=== PATIENT | male | born 1965 | race Caucasian/White ===

== ENCOUNTER → 2016-05-24 | Outpatient (CLI) | payer OTHER ==
[~2016-05-24] MED LIST: CHOLESTEROL MED; MCR5
--- NOTE | 2016-05-24 09:12 | DIAGNOSTIC IMAGING REPORT ---
LEFT HAND 3 VIEWS HISTORY: LEFT HAND PAIN COMPARISON: None. FINDINGS: There is no fracture or dislocation. Mild dorsal soft tissue swelling at the fifth MCP joint. No radiopaque foreign bodies. IMPRESSION: No fractures. Electronically signed by: Garret Arceo M.D. 05/24/2016 9:11 AM Dictated Date/Time: 05/24/2016 9:08 AM
== END | disposition home or self-care (01) ==
LOC: C.RAD1850 08:57
PROVIDERS: ATTEND Emergency Medicine
DX: M79.642 Pain in left hand (principal); W19.XXXA Unspecified fall, initial encounter

== ENCOUNTER → 2016-06-13 | Outpatient (CLI) | payer BC ==
[2016-06-13 13:17] LABS: ESTIMATED AVERAGE GLUCOSE 321 mg/dl; HA1C FLAG Normal (Normal)
[2016-06-13 13:29] LABS: CHOLESTEROL 178 mg/dl (0-200); HDL CHOLESTEROL 45 mg/dl; THYROID STIMULATING HORMONE 0.546 uIu/ml (0.300-4.500); TRIGLYCERIDES 118 mg/dl (0-150); VERY LOW DENSITY LIPOPROT CALC 24 mg/dl
== END | disposition home or self-care (01) ==
LOC: C.LABSPEC 12:38
PROVIDERS: ATTEND Internal Medicine
DX: E11.65 Type 2 diabetes mellitus with hyperglycemia (principal); E78.5 Hyperlipidemia, unspecified; R53.83 Other fatigue

== ENCOUNTER → 2016-10-09 | Outpatient (CLI) | payer BC ==
[~2016-10-09] MED LIST changes: +ASPI81TA28 PO; +FAMO40TA6 PO; +GLC/500 PO; +INSDGIPEN SC; +NVLGI/PEN PO; +NVLGI/PEN SQ; +SIMV80TA2 PO
[2016-10-09 14:19] LABS: ESTIMATED AVERAGE GLUCOSE 272 mg/dl; HA1C FLAG Normal (Normal)
[2016-10-09 15:12] LABS: BLOOD UREA NITROGEN 11 mg/dl (7-18); BUN/CREATININE RATIO 10.9 (10-20); CALCIUM 8.4 mg/dl (8.5-10.1); CARBON DIOXIDE 24 mmol/L (21-32); CHLORIDE 106 mmol/L (98-107); CHOLESTEROL 248 mg/dl (0-200); GLUCOSE 62 mg/dl (70-99); HDL CHOLESTEROL 50 mg/dl; POTASSIUM 3.5 mmol/L (3.5-5.1); SODIUM 142 mmol/L (136-145)
[2016-10-09 15:14] LABS: TRIGLYCERIDES 94 mg/dl (0-150); VERY LOW DENSITY LIPOPROT CALC 19 mg/dl
== END | disposition home or self-care (01) ==
LOC: C.LABSPEC 12:52
PROVIDERS: ATTEND Internal Medicine
DX: Z00.00 Encounter for general adult medical examination without abnormal findings (principal); E78.5 Hyperlipidemia, unspecified; E11.65 Type 2 diabetes mellitus with hyperglycemia

== ENCOUNTER 2017-03-16 17:36 | Emergency (ER) | payer BC ==
[~2017-03-16] VITALS: Ht 157.5 cm; Wt 75.5 kg
[~2017-03-16 17:36] MED LIST changes: -ASPI81TA28 PO; -FAMO40TA6 PO; -GLC/500 PO; -INSDGIPEN SC; -NVLGI/PEN PO; -NVLGI/PEN SQ; -SIMV80TA2 PO
[2017-03-16 17:54] VITALS: TEMP 36.8; Ht 157.5 cm; Wt 75.5 kg
--- NOTE | 2017-03-16 18:25 | EMERGENCY ROOM VISIT NOTE ---
History Report prepared by Tata: Juan Carlos Marie Under the Supervision of: Dr. Felix Hicks M.D. First contact with patient: 18:14 Chief Complaint: ABDOMINAL PAIN Stated Complaint: PAIN IN LEFT SIDE Nursing Triage Summary: abdominal pain. denies n/v/d. pain comes and goes History of Present Illness The patient is a 52 year old male who presents to the Emergency Room with complaints of worsening left-sided abdominal that started 2 days ago. He states that the pain really worsened today. The patient says that movement worsens the pain. He denies any injuries that would have caused the pain. He also denies any nausea, vomiting, diarrhea, fevers, sore throat, chest pain, headaches, constipation, urinary symptoms, or pain or swelling in his testicles. He notes no abdominal surgery history, and still has all his organs. He also notes no history of kidney stones. The patient adds that he has not done anything out of the ordinary at work at [employer] that might have started the pain. He says that when the pain gets really bad, he gets short of breath with bending over. The patient adds that he has had diabetes for 29 years, without any problems. He takes Metformin and insulins. Source of History: patient, family Onset: 2 days ago Position: abdomen (left sided) Quality: other (denies injury) Timing: worsening Modifying Factors (Worsening): movement Associated Symptoms: + SOB (with breathing), No fevers, No headache, No sorethroat, No chest pain, No nausea, No vomiting, No diarrhea, No urinary symptoms Note: Associated symptoms: Denies any constipation, pain or swelling in testicles. Review of Systems See HPI for pertinent positives & negatives. A total of 10 systems reviewed and were otherwise negative. Past Medical & Surgical Medical Problems: (1) Diabetes Old medical records were reviewed. Nurse's notes were reviewed and I agree with. Family History Diabetes mellitus FH: heart disease Hypertension Social History Smoking Status: Never Smoker Alcohol Use: none Marital Status: Housing Status: lives with family Occupation Status: employed Current/Historical Medications Scheduled Aspirin (Aspirin Ec), 81 MG PO DAILY Insulin Aspart (Novolog Flexpen), 25 UNITS PO QAM Insulin Aspart (Novolog Flexpen), 15 UNITS SQ QPM Insulin Glargine (Lantus Solostar), 50 SC QAM Insulin Glargine (Lantus Solostar), 25 SC QPM Metformin Hcl (Glucophage), 500 MG PO BID Simvastatin (Zocor), 80 MG PO QPM Allergies Coded Allergies: Ibuprofen (Verified Adverse Reaction, Unknown, VOMITING, 05/28/09) Physical Exam Vital Signs Date Time Temp Pulse Resp B/P (MAP) Pulse Ox O2 Delivery O2 Flow Rate FiO2 03/16/17 21:42 68 18 128/74 98 03/16/17 20:23 58 18 127/71 98 Room Air 03/16/17 17:54 36.8 86 18 128/79 96 Room Air Physical Exam General: Non-ill appearing middle-aged male in no acute distress. HEENT: Normal cephalic atraumatic. Pupils are equal round and reactive to light. Has baseline nystagmus. Oropharynx is pink with moist mucous membranes. No swelling of the mouth lips or tongue. Neck: Supple with a midline trachea. No meningeal signs or stiffness, no JVD or bruits. No Stridor. Chest: Clear to auscultation bilaterally. No wheezes or rhonchi. No increased work of breathing. Heart: regular rate and rhythm. Abdomen: Mildly tender to palpation in left mid-abdomen. Pain seems to be exacerbated with movement. No masses. Soft, nondistended without rebound guarding or rigidity. Extremities: No cyanosis clubbing or edema. No calf tenderness or assymetry Spine/Back. Non tender to palpation. No CVA tenderness Skin: Good turgor without rashes. Neurologic exam: Cranial nerves two through 12 are intact. Motor and sensation are intact and symmetrical throughout. Medical Decision & Procedures ER Provider Diagnostic Interpretation: CT results as stated below per my review and radiologist interpretation: ABDOMEN AND PELVIS CT WITHOUT CONTRAST CT DOSE: 407.78 mGy.cm HISTORY: Left-sided abdominal pain. eval for diverticulitis TECHNIQUE: Multiaxial CT images of the abdomen and pelvis were performed without contrast. A dose lowering technique was utilized adhering to the principles of ALARA. COMPARISON STUDY: Abdomen and pelvis CT 946. FINDINGS: Tree-in-bud nodular opacities seen within the lung bases. This favors an infectious bronchiolitis. No pneumoperitoneum. No pneumatosis. Mild subcutaneous fat stranding within the left anterolateral abdominal wall. This could represent a small soft tissue contusion. The unenhanced gallbladder, spleen, adrenal glands, kidneys, and pancreas are unremarkable. Mild central mesenteric fat stranding within a few prominent mesenteric lymph nodes. This favors a mild mesenteric panniculitis. Retroperitoneal lymph nodes measure subcentimeter in short axis diameter. Normal bladder. Suboptimal evaluation for bowel pathology due to the lack of intravenous and oral contrast. However, there is no definite bowel wall thickening or obstruction. Normal appendix. Stable 8 mm hypodense lesion within the right hepatic lobe. The long-term stability favors a cyst. IMPRESSION: 1. No definite bowel wall thickening or obstruction. 2. Mild subcutaneous fat stranding within the left anterior abdominal wall. This could represent a small soft tissue contusion. 3. Mild infectious bronchiolitis within the lung bases. 4. Mild mesenteric panniculitis. This is of doubtful clinical significance. 5. Normal appendix. Electronically signed by: Garret Arceo M.D. 03/16/2017 7:30 PM Dictated Date/Time: 03/16/2017 7:22 PM Laboratory Results 03/16/17 18:55 Red Blood Count 4.45, Mean Corpuscular Volume 89.9, Mean Corpuscular Hemoglobin 30.3, Mean Corpuscular Hemoglobin Concent 33.8, Mean Platelet Volume 9.5, Neutrophils (%) (Auto) 69.6, Lymphocytes (%) (Auto) 20.4, Monocytes (%) (Auto) 7.6, Eosinophils (%) (Auto) 1.8, Basophils (%) (Auto) 0.4, Neutrophils # (Auto) 3.40, Lymphocytes # (Auto) 1.00, Monocytes # (Auto) 0.37, Eosinophils # (Auto) 0.09, Basophils # (Auto) 0.02 03/16/17 18:55 Test 03/16/17 18:55 03/16/17 19:19 03/16/17 20:47 White Blood Count 4.89 K/uL (4.8-10.8) Red Blood Count 4.45 M/uL (4.7-6.1) Hemoglobin 13.5 g/dL (14.0-18.0) Hematocrit 40.0 % (42-52) Mean Corpuscular Volume 89.9 fL (80-100) Mean Corpuscular Hemoglobin 30.3 pg (25-34) Mean Corpuscular Hemoglobin Concent 33.8 g/dl (32-36) Platelet Count 180 K/uL (130-400) Mean Platelet Volume 9.5 fL (7.4-10.4) Neutrophils (%) (Auto) 69.6 % Lymphocytes (%) (Auto) 20.4 % Monocytes (%) (Auto) 7.6 % Eosinophils (%) (Auto) 1.8 % Basophils (%) (Auto) 0.4 % Neutrophils # (Auto) 3.40 K/uL (1.4-6.5) Lymphocytes # (Auto) 1.00 K/uL (1.2-3.4) Monocytes # (Auto) 0.37 K/uL (0.11-0.59) Eosinophils # (Auto) 0.09 K/uL (0-0.5) Basophils # (Auto) 0.02 K/uL (0-0.2) RDW Standard Deviation 41.5 fL (36.4-46.3) RDW Coefficient of Variation 12.7 % (11.5-14.5) Immature Granulocyte % (Auto) 0.2 % Immature Granulocyte # (Auto) 0.01 K/uL (0.00-0.02) Anion Gap 8.0 mmol/L (3-11) Est Creatinine Clear Calc Drug Dose 56.2 ml/min Estimated GFR () 67.4 Estimated GFR (Non- 58.2 BUN/Creatinine Ratio 11.0 (10-20) Calcium Level 8.4 mg/dl (8.5-10.1) Total Bilirubin 0.3 mg/dl (0.2-1) Direct Bilirubin mg/dl (0-0.2) Aspartate Amino Transf (AST/SGOT) 11 U/L (15-37) Alanine Aminotransferase (ALT/SGPT) 27 U/L (12-78) Alkaline Phosphatase 94 U/L (45-117) Total Protein 7.0 gm/dl (6.4-8.2) Albumin 3.7 gm/dl (3.4-5.0) Lipase 257 U/L (73-393) Beta-Hydroxybutyric Acid 1.41 mg/dL (0.2-2.81) Chemistry Specimen Hemolysis Urine Color YELLOW Urine Appearance CLEAR (CLEAR) Urine pH 5.5 (4.5-7.5) Urine Specific [place] 1.035 (1.000-1.030) Urine Protein NEG (NEG) Urine Glucose (UA) 3+ (NEG) Urine Ketones NEG (NEG) Urine Occult Blood NEG (NEG) Urine Nitrite NEG (NEG) Urine Bilirubin NEG (NEG) Urine Urobilinogen NEG (NEG) Urine Leukocyte Esterase NEG (NEG) Bedside Glucose 443 mg/dl (70-99) Laboratory studies as stated above per my review. Medications Administered Medications (Trade) Dose Ordered Sig/Mari Route Start Time Stop Time Status Last Admin Dose Admin Insulin Human Regular (novoLIN-R U-100 PER UNIT) 10 units NOW STAT IV 03/16/17 20:05 03/16/17 20:06 DC 03/16/17 20:05 10 UNITS ED Course 1814: Past medical records reviewed. The patient was evaluated in room B3A, and a complete history and physical examination were performed. 1904: The patient just went to CT. 2003: I reevaluated the patient and he is asking for something to drink. His blood sugar is 636 but he forgot to take his medication today. 2004: Ordered Novolin-R U-100 PER UNIT 10 units IV. 2124: Upon reevaluation, the patient is resting. I discussed the results and treatment plan with him. He verbalized agreement of the treatment plan. The patient was discharged home. Medical Decision Differentials include diverticulitis, colitis, musculoskeletal, kidney stone, infection, electrolyte or metabolic abnormality., This patient comes in as described above. He's been having pain for about 2 days in his left mid abdomen and it hurts worse with movement. There's been no trauma. He does have a history of diabetes as well. IV access established and blood work was obtained. I did order a CAT scan without IV contrast given the fact that he is on metformin. He was reassessed frequently. He initially declined pain medication. He has nothing to suggest infection or sepsis. His CAT scan shows no acute intra-abdominal process there is some stranding in the abdominal wall on the left which could be consistent with a contusion this is area he does hurt. It was noted that his blood sugar was over 600 however he has no ketones and no acidosis. He tells me that he ate and did not take his insulin tonight. I educated him that he needs to make sure he does not do that. He was given regular insulin 10 units IV and rechecked it come down and was in the 400 range. He does have a glucometer and he can feel his blood sugar gets low. He desires to go home and I do think this is reasonable. He should use ibuprofen for the pain. He checked his blood sugar frequently especially before bedtime. I told him that I do not want to bottom out tonight and ensure that he does not overcompensate treatment of his blood sugar and if anything run a little high this evening. I recommend that he follow-up with his doctor Sunday for recheck return to ER over the weekend if any further problems with blood sugar, fever or chills, increasing pain, any new problems or concerns. He was happy the plan and discharged to home. Medication Reconcilliation Current Medication List: was personally reviewed by me Blood Pressure Screening Patient's blood pressure: Normal blood pressure Impression Primary Impression: LLQ abdominal pain Additional Impression: Hyperglycemia Scribe Attestation The scribe's documentation has been prepared under my direction and personally reviewed by me in its entirety. I confirm that the note above accurately reflects all work, treatment, procedures, and medical decision making performed by me. Departure Information Dispostion Home / Self-Care Referrals Chas Rod M.D. (PCP) Forms Call Back Authorization, HOME CARE DOCUMENTATION FORM, IMPORTANT VISIT INFORMATION Patient Instructions My [facility] [place] [employer] Additional Instructions Rest. Use acetaminophen (Tylenol ) a maximum of 650 mg every 6 hours Check your blood sugar frequently and especially before bedtime Ensure that you do not miss your insulin in the future Return if: Increasing pain, worsening of symptoms, fever or chills, any new problems or concerns Follow-up with your doctor Sunday for recheck Problem Qualifiers
[2017-03-16 19:15] LABS: BASO % 0.4 %; BASO ABS # 0.02 K/uL (0-0.2); COMPLETE YES; EOS % 1.8 %; IG% 0.2 %; LYMPH % 20.4 %; MEAN CELL VOLUME 89.9 fL (80-100); MEAN CORPUSCULAR HEMOGLOBIN 30.3 pg (25-34); MEAN CORPUSCULAR HGB CONC 33.8 g/dl (32-36); MEAN PLATELET VOLUME 9.5 fL (7.4-10.4); MONO % 7.6 %; NEUT % 69.6 %; PLATELET COUNT 180 K/uL (130-400); RED BLOOD COUNT 4.45 M/uL (4.7-6.1); WHITE BLOOD COUNT 4.89 K/uL (4.8-10.8)
[2017-03-16] MEDS ORDERED: GLC/500 PO (19:16)
[2017-03-16] MEDS ORDERED: SIMV80TA2 PO (19:16)
[2017-03-16] MEDS ORDERED: NVLGI/PEN PO (19:16)
[2017-03-16] MEDS ORDERED: INSDGIPEN SC ×2 (19:16)
[2017-03-16] MEDS ORDERED: ASPI81TA28 PO (19:16)
[2017-03-16] MEDS ORDERED: NVLGI/PEN SQ (19:16)
--- NOTE | 2017-03-16 19:32 | DIAGNOSTIC IMAGING REPORT ---
ABDOMEN AND PELVIS CT WITHOUT CONTRAST CT DOSE: 407.78 mGy.cm HISTORY: Left-sided abdominal pain. eval for diverticulitis TECHNIQUE: Multiaxial CT images of the abdomen and pelvis were performed without contrast. A dose lowering technique was utilized adhering to the principles of ALARA. COMPARISON STUDY: Abdomen and pelvis CT 946. FINDINGS: Tree-in-bud nodular opacities seen within the lung bases. This favors an infectious bronchiolitis. No pneumoperitoneum. No pneumatosis. Mild subcutaneous fat stranding within the left anterolateral abdominal wall. This could represent a small soft tissue contusion. The unenhanced gallbladder, spleen, adrenal glands, kidneys, and pancreas are unremarkable. Mild central mesenteric fat stranding within a few prominent mesenteric lymph nodes. This favors a mild mesenteric panniculitis. Retroperitoneal lymph nodes measure subcentimeter in short axis diameter. Normal bladder. Suboptimal evaluation for bowel pathology due to the lack of intravenous and oral contrast. However, there is no definite bowel wall thickening or obstruction. Normal appendix. Stable 8 mm hypodense lesion within the right hepatic lobe. The long-term stability favors a cyst. IMPRESSION: 1. No definite bowel wall thickening or obstruction. 2. Mild subcutaneous fat stranding within the left anterior abdominal wall. This could represent a small soft tissue contusion. 3. Mild infectious bronchiolitis within the lung bases. 4. Mild mesenteric panniculitis. This is of doubtful clinical significance. 5. Normal appendix. Electronically signed by: Garret Arceo M.D. 03/16/2017 7:30 PM Dictated Date/Time: 03/16/2017 7:22 PM
[2017-03-16 19:39] LABS: URINE APPEARANCE CLEAR (CLEAR); URINE BILIRUBIN NEG (NEG); URINE COLOR YELLOW; URINE NITRITE NEG (NEG); URINE PH 5.5 (4.5-7.5); URINE SPECIFIC GRAVITY 1.035 (1.000-1.030); UROBILINOGEN NEG (NEG)
[2017-03-16 19:41] LABS: ALKALINE PHOSPHATASE 94 U/L (45-117); ALT/SGPT 27 U/L (12-78); AST/SGOT 11 U/L (15-37); BLOOD UREA NITROGEN 15 mg/dl (7-18); CALCIUM 8.4 mg/dl (8.5-10.1); CARBON DIOXIDE 24 mmol/L (21-32); CHLORIDE 97 mmol/L (98-107); GLUCOSE 636 mg/dl (70-99); POTASSIUM 4.4 mmol/L (3.5-5.1); SODIUM 129 mmol/L (136-145)
[2017-03-16 19:42] LABS: MANUAL MICROSCOPIC REQUIRED? NO; REVIEW REQ? NO
[2017-03-16 19:57] LABS: BETA-HYDROXYBUTYRATE 1.41 mg/dL (0.2-2.81)
[2017-03-16] MEDS ORDERED: NovoLIN-R INSULIN PER UNIT CHARGE IV STA (20:05)
[2017-03-16 21:42] VITALS: BP 128/74; PULSE 68; O2SAT 98
== END 2017-03-16 21:47 | disposition home or self-care (01) ==
LOC: C.EDB 17:37
DX: R10.32 Left lower quadrant pain (principal); E11.65 Type 2 diabetes mellitus with hyperglycemia; Z79.4 Long term (current) use of insulin; Z79.82 Long term (current) use of aspirin; Z79.84 Long term (current) use of oral hypoglycemic drugs; Z79.899 Other long term (current) drug therapy; Z88.6 Allergy status to analgesic agent; Z83.3 Family history of diabetes mellitus; Z82.49 Family history of ischemic heart disease and other diseases of the circulatory system

== ENCOUNTER 2017-03-18 10:42 | Emergency (ER) | payer BC ==
[~2017-03-18] VITALS: Ht 162.6 cm; Wt 72.2 kg
[~2017-03-18 10:42] MED LIST changes: +ASPI81TA28 PO; -CHOLESTEROL MED; +GLC/500 PO; +INSDGIPEN SC; -MCR5; +NVLGI/PEN PO; +NVLGI/PEN SQ; +SIMV80TA2 PO
[2017-03-18 10:52] VITALS: Ht 162.6 cm; Wt 72.2 kg
[2017-03-18] MEDS ORDERED: ONDANSETRON INJ 2 MG/ML 2 ML VIAL IV STA (11:18)
[2017-03-18] MEDS ORDERED: GI COCKTAIL PO STA (11:18)
[2017-03-18 11:27] LABS: BASO % 0.3 %; BASO ABS # 0.02 K/uL (0-0.2); COMPLETE YES; EOS % 1.9 %; HEMATOCRIT 42.1 % (42-52); IG% 0.2 %; LYMPH % 14.5 %; LYMPH ABS # 0.85 K/uL (1.2-3.4); MEAN CELL VOLUME 87.7 fL (80-100); MEAN CORPUSCULAR HEMOGLOBIN 30.2 pg (25-34); MEAN CORPUSCULAR HGB CONC 34.4 g/dl (32-36); MEAN PLATELET VOLUME 9.2 fL (7.4-10.4); MONO % 6.5 %; NEUT % 76.6 %; PLATELET COUNT 203 K/uL (130-400); WHITE BLOOD COUNT 5.87 K/uL (4.8-10.8)
[2017-03-18] MEDS ORDERED: FAMOTIDINE 20 MG TAB PO ONE (11:30)
[2017-03-18 11:39] LABS: ALT/SGPT 29 U/L (12-78); AST/SGOT 13 U/L (15-37); BLOOD UREA NITROGEN 11 mg/dl (7-18); BUN/CREATININE RATIO 10.3 (10-20); CALCIUM 8.4 mg/dl (8.5-10.1); CARBON DIOXIDE 27 mmol/L (21-32); CHLORIDE 99 mmol/L (98-107); CREATININE 1.11 mg/dl (0.60-1.40); GLUCOSE 304 mg/dl (70-99); POTASSIUM 3.9 mmol/L (3.5-5.1); SODIUM 134 mmol/L (136-145)
[2017-03-18 11:48] LABS: INR 0.9 (0.9-1.1)
[2017-03-18 11:49] LABS: ALKALINE PHOSPHATASE 79 U/L (45-117); BETA-HYDROXYBUTYRATE 1.29 mg/dL (0.2-2.81)
--- NOTE | 2017-03-18 11:53 | EMERGENCY ROOM VISIT NOTE ---
History Report prepared by Tata: Steve Mejía Under the Supervision of: Dr. Jeronimo Cyr M.D. First contact with patient: 10:59 Chief Complaint: CHEST PAIN Stated Complaint: LEFT ARM AND CHEST PAIN, LEFT SIDE OF STOMACH PAIN History of Present Illness The patient is a 52 year old white male with a past medical history of DM who presents to the ED with a cc of constant, burning, upper chest pain beginning last evening. Patient's last BM was last evening and it was normal. Walking intensifies his pain. Trying Tylenol for pain, but it has showed no relief. Positive 'ball' in his left arm that causes intermittent numbness, left sided abdominal pain, uses chewing tobacco. Negative bad taste in mouth, nausea, vomiting, sweating, changes in medication, cough, chills, fevers, history of blood clots in the legs and lungs, missing medication doses, trauma, heavy lifting, recent travel. Source of History: patient Onset: last evening Position: chest (upper) Quality: burning Timing: constant Modifying Factors (Worsening): other (walking) Associated Symptoms: + abdominal pain, + numbness (intermittent in the left arm, caused by a 'ball' in the arm), No fevers, No chills, No cough, No nausea, No vomiting Note: Negative bad taste in mouth, sweating, changes in medication, history of blood clots in the legs and lungs, missing medication doses, trauma, heavy lifting, recent travel. Review of Systems See HPI for pertinent positives and negatives. A total of ten systems were reviewed and were otherwise negative. Past Medical & Surgical Medical Problems: (1) Diabetes Family History Diabetes mellitus FH: heart disease Hypertension Social History Smoking Status: Never Smoker Smokeless Tobacco Use: Yes Alcohol Use: none Marital Status: Housing Status: lives with significant other Occupation Status: employed Current/Historical Medications Scheduled Aspirin (Aspirin Ec), 81 MG PO DAILY Famotidine (Pepcid), 40 MG PO QD Insulin Aspart (Novolog Flexpen), 25 UNITS PO QAM Insulin Aspart (Novolog Flexpen), 15 UNITS SQ QPM Insulin Glargine (Lantus Solostar), 50 UNITS SC QAM Insulin Glargine (Lantus Solostar), 25 UNITS SC QPM Metformin Hcl (Glucophage), 500 MG PO BID Simvastatin (Zocor), 80 MG PO QPM Allergies Coded Allergies: Ibuprofen (Verified Adverse Reaction, Unknown, VOMITING, 03/18/17) Physical Exam Vital Signs Date Time Temp Pulse Resp B/P (MAP) Pulse Ox O2 Delivery O2 Flow Rate FiO2 03/18/17 14:07 37.0 68 18 108/63 98 03/18/17 11:18 98 Room Air 03/18/17 11:13 72 03/18/17 10:52 37.0 78 18 138/79 98 Room Air Physical Exam GENERAL: Awake, alert, well-appearing, NAD HENT: Normocephalic, atraumatic. EYES: Normal conjunctiva. Sclera non-icteric. NECK: Supple. No nuchal rigidity. FROM. RESPIRATORY: CTAB, no rhonchi, wheezing, crackles CARDIAC: RRR, no MRG ABDOMEN: Soft, ND, BS+, Very mild left abdominal discomfort. Not peritonitic. MSK: No chest wall TTP, no LE edema NEURO: GCS 15, CN 2-12 intact, moves all 4s on command SKIN: No rash or jaundice noted. Medical Decision & Procedures ER Provider Diagnostic Interpretation: X-ray: Per my interpretation, radiologist review. CHEST ONE VIEW PORTABLE HISTORY: Atypical CHEST PAIN COMPARISON: Chest 12/25/2005. FINDINGS: The lungs are clear. Cardiac silhouette is normal in size. No pleural effusions. No pneumothorax. IMPRESSION: No acute process. Electronically signed by: Garret Arceo M.D. 03/18/2017 12:22 PM Dictated Date/Time: 03/18/2017 12:21 PM Laboratory Results 03/18/17 11:04 Red Blood Count 4.80, Mean Corpuscular Volume 87.7, Mean Corpuscular Hemoglobin 30.2, Mean Corpuscular Hemoglobin Concent 34.4, Mean Platelet Volume 9.2, Neutrophils (%) (Auto) 76.6, Lymphocytes (%) (Auto) 14.5, Monocytes (%) (Auto) 6.5, Eosinophils (%) (Auto) 1.9, Basophils (%) (Auto) 0.3, Neutrophils # (Auto) 4.50, Lymphocytes # (Auto) 0.85, Monocytes # (Auto) 0.38, Eosinophils # (Auto) 0.11, Basophils # (Auto) 0.02 03/18/17 11:04 Test 03/18/17 11:04 03/18/17 11:45 White Blood Count 5.87 K/uL (4.8-10.8) Red Blood Count 4.80 M/uL (4.7-6.1) Hemoglobin 14.5 g/dL (14.0-18.0) Hematocrit 42.1 % (42-52) Mean Corpuscular Volume 87.7 fL (80-100) Mean Corpuscular Hemoglobin 30.2 pg (25-34) Mean Corpuscular Hemoglobin Concent 34.4 g/dl (32-36) Platelet Count 203 K/uL (130-400) Mean Platelet Volume 9.2 fL (7.4-10.4) Neutrophils (%) (Auto) 76.6 % Lymphocytes (%) (Auto) 14.5 % Monocytes (%) (Auto) 6.5 % Eosinophils (%) (Auto) 1.9 % Basophils (%) (Auto) 0.3 % Neutrophils # (Auto) 4.50 K/uL (1.4-6.5) Lymphocytes # (Auto) 0.85 K/uL (1.2-3.4) Monocytes # (Auto) 0.38 K/uL (0.11-0.59) Eosinophils # (Auto) 0.11 K/uL (0-0.5) Basophils # (Auto) 0.02 K/uL (0-0.2) RDW Standard Deviation 40.5 fL (36.4-46.3) RDW Coefficient of Variation 12.6 % (11.5-14.5) Immature Granulocyte % (Auto) 0.2 % Immature Granulocyte # (Auto) 0.01 K/uL (0.00-0.02) Prothrombin Time 10.0 SECONDS (9.0-12.0) Prothromb Time International Ratio 0.9 (0.9-1.1) Activated Partial Thromboplast Time 25.7 SECONDS (21.0-31.0) Partial Thromboplastin Ratio 1.0 Anion Gap 8.0 mmol/L (3-11) Est Creatinine Clear Calc Drug Dose 72.5 ml/min Estimated GFR () 89.3 Estimated GFR (Non- 77.0 BUN/Creatinine Ratio 10.3 (10-20) Calcium Level 8.4 mg/dl (8.5-10.1) Total Bilirubin 0.3 mg/dl (0.2-1) Direct Bilirubin < 0.1 mg/dl (0-0.2) Aspartate Amino Transf (AST/SGOT) 13 U/L (15-37) Alanine Aminotransferase (ALT/SGPT) 29 U/L (12-78) Alkaline Phosphatase 79 U/L (45-117) Troponin I < 0.015 ng/ml (0-0.045) Pro-B-Type Natriuretic Peptide 17 pg/ml (0-900) Total Protein 7.2 gm/dl (6.4-8.2) Albumin 3.7 gm/dl (3.4-5.0) Lipase 155 U/L (73-393) Beta-Hydroxybutyric Acid 1.29 mg/dL (0.2-2.81) Urine Color YELLOW Urine Appearance CLEAR (CLEAR) Urine pH 5.0 (4.5-7.5) Urine Specific [place] > 1.045 (1.000-1.030) Urine Protein NEG (NEG) Urine Glucose (UA) 3+ (NEG) Urine Ketones NEG (NEG) Urine Occult Blood NEG (NEG) Urine Nitrite NEG (NEG) Urine Bilirubin NEG (NEG) Urine Urobilinogen NEG (NEG) Urine Leukocyte Esterase NEG (NEG) Laboratory results reviewed by me Medications Administered Medications (Trade) Dose Ordered Sig/Mari Route Start Time Stop Time Status Last Admin Dose Admin Miscellaneous Medication (Gi Cocktail) 24 ml ONE STAT PO 03/18/17 11:18 03/18/17 11:21 DC 03/18/17 12:42 24 ML Famotidine (Pepcid Tab) 20 mg NOW ONCE PO 03/18/17 11:30 03/18/17 11:31 DC 03/18/17 12:42 20 MG Ondansetron HCl (Zofran Inj) 4 mg NOW STAT IV 03/18/17 11:18 03/18/17 11:21 DC 03/18/17 12:44 4 MG ECG Indication: abdominal pain Rate (beats per minute): 63 Rhythm: normal sinus Findings: no ectopy, other (Normal interval, normal axis, no STS or TWI) ED Course 1126: The patient was evaluated in room B12B. A complete history and physical exam was performed. 1308: I reevaluated the patient. Discussed results and discharge instructions: he verbalized understanding and agreement. The patient is ready for discharge. Medical Decision The patient is a 52 year old white male with a past medical history of DM who presents to the ED with a cc of constant, burning, upper chest pain beginning last evening. Etiologies such as cardiac ischemia, aortic dissection, pulmonary embolism, pneumonia, pneumothorax, musculoskeletal, infections, pericarditis, myocarditis, esophageal rupture, gastrointestinal, as well as others were entertained. Patient was seen and evaluated at the bedside. Patient has a known history of diabetes and stated he was having some lower abdominal pain that began on Sunday. Patient denies any nausea or vomiting. Patient states that today he woke up with some burning type chest pain that is across the anterior chest. It does not radiate to the arm or jaw. He denies any lower extremity swelling history of DVT or PE or recent prolonged car or plane travel. Patient states that he takes medications as prescribed. Patient denies any infectious symptoms. Patient states sometimes his pain is worse when he walks. States he does not have a bad taste in the back of his mouth. Patient did have blood work that was completed along with an EKG troponin and chest x-ray. Patient was given treatment for his discomfort. Patient's EKG was normal sinus and did not show any acute ischemic changes. Patient troponin was negative. LFTs and lipase within normal limits. Patient does have elevated glucose. Anion gap within normal limits. Urinalysis negative. Chest x-ray clear. Patient's pain improved. Patient did have a moderately suspicious story given this disconnected but apparent left arm pain. Patient also described his pain as burning and questionably exertional without any nausea, vomiting, diaphoresis or pressure-like pain. Patient less likely PE given a Wells of 0. Given that he had a moderately suspicious story with a normal EKG and negative troponin after 3 days of symptoms and given some mild risk factors he had a heart score of 3 which may have low risk for an suitable for outpatient follow-up and treatment. I did discuss this with the patient was agreeable to this plan of care. Patient was given strict follow-up, discharge, and return precautions. All questions were answered. Patient was deemed suitable for outpatient follow-up at this time. Patient agreed with the plan of care and was safely discharged home. Impression Primary Impression: Tobacco abuse counseling Additional Impressions: Chest pain Abdominal pain Scribe Attestation The scribe's documentation has been prepared under my direction and personally reviewed by me in its entirety. I confirm that the note above accurately reflects all work, treatment, procedures, and medical decision making performed by me. Departure Information Dispostion Home / Self-Care Prescriptions Famotidine (PEPCID) 40 Mg Tab 40 MG PO QD for 30 Days, #30 TAB Prov: Jeronimo Cyr M.D. 03/18/17 Referrals No Doctor, Assigned (PCP) Forms Call Back Authorization, HOME CARE DOCUMENTATION FORM, IMPORTANT VISIT INFORMATION Patient Instructions Chest Pain - [facility], ED GERD, [facility] Additional Instructions Please return to the emergency department if you have worsening or recurrent symptoms not amenable to at-home treatment. Please call for a follow-up appointment with her primary care physician. Please take your medications as prescribed. If you have other concerns and/or complaints please feel free to also call your primary care physician's office or return the ED for further evaluation, management, and treatment. Continued to take your medications as prescribed. Avoid using NSAIDs. Consider smaller meals and avoid spicy or citrus foods. Also consider not laying down after eating. Please follow-up with your PCP for further evaluation. Take your medications as prescribed. You have been examined and treated today on an emergency basis only. This is not a substitute for, or an effort to provide, complete comprehensive medical care. It is impossible to recognize and treat all injuries or illnesses in a single emergency department visit. It is therefore important that you follow up closely with [facility], your PCP, and/or your specialist(s). Call as soon as possible for an appointment. Thank you for your time and consideration. I look forward to speaking with you again soon. Please don't hesitate to call us if you have any questions. Problem Qualifiers Additional Impressions: Chest pain Chest pain type: unspecified Qualified Codes: R07.9 - Chest pain, unspecified Abdominal pain Abdominal location: unspecified location Qualified Codes: R10.9 - Unspecified abdominal pain
[2017-03-18 12:05] LABS: URINE APPEARANCE CLEAR (CLEAR); URINE BILIRUBIN NEG (NEG); URINE COLOR YELLOW; URINE NITRITE NEG (NEG); URINE SPECIFIC GRAVITY > 1.045 (1.000-1.030); UROBILINOGEN NEG (NEG); ZZUR CULT IF INDIC CLEAN CATCH NO
--- NOTE | 2017-03-18 12:23 | DIAGNOSTIC IMAGING REPORT ---
CHEST ONE VIEW PORTABLE HISTORY: Atypical CHEST PAIN COMPARISON: Chest 12/25/2005. FINDINGS: The lungs are clear. Cardiac silhouette is normal in size. No pleural effusions. No pneumothorax. IMPRESSION: No acute process. Electronically signed by: Garret Arceo M.D. 03/18/2017 12:22 PM Dictated Date/Time: 03/18/2017 12:21 PM
[2017-03-18 12:26] LABS: MANUAL MICROSCOPIC REQUIRED? NO; REVIEW REQ? NO
[2017-03-18] MEDS ORDERED: LIDOCAINE HCL 2% VISC SOLN 20 ML UDC ONE (12:35)
[2017-03-18] MEDS ORDERED: ALUMINUM/MAGNESIUM SUSP 30 ML UDC ONE (12:35)
[2017-03-18] MEDS ORDERED: FAMO40TA6 PO (13:28)
[2017-03-18 14:07] VITALS: BP 108/63; PULSE 68; TEMP 37; O2SAT 98
== END 2017-03-18 14:10 | disposition home or self-care (01) ==
LOC: C.EDB 10:43
DX: Z71.6 Tobacco abuse counseling (principal); R07.9 Chest pain, unspecified; R10.9 Unspecified abdominal pain; E11.9 Type 2 diabetes mellitus without complications; F17.290 Nicotine dependence, other tobacco product, uncomplicated; Z83.3 Family history of diabetes mellitus; Z82.49 Family history of ischemic heart disease and other diseases of the circulatory system; Z79.4 Long term (current) use of insulin; Z79.82 Long term (current) use of aspirin; Z79.84 Long term (current) use of oral hypoglycemic drugs

== ENCOUNTER → 2017-04-10 | Outpatient (CLI) | payer BC ==
[~2017-04-10] MED LIST changes: +FAMO40TA6 PO
--- NOTE | 2017-04-10 11:55 | EXERCISE STRESS ECHO ---
*NOTICE TO RECEIVING [employer] This information is strictly Confidential and protected under [place] law. [place] law prohibits you from making any further disclosure of this information unless further disclosure is expressly permitted by the written consent of the person to whom it pertains or is authorized by law. A general authorization for the release of medical or other information is not sufficient for this purpose. Hospital accepts no responsibility if the information is made available to any other person, INCLUDING THE PATIENT. Interpretation Summary * Name: DAPHNIE GANDARA III Study Date: 04/10/2017 09:43 AM BP: 124/79 mmHg * Patient Location: [facility] [place] HR: 99 * : 1965 (M/d/yyyy) Gender: Male Height: 63 in * Age: 52 yrs Ethnicity: [place] Weight: 155 lb * Ordering Physician: Chas Rod * Referring Physician: Chas Rod * Performed By: Safia Cuellar RDCS * * Reason For Study: Exertional chest pain * BSA: 1.7 m2 * -- Conclusions -- * Left ventricular systolic function is normal. * Grade I diastolic dysfunction, (abnormal relaxation pattern). * Early positive stress echocardiogram with evidence of ischemia in the anterior and lateral coronary distribution. Procedure Details * ECHOEX, CPT #[id number] * ECHO DOPPLER, CPT #[id number] * ECHO COLOR FLOW, CPT #[id number] Left Ventricular Findings with Stress * Early positive stress echocardiogram with evidence of ischemia in the anterior and lateral coronary distribution. Left Ventricle * The left ventricle is normal in size. * There is normal left ventricular wall thickness. * Ejection Fraction = 50-55%. * Left ventricular systolic function is normal. * Grade I diastolic dysfunction, (abnormal relaxation pattern). * The left ventricular wall motion is normal at rest. Right Ventricle * The right ventricle is normal in size and function. * The right ventricular systolic function is normal as assessed by tricuspid annular plane systolic excursion (TAPSE) (normal >1.5 cm). Atria * The left atrial size is normal. * Right atrial size is normal. Mitral Valve * The mitral valve anatomy is normal. * Significant mitral regurgitation is absent. Tricuspid Valve * The tricuspid valve is not well visualized, but is grossly normal. * Significant tricuspid regurgitation is absent. Aortic Valve * The aortic valve is normal in structure and function. * The aortic valve is trileaflet. * No hemodynamically significant valvular aortic stenosis. * There is no significant aortic regurgitation. Great Vessels * The aortic root is normal size. Pericardium * There is no pericardial effusion. Stress Parameters * Normal baseline electrocardiogram. * Patient developed 1-2 millimeter flat to upsloping ST segment depression in stage I which resolved within 1 minutes of recovery. * Rest heart rate was '99' BPM. * Rest blood pressure was '124/79' * Maximum heart rate achieved was 155 bpm. * Maximum heart rate was 91 % of maximum age-predicted heart rate. * Maximum blood pressure was '156/91' * Total exercise time was '3:00' * Maximum exercise MET level achieved was '4.60' METS * Maximum treadmill speed was '1.70' miles per hour. * Maximum treadmill elevation was '10.20'% grade. * Exercise was terminated due to 'patient request' Left Ventricular Findings with Stress * Patient exercised for total of 3 minutes. The test was stopped due to development of chest discomfort and EKG changes Baseline EKG was normal Patient developed 1-[address] segment depressions with exercise Baseline echocardiogram was normal Stress echocardiogram demonstrated inducible wall motion abnormality involving akinesis of the distal lateral wall and moderate hypokinesis of the mid to distal anterior wall MMode 2D Measurements and Calculations IVSd 0.83 cm LVIDd 3.9 cm LVIDs 2.8 cm LVPWd 0.94 cm IVS/LVPW 0.89 FS 27.3 % EDV(Teich) 66.5 ml ESV(Teich) 30.7 ml EF(Teich) 53.8 % EDV(cubed) 60.0 ml ESV(cubed) 23.0 ml EF(cubed) 61.6 % LV mass(C)d 103.8 grams LV mass(C)dI 59.8 grams/m\S\2 SV(Teich) 35.7 ml SI(Teich) 20.6 ml/m\S\2 SV(cubed) 36.9 ml SI(cubed) 21.3 ml/m\S\2 Ao root diam 2.7 cm Ao root area 5.9 cm\S\2 ACS 1.4 cm LA dimension 2.8 cm asc Aorta Diam 3.0 cm LA/Ao 1.0 LVOT diam 2.0 cm LVOT area 3.2 cm\S\2 LVAd ap4 22.9 cm\S\2 LVLd ap4 7.8 cm EDV(MOD-sp4) 56.3 ml EDV(sp4-el) 57.0 ml LVAs ap4 13.9 cm\S\2 LVLs ap4 6.4 cm ESV(MOD-sp4) 26.8 ml ESV(sp4-el) 25.6 ml EF(MOD-sp4) 52.4 % EF(sp4-el) 55.1 % LVAd ap2 20.5 cm\S\2 LVLd ap2 7.4 cm EDV(MOD-sp2) 48.3 ml EDV(sp2-el) 47.8 ml LVAs ap2 12.8 cm\S\2 LVLs ap2 6.3 cm ESV(MOD-sp2) 22.9 ml ESV(sp2-el) 22.1 ml EF(MOD-sp2) 52.7 % EF(sp2-el) 53.7 % LVLd %diff -5.41 % EDV(MOD-bp) 53.5 ml LVLs %diff -1.79 % ESV(MOD-bp) 24.8 ml EF(MOD-bp) 53.6 % SV(MOD-sp4) 29.5 ml SI(MOD-sp4) 17.0 ml/m\S\2 SV(MOD-sp2) 25.5 ml SI(MOD-sp2) 14.7 ml/m\S\2 SV(MOD-bp) 28.7 ml SI(MOD-bp) 16.6 ml/m\S\2 SV(sp4-el) 31.4 ml SI(sp4-el) 18.1 ml/m\S\2 SV(sp2-el) 25.6 ml SI(sp2-el) 14.8 ml/m\S\2 Doppler Measurements and Calculations MV E max marimar 62.6 cm/sec MV A max marimar 61.1 cm/sec MV E/A 1.0 MV dec time 0.16 sec Ao V2 max 116.7 cm/sec Ao max PG 5.5 mmHg Ao max PG (full) 0.77 mmHg JUAN R(V,A) 2.9 cm\S\2 JUAN R(V,D) 2.9 cm\S\2 LV V1 max PG 4.7 mmHg LV V1 max 108.2 cm/sec PA V2 max 85.5 cm/sec PA max PG 2.9 mmHg PA acc slope 564.4 cm/sec\S\2 PA acc time 0.11 sec PA pr(Accel) 29.9 mmHg
== END | disposition home or self-care (01) ==
LOC: C.CPL 09:28
PROVIDERS: ATTEND Internal Medicine
DX: R07.89 Other chest pain (principal)

== ENCOUNTER → 2017-04-10 | Outpatient (CLI) | payer BC ==
[2017-04-10 16:41] LABS: URINE APPEARANCE CLEAR (CLEAR); URINE BILIRUBIN NEG (NEG); URINE COLOR YELLOW; URINE NITRITE NEG (NEG); URINE SPECIFIC GRAVITY 1.025 (1.000-1.030); UROBILINOGEN NEG (NEG)
[2017-04-10 16:42] LABS: BASO % 0.4 %; BASO ABS # 0.02 K/uL (0-0.2); COMPLETE YES; EOS % 2.2 %; HEMATOCRIT 42.3 % (42-52); IG% 0.2 %; LYMPH % 25.2 %; LYMPH ABS # 1.39 K/uL (1.2-3.4); MEAN CELL VOLUME 87.9 fL (80-100); MEAN CORPUSCULAR HEMOGLOBIN 30.1 pg (25-34); MEAN CORPUSCULAR HGB CONC 34.3 g/dl (32-36); MEAN PLATELET VOLUME 9.1 fL (7.4-10.4); PLATELET COUNT 201 K/uL (130-400); RED BLOOD COUNT 4.81 M/uL (4.7-6.1); WHITE BLOOD COUNT 5.51 K/uL (4.8-10.8)
--- NOTE | 2017-04-10 16:47 | DIAGNOSTIC IMAGING REPORT ---
CHEST 2 VIEWS ROUTINE HISTORY: 52 years-old Male I25.10 PRE-OP preoperative exam. No acute chest complaints. COMPARISON: Chest radiograph 03/18/2017 TECHNIQUE: PA and lateral views of the chest FINDINGS: Cardiomediastinal and hilar silhouettes are within normal limits. No pneumothorax, pleural effusion, focal airspace consolidation or overt pulmonary edema. Bones of the chest are grossly intact. Mild degenerative changes of the shoulders and spine. IMPRESSION: No acute process. The above report was generated using voice recognition software. It may contain grammatical, syntax or spelling errors. Electronically signed by: Bassam Moffett M.D. 04/10/2017 4:45 PM Dictated Date/Time: 04/10/2017 4:44 PM
[2017-04-10 16:49] LABS: MANUAL MICROSCOPIC REQUIRED? NO; REVIEW REQ? NO
[2017-04-10 17:24] LABS: BLOOD UREA NITROGEN 16 mg/dl (7-18); BUN/CREATININE RATIO 15.6 (10-20); CALCIUM 9.3 mg/dl (8.5-10.1); CARBON DIOXIDE 28 mmol/L (21-32); CHLORIDE 100 mmol/L (98-107); CREATININE 1.02 mg/dl (0.60-1.40); GLUCOSE 188 mg/dl (70-99); POTASSIUM 3.7 mmol/L (3.5-5.1); SODIUM 136 mmol/L (136-145)
== END | disposition home or self-care (01) ==
LOC: C.RAD 15:47
PROVIDERS: ATTEND Internal Medicine
DX: Z01.812 Encounter for preprocedural laboratory examination (principal); I25.10 Atherosclerotic heart disease of native coronary artery without angina pectoris

== ENCOUNTER 2017-06-28 17:53 | Inpatient (IN) | payer OTHER ==
[~2017-06-28] VITALS: Ht 157.5 cm; Wt 72.0 kg
[~2017-06-28 17:53] MED LIST changes: -ASPI81TA28 PO; -FAMO40TA6 PO; -GLC/500 PO; -NVLGI/PEN PO
[2017-06-28] MEDS ORDERED: ASPIRIN 81 MG CHEW PO STA (18:41)
[2017-06-28] MEDS ORDERED: NITROGLYCERIN 0.4 MG SL PER TAB CHARGE SL PRN ×2 (18:45→20:15)
[2017-06-28] MEDS ORDERED: NVLGI/PEN PO (19:16)
[2017-06-28] MEDS ORDERED: GLC/500 PO (19:16)
[2017-06-28] MEDS ORDERED: ASPI81TA28 PO (19:16)
--- NOTE | 2017-06-28 19:17 | EMERGENCY ROOM VISIT NOTE ---
History Report prepared by Tata: Cabrera Littlejohn Under the Supervision of: Dr. Cali Us M.D. First contact with patient: 18:31 Chief Complaint: CHEST PAIN Stated Complaint: CHEST PAIN, LEFT ARM PAIN, JUST HAD TRIPLE BYPASS Nursing Triage Summary: Patient ambulatory to triage with a steady and upright gait, states "I had a triple bypass surgery the day after '. Since I had the surgery, I have had a pain in my left upper arm on the inside that sends a burning pain across the center of my chest. I used to only get that pain when it was cold. I am now getting it when I am warm and I got it while at cardiac rehab on the treadmill. I am scheduled to have a stress test on Sunday. I was told to come here for worsening symptoms." Patient reports intermittent shortness of breath "in the cold." History of Present Illness The patient is a 52 year old male who presents to the Emergency Room with complaints of intermittent chest pain that began yesterday, while the patient was in cardiac rehabilitation. The patient had a cardiac bypass surgery in April. He was on the treadmill at rehab yesterday when he started to experience a "burning" in his chest. At this time the severity was a 10/10 in severity. He was given a Nitroglycerin which slowly improved his symptoms. His symptoms did resolve completely for sometime. He rates the current severity of this episode as a 5/10 in severity, this current episode started today at 1530, 3 hours ago. He denies any shortness of breath at anytime. The patient had chest pains before the cardiac bypass which caused the need for the surgery. Those prior pains felt very similar to the current episode. He is on Aspirin daily. Source of History: patient Onset: Yesterday Position: chest Symptom Intensity: 10/10 yesterday 5/10 today Quality: burning Timing: intermittent Associated Symptoms: No SOB Review of Systems See HPI for pertinent positives and negatives. A total of ten systems were reviewed and were otherwise negative. Past Medical & Surgical Medical Problems: (1) Diabetes Family History Diabetes mellitus FH: heart disease Hypertension Social History Smoking Status: Never Smoker Alcohol Use: none Marital Status: Housing Status: lives with significant other Occupation Status: employed Current/Historical Medications Scheduled Aspirin (Aspirin Ec), 81 MG PO DAILY Insulin Aspart (Novolog Flexpen), 25 UNITS PO QAM Insulin Aspart (Novolog Flexpen), 15 UNITS SQ QPM Insulin Glargine (Lantus Solostar), 50 UNITS SC QAM Insulin Glargine (Lantus Solostar), 25 UNITS SC QPM Metformin Hcl (Glucophage), 500 MG PO BID Simvastatin (Zocor), 80 MG PO QPM Allergies Coded Allergies: Ibuprofen (Verified Adverse Reaction, Unknown, VOMITING, 06/28/17) Physical Exam Vital Signs Date Time Temp Pulse Resp B/P (MAP) Pulse Ox O2 Delivery O2 Flow Rate FiO2 06/28/17 19:31 64 18 106/43 98 Room Air 06/28/17 18:37 96 Room Air 06/28/17 18:37 59 06/28/17 18:37 96 Room Air 06/28/17 18:04 97 Room Air 06/28/17 18:01 36.6 70 20 137/81 97 Room Air Physical Exam GENERAL: Awake, alert, well-appearing, in no distress HENT: Normocephalic, atraumatic. Oropharynx unremarkable. EYES: Normal conjunctiva. Sclera non-icteric. NECK: Supple. No nuchal rigidity. FROM. No masses. RESPIRATORY: Clear to auscultation. No wheezes. CARDIAC: Normal rate. Normal rhythm. No murmurs. No rubs. Extremities warm and well perfused. Pulses equal. No JVD. GI: Soft, non-distended. No tenderness to palpation. No rebound or guarding. No masses. RECTAL: Deferred. MUSCULOSKELETAL: Atraumatic. Chest examination reveals no tenderness. The back is symmetrical on inspection without obvious abnormality. There is no CVA tenderness to palpation. No joint edema. LOWER EXTREMITIES: Calves are equal size bilaterally and non-tender. No edema. No discoloration. NEURO: Normal sensorium. No sensory or motor deficits noted. SKIN: No rash or jaundice noted. Medical Decision & Procedures ER Provider Diagnostic Interpretation: Radiology results as stated below per my review and radiologist interpretation: CHEST ONE VIEW PORTABLE HISTORY: 52 years-old Male CHEST PAIN acute atypical chest pain COMPARISON: Chest radiograph 04/10/2017 TECHNIQUE: Portable AP view of the chest FINDINGS: Cardiac silhouette is upper limits of normal in size. Prior median sternotomy. Surgical clips project over the left heart border suggesting prior CABG. There is no pneumothorax, pleural effusion, focal airspace consolidation or overt pulmonary edema. Mild right hemidiaphragmatic elevation. Bones appear grossly intact. IMPRESSION: No acute process. The above report was generated using voice recognition software. It may contain grammatical, syntax or spelling errors. Electronically signed by: Bassam Moffett M.D. 06/28/2017 8:02 PM Dictated Date/Time: 06/28/2017 8:01 PM Laboratory Results 06/28/17 18:40 Red Blood Count 4.50, Mean Corpuscular Volume 85.6, Mean Corpuscular Hemoglobin 29.3, Mean Corpuscular Hemoglobin Concent 34.3, Mean Platelet Volume 9.3, Neutrophils (%) (Auto) 64.7, Lymphocytes (%) (Auto) 23.3, Monocytes (%) (Auto) 9.3, Eosinophils (%) (Auto) 1.9, Basophils (%) (Auto) 0.6, Neutrophils # (Auto) 3.42, Lymphocytes # (Auto) 1.23, Monocytes # (Auto) 0.49, Eosinophils # (Auto) 0.10, Basophils # (Auto) 0.03 Test 06/28/17 18:31 06/28/17 18:40 06/28/17 18:44 Creatine Kinase MB Ratio (0-3.0) White Blood Count 5.28 K/uL (4.8-10.8) Red Blood Count 4.50 M/uL (4.7-6.1) Hemoglobin 13.2 g/dL (14.0-18.0) Hematocrit 38.5 % (42-52) Mean Corpuscular Volume 85.6 fL (80-100) Mean Corpuscular Hemoglobin 29.3 pg (25-34) Mean Corpuscular Hemoglobin Concent 34.3 g/dl (32-36) Platelet Count 215 K/uL (130-400) Mean Platelet Volume 9.3 fL (7.4-10.4) Neutrophils (%) (Auto) 64.7 % Lymphocytes (%) (Auto) 23.3 % Monocytes (%) (Auto) 9.3 % Eosinophils (%) (Auto) 1.9 % Basophils (%) (Auto) 0.6 % Neutrophils # (Auto) 3.42 K/uL (1.4-6.5) Lymphocytes # (Auto) 1.23 K/uL (1.2-3.4) Monocytes # (Auto) 0.49 K/uL (0.11-0.59) Eosinophils # (Auto) 0.10 K/uL (0-0.5) Basophils # (Auto) 0.03 K/uL (0-0.2) RDW Standard Deviation 41.6 fL (36.4-46.3) RDW Coefficient of Variation 13.3 % (11.5-14.5) Immature Granulocyte % (Auto) 0.2 % Immature Granulocyte # (Auto) 0.01 K/uL (0.00-0.02) Prothrombin Time 10.0 SECONDS (9.0-12.0) Prothromb Time International Ratio 1.0 (0.9-1.1) Activated Partial Thromboplast Time 23.9 SECONDS (21.0-31.0) Partial Thromboplastin Ratio 0.9 Bedside D-Dimer 424 ng/mlFEU (0-450) Bedside Troponin I < 0.030 ng/ml (0-0.045) Laboratory results reviewed by me Medications Administered Medications (Trade) Dose Ordered Sig/Mari Route Start Time Stop Time Status Last Admin Dose Admin Nitroglycerin (Nitrostat Tab) 0.4 mg Q5M PRN SL 06/28/17 18:45 07/28/17 18:44 06/28/17 18:47 0.4 MG Aspirin (Aspirin Chew) 243 mg NOW STAT PO 06/28/17 18:41 06/28/17 18:43 DC 06/28/17 18:48 243 MG ECG Per My Interpretation Indication: chest pain Rate (beats per minute): 64 Rhythm: normal sinus Findings: T-wave inversion (Anterior), other (No ST elevations, no PVCs, normal intervals) Comparison ECG Date: 03/18/2017 Change: T-waves are new EKG FROM [facility] 04/28/2017: Reveals a NSR with non-specific t-wave abnormalities, prolonged QT, and resolution of ST elevation. ED Course 1832: The patient was evaluated in room C5. A complete history and physical exam was performed. 1840: Ordered Aspirin Chew 243 mg PO. 1844: Ordered Nitroglycerin 0.4 mg SL. 1930: Dr. Cruz is aware of the patient's case at this time. He will evaluate the patient for further management. Medical Decision Triage Nursing notes reviewed. The patient's presentation and history were concerning for chest pain. Etiologies such as cardiac ischemia, aortic dissection, pulmonary embolism, pneumonia, pneumothorax, musculoskeletal, infections, gastrointestinal, as well as others were entertained. The patient was evaluated. Clinically he was doing well but did has some discomfort. He was given sublingual nitroglycerin. The patient was found to have anterior T-wave inversions which were new compared to his old ECG obtained from the [employer] system. Blood work and x-ray imaging were obtained. Chest x -ray negative. The patient had unremarkable CBC. D-dimer negative. Troponin negative. He had significant improvement with one sublingual nitroglycerin. The patient had normal coags. On reassessment he was doing well. His symptoms resolved. Consultation was made with internal medicine for further management. Consults Consulting Physician: Dr. Delgado - [facility] Hospitalist Returned Call: [phone] Dr. Cruz is aware of the patient's case at this time. He will evaluate the patient for further management. Impression Primary Impression: Left sided chest pain Additional Impression: Acute electrocardiogram changes Scribe Attestation The scribe's documentation has been prepared under my direction and personally reviewed by me in its entirety. I confirm that the note above accurately reflects all work, treatment, procedures, and medical decision making performed by me. Departure Information Dispostion Being Evaluated By Hospitalist Otto Howell MD (PCP) Patient Instructions My [facility] Problem Qualifiers
[2017-06-28 19:48] LABS: BASO % 0.6 %; BASO ABS # 0.03 K/uL (0-0.2); EOS % 1.9 %; HEMATOCRIT 38.5 % (42-52); HEMOGLOBIN 13.2 g/dL (14.0-18.0); IG# 0.01 K/uL (0.00-0.02); LYMPH % 23.3 %; LYMPH ABS # 1.23 K/uL (1.2-3.4); MEAN CELL VOLUME 85.6 fL (80-100); MEAN CORPUSCULAR HEMOGLOBIN 29.3 pg (25-34); MEAN CORPUSCULAR HGB CONC 34.3 g/dl (32-36); MEAN PLATELET VOLUME 9.3 fL (7.4-10.4); MONO % 9.3 %; MONO ABS # 0.49 K/uL (0.11-0.59); NEUT % 64.7 %; NEUT ABS # 3.42 K/uL (1.4-6.5); PLATELET COUNT 215 K/uL (130-400); RED CELL DISTRIBUTION WIDTH CV 13.3 % (11.5-14.5); RED CELL DISTRIBUTION WIDTH SD 41.6 fL (36.4-46.3); WHITE BLOOD COUNT 5.28 K/uL (4.8-10.8)
[2017-06-28 19:57] LABS: PTT PATIENT 23.9 SECONDS (21.0-31.0)
--- NOTE | 2017-06-28 20:03 | DIAGNOSTIC IMAGING REPORT ---
CHEST ONE VIEW PORTABLE HISTORY: 52 years-old Male CHEST PAIN acute atypical chest pain COMPARISON: Chest radiograph 04/10/2017 TECHNIQUE: Portable AP view of the chest FINDINGS: Cardiac silhouette is upper limits of normal in size. Prior median sternotomy. Surgical clips project over the left heart border suggesting prior CABG. There is no pneumothorax, pleural effusion, focal airspace consolidation or overt pulmonary edema. Mild right hemidiaphragmatic elevation. Bones appear grossly intact. IMPRESSION: No acute process. The above report was generated using voice recognition software. It may contain grammatical, syntax or spelling errors. Electronically signed by: Bassam Moffett M.D. 06/28/2017 8:02 PM Dictated Date/Time: 06/28/2017 8:01 PM
--- NOTE | 2017-06-28 20:13 | History and Physical ---
History & Physical Date & Time of Service: Jun 28, 2017 at 20:05 Chief Complaint: Chest Pain, Left Arm Pain, Just Had Triple Bypass Primary Care Physician: Otto Lindsay MD History of Present Illness Source: patient, hospital records The patient is a 52 year old male with a past medical history of DM, HLD, and CAD with a triple bypass on April 24 that presents with a 3 hour episode of chest pain. The patient states that the pain started at 3:30 pm, started as a knot in his left arm and then progressed to a burning sensation across his chest with a 6/10 severity. The pain has been ongoing since he has his bypass surgery in April, but was only intermittent, lasting between 15-20 minutes, and was usually incited by cold weather. The pain has now been occurring more frequently and at rest. The patient also describes an episode while on the treadmill at Cardiac rehab where he had a similar pain that was 10/10 severity. Today the patient was walking around his room when the pain began, with no report of increased exertion. The patient denies any shortness of breath with any of the episodes. Past Medical/Surgical History PMH: DM, HLD PSH: Coronary Artery Triple Bypass in April 2017 Family History Diabetes mellitus FH: heart disease Hypertension Social History Smoking Status: Never Smoker Smokeless Tobacco Use: No Alcohol Use: none Drug Use: none Marital Status: Housing status: lives with family Occupational Status: employed Immunizations History of Influenza Vaccine: Yes History of Tetanus Vaccine?: Yes History of Pneumococcal: Unknown History of Hepatitis B Vaccine: Yes Allergies Coded Allergies: Latex (Verified Allergy, Mild, RASH, 06/28/17) Ibuprofen (Verified Adverse Reaction, Unknown, VOMITING, 06/28/17) Home Medications Scheduled Aspirin (Aspirin Ec), 81 MG PO DAILY Atorvastatin (Lipitor), 80 MG PO QPM Docusate Sodium (Docusate Sodium), 1 CAP PO BID Insulin Aspart (Novolog Flexpen), 10 UNITS PO TIDM Insulin Glargine (Basaglar Kwikpen), 30 UNITS PO QPM Metformin Hcl (Glucophage), 500 MG PO BID Metoprolol Tartrate (Lopressor) (Lopressor), 50 MG PO BID Multivitamins/Minerals (Mvi With Minerals), 1 TAB PO DAILY Review of Systems See HPI for pertinent positives and negatives. A total of ten systems were reviewed and were otherwise negative. Physical Exam Vital Signs Date Time Temp Pulse Resp B/P (MAP) Pulse Ox O2 Delivery O2 Flow Rate FiO2 06/28/17 19:31 64 18 106/43 98 Room Air 06/28/17 18:37 96 Room Air 06/28/17 18:37 59 06/28/17 18:37 96 Room Air 06/28/17 18:04 97 Room Air 06/28/17 18:01 36.6 70 20 137/81 97 Room Air General Appearance: WD/WN, no apparent distress Head: normocephalic, atraumatic Eyes: normal inspection, sclerae normal, + pertinent finding (Saccadic eye movement) Respiratory/Chest: chest non-tender, lungs clear, normal breath sounds, + pertinent finding (Incision over midline of the chest from bypass) Cardiovascular: regular rate, rhythm, no edema, no murmur Abdomen/GI: normal bowel sounds, non tender, soft Extremities/Musculoskelatal: no calf tenderness, normal range of motion Neurologic/Psych: alert, normal reflexes, oriented x 3 Diagnostics Laboratory Results Results Past 24 Hours Test 06/28/17 18:31 06/28/17 18:40 06/28/17 18:44 Range/Units Creatine Kinase MB Ratio 0-3.0 White Blood Count 5.28 4.8-10.8 K/uL Red Blood Count 4.50 4.7-6.1 M/uL Hemoglobin 13.2 14.0-18.0 g/dL Hematocrit 38.5 42-52 % Mean Corpuscular Volume 85.6 80-100 fL Mean Corpuscular Hemoglobin 29.3 25-34 pg Mean Corpuscular Hemoglobin Concent 34.3 32-36 g/dl Platelet Count 215 130-400 K/uL Mean Platelet Volume 9.3 7.4-10.4 fL Neutrophils (%) (Auto) 64.7 % Lymphocytes (%) (Auto) 23.3 % Monocytes (%) (Auto) 9.3 % Eosinophils (%) (Auto) 1.9 % Basophils (%) (Auto) 0.6 % Neutrophils # (Auto) 3.42 1.4-6.5 K/uL Lymphocytes # (Auto) 1.23 1.2-3.4 K/uL Monocytes # (Auto) 0.49 0.11-0.59 K/uL Eosinophils # (Auto) 0.10 0-0.5 K/uL Basophils # (Auto) 0.03 0-0.2 K/uL RDW Standard Deviation 41.6 36.4-46.3 fL RDW Coefficient of Variation 13.3 11.5-14.5 % Immature Granulocyte % (Auto) 0.2 % Immature Granulocyte # (Auto) 0.01 0.00-0.02 K/uL Prothrombin Time 10.0 9.0-12.0 SECONDS Prothromb Time International Ratio 1.0 0.9-1.1 Activated Partial Thromboplast Time 23.9 21.0-31.0 SECONDS Partial Thromboplastin Ratio 0.9 Bedside D-Dimer 424 0-450 ng/mlFEU Bedside Troponin I < 0.030 0-0.045 ng/ml Impression Assessment and Plan The patient is a 52 year old male with a past medical history of DM, HLD, and CAD with a CABG triple bypass on April 24 that presents with a 3 hour episode of chest pain Chest Pain s/p CABG --> Differential includes worsening cardiac disease, Dong's Syndrome, Pericarditis - EKG: New T wave inversions on V2-4 compared to EKG prior to CABG - Troponin < 0.015 --> Repeat EKG x 4 q6h - Repeat EKG qAM - Echo - Obervation on Telemetry - Patient scheduled for stress test on Sunday - Follows with [facility] (Has bypass at [place]?) - SL NTG as needed for CP - Differential includes Dong's syndrome --> ESR, CRP Diabetes - Continue home Novolog --> 25 units QAM, 15 units QPM - Continue home Lantus --> 50 unit QAM, 25 unit QPM - Hold home metformin HLD - Continue home Zocor DVT - SCDs Code Status - Full Resuscitation Attending addendum: I have physically seen this patient, have supervised the medical residents activities, and agree with the H&P unless as otherwise noted. Assessment and Plan: Precordial chest pain/status post CABG 04/24/17-- The patient will be admitted to telemetry for serial cardiac enzymes, serial EKG's, cardiac rhythm monitoring and a 2-D echocardiogram with Dopplers. Consult cardiology. Differential as above. Diabetes mellitus-- Continue home insulin as above. Hold metformin. Place on Accu-Cheks before meals and at bedtime. Advanced Directives Existing Advance Directive: No Existing Living Will: No Existing Power of [employer] Handling Plant Operator: No Resuscitation Status Full Code VTE Prophylaxis Will order VTE Prophylaxis: Yes Social Service Consult None Apply Resident Tracking Resident Involvement: Resident Care Provided Care Provided: Adult Hospital Medicine
[2017-06-28 20:14] LABS: ALBUMIN 3.6 gm/dl (3.4-5.0); ALT/SGPT 38 U/L (12-78); BLOOD UREA NITROGEN 9 mg/dl (7-18); CALCIUM 8.8 mg/dl (8.5-10.1); CARBON DIOXIDE 27 mmol/L (21-32); CREATININE 1.03 mg/dl (0.60-1.40); GLUCOSE 271 mg/dl (70-99); LIPASE 147 U/L (73-393); POTASSIUM 3.7 mmol/L (3.5-5.1); SODIUM 136 mmol/L (136-145)
[2017-06-28] MEDS ORDERED: DOCU100C31 PO (20:15)
[2017-06-28] MEDS ORDERED: ATOR-26 PO (20:15)
[2017-06-28] MEDS ORDERED: INSU100I23 PO (20:15)
[2017-06-28] MEDS ORDERED: ONDANSETRON INJ 2 MG/ML 2 ML VIAL IV PRN (20:15)
[2017-06-28] MEDS ORDERED: MULT-513 PO (20:15)
[2017-06-28] MEDS ORDERED: POLYETHYLENE (MIRALAX) 17 GM PACK PO PRN (20:15)
[2017-06-28] MEDS ORDERED: METO50TA16 PO (20:17)
[2017-06-28 20:19] LABS: ALKALINE PHOSPHATASE 93 U/L (45-117); AST/SGOT 16 U/L (15-37); CKMB < 0.5 ng/ml (0.5-3.6); TOTAL PROTEIN 6.8 gm/dl (6.4-8.2)
[2017-06-28] MEDS ORDERED: GLUCAGON FOR INJ 1 MG VIAL SQ PRN (21:00)
[2017-06-28] MEDS ORDERED: GLUCOSE 10 TABS/TUBE PO PRN (21:00)
[2017-06-28] MEDS ORDERED: GLUCOSE 40% GEL 15 GM TUBE PO PRN (21:00)
[2017-06-28] MEDS ORDERED: DEXTROSE 50% 50 ML SYR IV PRN (21:00)
[2017-06-28] MEDS: METOPROLOL TARTRATE 50 MG TAB PO SCH (21:00)
[2017-06-28 21:31] VITALS: BP 127/76; PULSE 58; TEMP 36.6; O2SAT 99; Ht 157.5 cm; Wt 72.0 kg
[2017-06-28 22:04] VITALS: BP 113/72; PULSE 53
[2017-06-28] MEDS: ATORVASTATIN 40 MG TAB PO SCH (22:06)
[2017-06-28] MEDS: INSULIN GLARGINE SOLOSTAR 100 UNITS/ML 3 ML PEN SQ SCH (22:08)
[2017-06-28] MEDS ORDERED: PNEUMOCOCCAL POLYSACCHARIDES 25 MCG/0.5 ML VIAL/SYR IM. ONE (22:15)
[2017-06-28] MEDS ORDERED: IV FLUIDS COMPLETED PRN (22:15)
[2017-06-28] MEDS ORDERED: PNEUMOCOCCAL ADMINISTRATION CHARGE ONE (22:15)
[2017-06-28 23:43] VITALS: BP 124/70; PULSE 57; TEMP 36.6; O2SAT 97
[2017-06-29] VITALS (15 sets, daily range): BP systolic 111–143; BP diastolic 70–83; PULSE 52–74; TEMP 36.3–36.8; O2SAT 96–100
[2017-06-29 07:11] LABS: CHOLESTEROL 100 mg/dl (0-200); LDL CHOLESTEROL CALCULATED 43 mg/dl
[2017-06-29] MEDS: INSULIN ASPART 100 UNITS/ML 3 ML PEN SQ SCH ×3 (07:30→17:26)
[2017-06-29] MEDS: ASPIRIN 81 MG ECTAB PO SCH (07:34)
[2017-06-29] MEDS: METOPROLOL TARTRATE 50 MG TAB PO SCH (07:35)
--- NOTE | 2017-06-29 08:45 | Family Medicine Progress Note ---
Progress Note Date of Service Jun 29, 2017. Subjective Pt evaluation today including: conversation w/ patient Found patient resting comfortably initially, but he quickly got up, sat on the side of the bed, and was easily conversational. Says that his chest "burning" that goes from his left arm across his chest resolved around 9 pm yesterday and has yet to return. Denies any concurrent SOB, N/V, diaphoresis, or other concerns. Says this chest "burning" is the same he's had since before his CABG in April and typically happens when he is outside in the cold. Overall he says he currently feels well and asks when he is going home. No other acute c/ o. Constitutional: No fever, No chills Respiratory: No cough, No shortness of breath Cardiovascular: + edema (left leg s/p CABG), No chest pain (resolved) Abdomen: No pain, No nausea, No vomiting Musculoskeletal: No calf pain Male : No dysuria Medications Current Inpatient Medications Medications (Trade) Dose Ordered Sig/Mari Route Start Time Stop Time Status Last Admin Dose Admin Acetaminophen (Tylenol Tab) 650 mg Q4H PRN PO 06/28/17 20:15 07/28/17 20:14 Ondansetron HCl (Zofran Inj) 4 mg Q6H PRN IV 06/28/17 20:15 07/28/17 20:14 Nitroglycerin (Nitrostat Tab) 0.4 mg UD PRN SL 06/28/17 20:15 07/28/17 20:14 Polyethylene (Miralax Powder Packet) 17 gm DAILY PRN PO 06/28/17 20:15 07/28/17 20:14 Aspirin (Ecotrin Tab) 81 mg DAILY PO 06/29/17 09:00 07/29/17 08:59 06/29/17 07:34 81 MG Atorvastatin Calcium (Lipitor Tab) 80 mg QPM PO 06/28/17 21:00 07/28/17 20:59 06/28/17 22:06 80 MG Insulin Aspart (novoLOG ASPART) 10 units TIDM SQ 06/29/17 07:30 07/29/17 07:59 Insulin Glargine (Lantus Solostar Pen) 30 units QPM SQ 06/28/17 21:00 07/28/17 20:59 06/28/17 22:08 30 UNITS Metoprolol Tartrate (Lopressor Tab) 50 mg BID PO 06/28/17 21:00 07/28/17 20:59 06/29/17 07:35 50 MG Glucose (Glucose 40% Gel) 15-30 GRAMS 15 GRAMS... UD PRN PO 06/28/17 21:00 07/28/17 20:59 Glucose (Glucose Chew Tab) 4-8 Tablets 4 Tabl... UD PRN PO 06/28/17 21:00 07/28/17 20:59 Dextrose (Dextrose 50% 50ML Syringe) 25-50ML OF 50% DW IV FOR... UD PRN IV 06/28/17 21:00 07/28/17 20:59 Glucagon (Glucagon Inj) 1 mg UD PRN SQ 06/28/17 21:00 07/28/17 20:59 Miscellaneous (Iv Fluids Completed) 1 ea PRN PRN N/A 06/28/17 22:15 06/28/18 22:14 Objective Vital Signs Date Time Temp Pulse Resp B/P (MAP) Pulse Ox O2 Delivery O2 Flow Rate FiO2 06/29/17 07:33 36.6 65 18 118/75 (89) 98 06/29/17 04:00 Room Air 06/29/17 03:45 36.8 56 17 121/74 (90) 97 Room Air 06/29/17 00:00 Room Air 06/28/17 23:43 36.6 57 18 124/70 (88) 97 Room Air 06/28/17 22:04 53 113/72 (86) 06/28/17 22:00 Room Air 06/28/17 21:31 36.6 58 18 127/76 99 Room Air 06/28/17 19:31 64 18 106/43 98 Room Air 06/28/17 18:37 96 Room Air 06/28/17 18:37 59 06/28/17 18:37 96 Room Air 06/28/17 18:04 97 Room Air 06/28/17 18:01 36.6 70 20 137/81 97 Room Air Physical Exam Notes: General Appearance: Awake, alert & oriented, very comfortable in general, NAD. CV: +S1S2 RRR, no murmur. No peripheral edema. Pulm: Clear to auscultation throughout. Abdomen: +BS, soft, non-tender, non-distended. Extremities: Left leg 1+ pretibial edema. No right leg edema. Bilateral leg stockings on. No calf tenderness. Moving all extremities naturally and easily. Neuro: No gross neuro deficits. Lines: Right arm PIV. Laboratory Results 06/28/17 18:40 Red Blood Count 4.50, Mean Corpuscular Volume 85.6, Mean Corpuscular Hemoglobin 29.3, Mean Corpuscular Hemoglobin Concent 34.3, Mean Platelet Volume 9.3, Neutrophils (%) (Auto) 64.7, Lymphocytes (%) (Auto) 23.3, Monocytes (%) (Auto) 9.3, Eosinophils (%) (Auto) 1.9, Basophils (%) (Auto) 0.6, Neutrophils # (Auto) 3.42, Lymphocytes # (Auto) 1.23, Monocytes # (Auto) 0.49, Eosinophils # (Auto) 0.10, Basophils # (Auto) 0.03 06/28/17 18:40 Test 06/28/17 18:40 06/28/17 18:44 06/29/17 06:25 06/29/17 06:41 White Blood Count 5.28 K/uL (4.8-10.8) Red Blood Count 4.50 M/uL (4.7-6.1) Hemoglobin 13.2 g/dL (14.0-18.0) Hematocrit 38.5 % (42-52) Mean Corpuscular Volume 85.6 fL (80-100) Mean Corpuscular Hemoglobin 29.3 pg (25-34) Mean Corpuscular Hemoglobin Concent 34.3 g/dl (32-36) Platelet Count 215 K/uL (130-400) Mean Platelet Volume 9.3 fL (7.4-10.4) Neutrophils (%) (Auto) 64.7 % Lymphocytes (%) (Auto) 23.3 % Monocytes (%) (Auto) 9.3 % Eosinophils (%) (Auto) 1.9 % Basophils (%) (Auto) 0.6 % Neutrophils # (Auto) 3.42 K/uL (1.4-6.5) Lymphocytes # (Auto) 1.23 K/uL (1.2-3.4) Monocytes # (Auto) 0.49 K/uL (0.11-0.59) Eosinophils # (Auto) 0.10 K/uL (0-0.5) Basophils # (Auto) 0.03 K/uL (0-0.2) RDW Standard Deviation 41.6 fL (36.4-46.3) RDW Coefficient of Variation 13.3 % (11.5-14.5) Immature Granulocyte % (Auto) 0.2 % Immature Granulocyte # (Auto) 0.01 K/uL (0.00-0.02) Erythrocyte Sedimentation Rate 2 mm/hr (0-14) Prothrombin Time 10.0 SECONDS (9.0-12.0) Prothromb Time International Ratio 1.0 (0.9-1.1) Activated Partial Thromboplast Time 23.9 SECONDS (21.0-31.0) Partial Thromboplastin Ratio 0.9 Anion Gap 7.0 mmol/L (3-11) Est Creatinine Clear Calc Drug Dose 76.9 ml/min Estimated GFR () 97.7 Estimated GFR (Non- 84.3 BUN/Creatinine Ratio 8.7 (10-20) Calcium Level 8.8 mg/dl (8.5-10.1) Total Bilirubin 0.4 mg/dl (0.2-1) Direct Bilirubin < 0.1 mg/dl (0-0.2) Aspartate Amino Transf (AST/SGOT) 16 U/L (15-37) Alanine Aminotransferase (ALT/SGPT) 38 U/L (12-78) Alkaline Phosphatase 93 U/L (45-117) Total Creatine Kinase 79 U/L (39-308) Creatine Kinase MB < 0.5 ng/ml (0.5-3.6) Creatine Kinase MB Ratio (0-3.0) C-Reactive Protein < 0.29 mg/dl (0-0.29) Total Protein 6.8 gm/dl (6.4-8.2) Albumin 3.6 gm/dl (3.4-5.0) Lipase 147 U/L (73-393) Bedside D-Dimer 424 ng/mlFEU (0-450) Bedside Troponin I < 0.030 ng/ml (0-0.045) Troponin I < 0.015 ng/ml (0-0.045) Triglycerides Level 126 mg/dl (0-150) Cholesterol Level 100 mg/dl (0-200) HDL Cholesterol 32 mg/dl LDL Cholesterol, Calculated 43 mg/dl VLDL Cholesterol, Calculated 25 mg/dl Cholesterol/HDL Ratio 3.1 Bedside Glucose 99 mg/dl (70-99) Assessment and Plan 52 yo male admitted on [id number] for ongoing chest pain. PMH: HLD, DM, CAD with a three-vessel CABG on 24Apr2017. Chest pain: Patient presents with similar chest symptoms that he had prior to his CABG in Apr 2017. On this morning's exam, he denied any CP since around 9 pm the prior evening. EKG's noted T wave inversions laterally. TnI x 3 negative. CXR with no acute findings. D dimer negative. 28Jun2017 TTE noted EF 55-60%, normal LVSF, and class I diastolic dysfunction. On ASA 81, Lipitor 80. Has periods of bradycardia, so put metoprolol on hold. - Cardiology consulted. They remained concerned for ongoing ischemia and were planning a repeat cardiac cath for later today. Diabetes Mellitus: Here on novolog and lantus. Monitoring blood sugars. HLD: On lipitor. Code status: Full code. Diet: NPO in case of cardiac procedure. DVT prophy: SCD's for now. PT/OT: Deferred. Disbo: Observation on telemetry. Resident Physician Supervision Note: I interviewed and examined the patient. Discussed with Dr. Charles and agree with findings and plan as documented in the note. Any exceptions or clarifications are listed here: None Patient was intense stable condition but concerns for discomfort and EKG changes after recent CABG surgery prompted cardiology to pursue cardiac catheterization which revealed occlusion of the saphenous vein graft to circumflex artery requiring intervention to his [place] circumflex artery with stent placement for a assured perfusion. Vitals are stable with some mild bradycardia Cardiac exam is bradycardic regular lungs are clear Patient is here with recent revascularization with concern for occlusion which was found out to be affirmed by cardiac catheterization post catheterization medications including Plavix statin and aspirin. The patient's metoprolol been on hold because of bradycardia and pauses with a dropped beat he is as needed metoprolol available if need be. Will have further recognition by cardiology in the morning once we see how quite of a night he may have after his recent stenting Documented By: Brett Batista Resident Tracking Resident Involvement: Resident Care Provided Care Provided: Adult Hospital Medicine (inpatient)
[2017-06-29] MEDS ORDERED: METOPROLOL TARTRATE 1 MG/ML VIAL IV PRN (11:00)
[2017-06-29] MEDS: ACETAMINOPHEN 325 MG TAB PO PRN ×2 (13:14→17:26)
--- NOTE | 2017-06-29 13:15 | ECHOCARDIOGRAM REPORT ---
*NOTICE TO RECEIVING DEMOCRAT AGENCY This information is strictly Confidential and protected under [place] law. [place] law prohibits you from making any further disclosure of this information unless further disclosure is expressly permitted by the written consent of the person to whom it pertains or is authorized by law. A general authorization for the release of medical or other information is not sufficient for this purpose. Hospital accepts no responsibility if the information is made available to any other person, INCLUDING THE PATIENT. Interpretation Summary * Name: DAPHNIE GANDARA III Study Date: 06/29/2017 06:40 AM BP: 121/74 mmHg * Patient Location: [facility] HR: 56 * : 1965 (M/d/yyyy) Gender: Male Height: 62 in * Age: 52 yrs Ethnicity: [place] Weight: 168 lb * Ordering Physician: Ronen Chambers * Referring Physician: Self, Referred * Performed By: Shabnam Neff RDCS * * Reason For Study: Chest Pain * BSA: 1.8 m2 * Normal biventricular systolic function. Normal left ventricular wall motion. * Normal chamber dimensions. * Class 1 left ventricular diastolic dysfunction. * Mild pulmonic regurgitation. * Trace tricuspid regurgitation. * Compared to a resting echocardiogram performed April 10, 2017 the left ventricular systolic function and wall motion are unchanged. Left ventricular diastolic dysfunction persists. Procedure Details * A complete two-dimensional transthoracic echocardiogram was performed (2D, M-mode, Doppler and color flow Doppler). Left Ventricle * The left ventricle is normal in size. * There is normal left ventricular wall thickness. * Ejection Fraction = 55-60%. * Left ventricular systolic function is normal. * A full diastolic examination was done with clinical findings of Class I diastolic dysfunction. * The left ventricular wall motion is normal. Right Ventricle * The right ventricle is normal in size and function. * The right ventricular systolic function is normal as assessed by tricuspid annular plane systolic excursion (TAPSE) (normal >1.5 cm). Atria * The left atrial size is normal. * Right atrial size is normal. * No ASD detected; PFO is not assessed. Mitral Valve * The mitral valve is normal. * There is no mitral valve stenosis. * There is no mitral regurgitation noted. Tricuspid Valve * The tricuspid valve is normal. * There is no tricuspid stenosis. * There is trace tricuspid regurgitation. Aortic Valve * The aortic valve is trileaflet. * The aortic valve opens well. * No aortic regurgitation is present. Pulmonic Valve * The pulmonic valve is not well seen, but is grossly normal. * There is no pulmonic valvular stenosis. * Mild pulmonic valvular regurgitation. Great Vessels * The aortic root is normal size. * Normal inferior vena cava diameter and respiratory variation suggests normal central venous pressure. MMode 2D Measurements and Calculations IVSd 0.90 cm IVSs 1.2 cm LVIDd 4.7 cm LVIDs 2.9 cm LVPWd 0.75 cm LVPWs 1.2 cm IVS/LVPW 1.2 FS 37.8 % EDV(Teich) 103.9 ml ESV(Teich) 33.4 ml EF(Teich) 67.9 % EDV(cubed) 105.9 ml ESV(cubed) 25.5 ml EF(cubed) 75.9 % % IVS thick 33.4 % % LVPW thick 58.6 % LV mass(C)d 129.5 grams LV mass(C)dI 73.0 grams/m\S\2 LV mass(C)s 106.5 grams LV mass(C)sI 60.0 grams/m\S\2 SV(Teich) 70.5 ml SI(Teich) 39.7 ml/m\S\2 SV(cubed) 80.4 ml SI(cubed) 45.3 ml/m\S\2 Ao root diam 2.6 cm Ao root area 5.4 cm\S\2 ACS 1.5 cm LA dimension 3.0 cm LA/Ao 1.1 LVAd ap4 27.3 cm\S\2 LVLd ap4 7.9 cm EDV(MOD-sp4) 82.1 ml EDV(sp4-el) 79.9 ml LVAs ap4 16.4 cm\S\2 LVLs ap4 7.0 cm ESV(MOD-sp4) 35.7 ml ESV(sp4-el) 32.8 ml EF(MOD-sp4) 56.6 % EF(sp4-el) 58.9 % LVAd ap2 22.6 cm\S\2 LVLd ap2 7.9 cm EDV(MOD-sp2) 57.6 ml EDV(sp2-el) 54.5 ml LVAs ap2 12.3 cm\S\2 LVLs ap2 6.4 cm ESV(MOD-sp2) 22.5 ml ESV(sp2-el) 20.1 ml EF(MOD-sp2) 60.9 % EF(sp2-el) 63.2 % LVLd %diff 0.54 % EDV(MOD-bp) 69.1 ml LVLs %diff -90 % ESV(MOD-bp) 29.5 ml EF(MOD-bp) 57.4 % SV(MOD-sp4) 46.5 ml SI(MOD-sp4) 26.2 ml/m\S\2 SV(MOD-sp2) 35.1 ml SI(MOD-sp2) 19.8 ml/m\S\2 SV(MOD-bp) 39.6 ml SI(MOD-bp) 22.3 ml/m\S\2 SV(sp4-el) 47.1 ml SI(sp4-el) 26.5 ml/m\S\2 SV(sp2-el) 34.4 ml SI(sp2-el) 19.4 ml/m\S\2 Doppler Measurements and Calculations MV E max [place] 55.0 cm/sec MV A max [place]imar 57.7 cm/sec MV E/A 0.95 MV dec time 0.32 sec Ao V2 max 113.9 cm/sec Ao max PG 5.2 mmHg Ao max PG (full) 1.8 mmHg LV V1 max PG 3.4 mmHg LV V1 max 91.6 cm/sec PA V2 max 106.1 cm/sec PA max PG 4.5 mmHg PI max [place] 152.7 cm/sec PI max PG 9.3 mmHg PI dec slope 120.2 cm/sec\S\2 PI P1/2t 372.3 msec
[2017-06-29] MEDS ORDERED: SODIUM CHLORIDE 0.9% 1000ML 1,000 ML IV SCH ×2 (13:28→17:15)
[2017-06-29] MEDS ORDERED: DC ALL ANTICOAGULANTS ONE (13:30)
--- NOTE | 2017-06-29 13:55 | Procedure Note ---
Cardiac Cath Report Indication: Consultation for chest pain History: This is a 52-year-old diabetic male patient who at the end of 2016 presented to his primary care physician's office with exertional chest pain. The patient underwent an exercise stress echocardiogram that was markedly abnormal. He was referred to [facility] in [place] where he underwent a cardiac catheterization that revealed severe three-vessel coronary artery disease. He underwent coronary artery bypass surgery in April and was recovering nicely and attending cardiac rehab. Last week he noticed that he had a return of his chest burning with activity. It started when he was walking between buildings at [employer] [facility] in the cold. This week by cardiac rehab he had additional chest discomfort while doing a treadmill exercise. He was admitted and I have been asked to see him in regard to this new onset chest discomfort. Cardiac markers have been negative. His EKG reveals nonspecific changes which may be consistent with post open heart surgery. Allergies: Ibuprofen and latex Reported Home Medications Medications Dose Route/Sig Max Daily Dose Days Date Category Lopressor (Metoprolol Tartrate) 50 Mg Tab 50 Mg PO BID 06/28/17 Reported Lipitor (Atorvastatin Calcium) 80 Mg Tab 80 Mg PO QPM 06/28/17 Reported Docusate Sodium 100 Mg Cap 1 Cap PO BID 7 06/28/17 Reported Mvi With Minerals (Multivitamins/Minerals) Tab 1 Tab PO DAILY 06/28/17 Reported Basaglar Kwikpen (Insulin Glargine) 100 Unit/Ml Inj 30 Units PO QPM 06/28/17 Reported Novolog Flexpen (Insulin Aspart) 100 Units/Ml Inj 10 Units PO TIDM 03/16/17 Reported Aspirin Ec (Aspirin) 81 Mg Tab 81 Mg PO DAILY 03/16/17 Reported Glucophage (Metformin Hcl) 500 Mg Tab 500 Mg PO BID 03/16/17 Reported Past medical history: As outlined above the patient has a history of diabetes. 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 He is a non -smoker. Family medical history: Significant for diabetes General: The patient denies weight change, night sweats, fever, chills. Head: The patient denies headache and prior head trauma. Cardiovascular: The patient denies chest pain or chest discomfort, dyspnea on exertion, palpitations, PND, orthopnea, edema, spontaneous shortness of breath, syncope and near syncope. Pulmonary: The patient denies cough, wheeze, pleurisy, hemoptysis, sputum, and excessive snoring. Gastrointestinal: The patient denies nausea, vomiting, diarrhea, constipation, bloating, hematemesis, hematochezia, and abdominal pain. Skin: The patient denies diaphoresis and rash. Musculoskeletal: The patient denies joint pain, joint swelling, myalgia, back pain, neck pain and prior injuries. Neurological: The patient denies prior stroke and seizures Vital Signs Past 12 Hours Date Time Temp Pulse Resp B/P (MAP) Pulse Ox O2 Delivery O2 Flow Rate FiO2 06/29/17 12:00 Room Air 06/29/17 11:07 36.6 54 18 111/70 (84) 97 06/29/17 08:00 Room Air 06/29/17 07:33 36.6 65 18 118/75 (89) 98 06/29/17 04:00 Room Air 06/29/17 03:45 36.8 56 17 121/74 (90) 97 Room Air General Appearance: Alert and Oriented x3. NAD. Head: Normocephalic Atraumatic. Eyes: PERRLA, EOMI, conjunctiva and sclera clear Neck: Supple. No carotid bruits noted. No JVD. No HJD. Chest: Recent open heart surgery scar Respiratory: Breath sounds clear to auscultation bilaterally. No w/r/r. Cardiovascular: Reg rate and rhythm. S1 and S2 noted. No murmurs, rubs, gallops. PMI non displace. Abdomen: Normal bowel sounds, soft nontender. no abdominal bruits. Extremities: No edema, no clubbing or cyanosis. distal pulses 2/4 bilaterally. Neuro: No focal deficits. Psychiatric: Normal affect. Last 24 Hours Test 06/28/17 18:40 06/28/17 18:44 06/28/17 22:01 06/29/17 00:17 White Blood Count 5.28 K/uL Red Blood Count 4.50 M/uL Hemoglobin 13.2 g/dL Hematocrit 38.5 % Mean Corpuscular Volume 85.6 fL Mean Corpuscular Hemoglobin 29.3 pg Mean Corpuscular Hemoglobin Concent 34.3 g/dl Platelet Count 215 K/uL Mean Platelet Volume 9.3 fL Neutrophils (%) (Auto) 64.7 % Lymphocytes (%) (Auto) 23.3 % Monocytes (%) (Auto) 9.3 % Eosinophils (%) (Auto) 1.9 % Basophils (%) (Auto) 0.6 % Neutrophils # (Auto) 3.42 K/uL Lymphocytes # (Auto) 1.23 K/uL Monocytes # (Auto) 0.49 K/uL Eosinophils # (Auto) 0.10 K/uL Basophils # (Auto) 0.03 K/uL RDW Standard Deviation 41.6 fL RDW Coefficient of Variation 13.3 % Immature Granulocyte % (Auto) 0.2 % Immature Granulocyte # (Auto) 0.01 K/uL Erythrocyte Sedimentation Rate 2 mm/hr Prothrombin Time 10.0 SECONDS Prothromb Time International Ratio 1.0 Activated Partial Thromboplast Time 23.9 SECONDS Partial Thromboplastin Ratio 0.9 Sodium Level 136 mmol/L Potassium Level 3.7 mmol/L Chloride Level 102 mmol/L Carbon Dioxide Level 27 mmol/L Anion Gap 7.0 mmol/L Blood Urea Nitrogen 9 mg/dl Creatinine 1.03 mg/dl Est Creatinine Clear Calc Drug Dose 76.9 ml/min Estimated GFR () 97.7 Estimated GFR (Non- 84.3 BUN/Creatinine Ratio 8.7 Random Glucose 271 mg/dl Calcium Level 8.8 mg/dl Total Bilirubin 0.4 mg/dl Direct Bilirubin < 0.1 mg/dl Aspartate Amino Transf (AST/SGOT) 16 U/L Alanine Aminotransferase (ALT/SGPT) 38 U/L Alkaline Phosphatase 93 U/L Total Creatine Kinase 79 U/L Creatine Kinase MB < 0.5 ng/ml Creatine Kinase MB Ratio C-Reactive Protein < 0.29 mg/dl Total Protein 6.8 gm/dl Albumin 3.6 gm/dl Lipase 147 U/L Bedside D-Dimer 424 ng/mlFEU Bedside Troponin I < 0.030 ng/ml Bedside Glucose 68 mg/dl Troponin I < 0.015 ng/ml Test 06/29/17 06:25 06/29/17 06:41 06/29/17 12:32 Troponin I < 0.015 ng/ml < 0.015 ng/ml Triglycerides Level 126 mg/dl Cholesterol Level 100 mg/dl HDL Cholesterol 32 mg/dl LDL Cholesterol, Calculated 43 mg/dl VLDL Cholesterol, Calculated 25 mg/dl Cholesterol/HDL Ratio 3.1 Bedside Glucose 99 mg/dl Impression: 1. New onset angina 2. Recent coronary artery bypass surgery 3. Diabetes Recommendations: I am concerned that this patient has new onset angina after going through bypass approximately 2 months ago. He has pretty classic symptoms. I would recommend that we proceed with a cardiac catheterization to check the status of his bypass grafts. I explained the risk benefit and intent to the procedure to him including the potential for catheter based intervention such as balloon angioplasty or intracoronary stents. The patient understands and is willing to proceed.
[2017-06-29] MEDS ORDERED: MIDAZOLAM HCL 1 MG/ML 2ML VIAL ONE ×2 (14:50→16:14)
[2017-06-29] MEDS ORDERED: LIDOCAINE HCL 1% 20 ML VIAL ONE (14:50)
[2017-06-29] MEDS ORDERED: HEPARIN SOD (PORCINE) 1000 UNIT/ML 10 ML VIAL ONE ×2 (16:13→16:46)
[2017-06-29] MEDS ORDERED: NITROGLYCERIN/D5W 100MCG/ML 20ML SYR ONE (16:13)
[2017-06-29] MEDS ORDERED: NiCARDipine HCL INJ 2.5 MG/ML 10 ML AMP ONE (16:13)
[2017-06-29] MEDS ORDERED: FENTANYL CITRATE INJ 50 MCG/1 ML 2 ML VIAL ONE (16:14)
--- NOTE | 2017-06-29 16:23 | Pre Sedation Assessment ---
Pre Sedation Assessment General Date of Sedation: Jun 29, 2017. Vital Signs Past 12 Hours Date Time Temp Pulse Resp B/P (MAP) Pulse Ox O2 Delivery O2 Flow Rate FiO2 06/29/17 12:00 Room Air 06/29/17 11:07 36.6 54 18 111/70 (84) 97 06/29/17 08:00 Room Air 06/29/17 07:33 36.6 65 18 118/75 (89) 98 Review Cardiovascular: regular rate, rhythm Lungs: lungs clear Pre-Sedation Airway Assessment Smoking Status: Never Smoker Hx of Sleep Apnea: No Hx of difficult intubation: No Short Thick Neck: No Thyro-mental Distance: > 3 Finger Breadths Oral Cavity: Dentures Mallampati Classification: Class II ASA Classification: Class II NPO Status Date of Last Intake of Fluids: Jun 29, 2017 Time of Last Intake of Fluids: 01:00 Date of Last Intake of Solids: Jun 29, 2017 Time of Last Intake of Solids: 01:00 Procedure Planning Contraindications for Sedation: None Current Medications Reviewed: Yes Notes The planned sedation has been discussed with the patient. Informed Consent was obtained. I have identified the patient, determined the appropriateness of sedation and have assessed the patient immediately prior to the procedure. All medicine(s) and interventions are by my order.
--- NOTE | 2017-06-29 16:32 | Procedure Note ---
Cardiac Cath Report Procedure: 1. Left heart catheterization 2. Coronary angiography 3. Left ventriculogram History: This is a 52-year-old male patient who underwent coronary artery bypass surgery in April. He had been doing well and then had the new onset of angina and was admitted to the hospital. Procedure summary: After informed consent was obtained the patient was taken to the cardiac catheterization lab where he was prepped and draped in the usual manner for right transfemoral approach. Preformed 5 [place] diagnostic catheters were utilized for the coronary angiograms. A 5 [place] pigtail catheter was utilized for the left ventriculogram. Following the procedure the patient underwent coronary intervention. Coronary angiography: Selective injections of the left coronary artery revealed the left main trunk to be patent. The LAD is occluded after the takeoff of the first septal branch. The left circumflex artery has a 60-70% stenosis in its proximal segment giving off large first marginal branch and continuing to a smaller AV groove branch. The proximal and midportion the LAD or diffusely diseased. Selective injections of the right coronary artery revealed to be functionally occluded in its proximal and midsegment. Selective injections of the [place] graft reveal it to be patent with slight narrowing at the anastomotic site but supplying antegrade flow to the LAD. Selective injections to the saphenous vein graft to the right coronary artery revealed to be patent supplying good antegrade flow to the right coronary artery. Selective injections of the saphenous vein graft to left circumflex artery revealed to be occluded in its proximal segment. Left ventriculogram: The left ventricle is of normal size with normal systolic function. The estimated left ventricular ejection fraction 60%. The mitral valve is competent. Aortic root and ascending aorta have normal morphology. The LVEDP is 14. Summary: The patient has an occlusion of the saphenous vein graft to the left circumflex artery. The remaining 2 bypass grafts, [place] to the LAD and saphenous vein graft to the right coronary artery, or patent. There is normal LV function. Recommendations: We will have the films revealed by interventional cardiology for possible stent placement in the [place] left circumflex artery.
--- NOTE | 2017-06-29 16:35 | Cardiac Catheterization ---
Procedure Note Procedure Date Jun 29, 2017. Pre-Procedure Diagnosis Angina AUC Score 9 Post-Procedure Diagnosis Severe CAD, Normal LV Systolic Function, Normal Intracardiac Pressures Procedure(s) Performed Coronary Angiography, Left Heart Cath, LV Angiography, Bypass Graft Angiography Broom Man Dr. Pacheco [employer](s) None Estimated Blood Loss None Medication(s) Versed, Lidocaine 1% Summary of Findings See dictated report Hemodynamics Rest Ao: 108/62 Final Ao: 130/64 LV: 130/14 Recommendations PCI without planned CABG Specimens None Radiation Exposure (mGy) 3293 Contrast (mls) 201 Procedural Complication(s) None Disposition PCU ACC Data Cardiac Status Clinical evaluation leading to the procedure CAD Presntation: Unstable angina Heart Failure: No Cardiogenic Shock w/in 24Hrs: No Cardiac Arrest w/in 24Hrs: No Imaging studies past 6 months: Yes Stress studies past 6 months: No Coronary Anatomy Dominant: Right Left Main (% Stenosis): Normal LAD (% Stenosis): Mid (100%) Circumflex (% Stenosis): Proximal (70%) RCA (% Stenosis): Proximal (100%) Grafts - LAD (%): Normal Grafts - Circumflex (%): Ostial (100%) Grafts - RCA (%): Normal Left Ventricular Angiography EF (%): 60% Diagnostic Status: Urgent Closure Device Percutaneous Entry Location: Femoral
[2017-06-29] MEDS ORDERED: CLOPIDOGREL BISULFATE 300 MG TAB PO ONE (16:55)
--- NOTE | 2017-06-29 17:09 | Post Sedation Assessment ---
Post Sedation Assessment General Date of Sedation Jun 29, 2017. Vital Signs: Vital Signs Past 12 Hours Date Time Temp Pulse Resp B/P (MAP) Pulse Ox O2 Delivery O2 Flow Rate FiO2 06/29/17 16:55 65 18 119/87 (98) 98 Room Air 06/29/17 12:00 Room Air 06/29/17 11:07 36.6 54 18 111/70 (84) 97 06/29/17 08:00 Room Air 06/29/17 07:33 36.6 65 18 118/75 (89) 98 Post Procedure Recovery Score Activity: (2) Moves 4 extremities * Respiration: (2) Deep breath/cough Circulation: (2) +/-20% PreAnes Value Consciousness: (2) Fully Awake Oxygen Saturation: (2) > 92% On Room Air Post Anesthesia Score: 10 Discharge Sedation Level of Care: Fast Track Phase II Post Sedation Plan On clinical assessment, the patient appears to have tolerated the sedation without complications. Patient is recovering as anticipated. Patient will continue to be monitored by nursing and may be discharged when sedation discharge criteria are met per below protocol. Upon Completions of procedure and additional 15 minutes continue every 5 minute vital signs and the P.A.R. score; then discharge to a Phase I or Fast Track to Phase II per the following guidelines: * Discharge Patient to appropriate Phase II area if PAR is 8 or greater or return to pre- procedure baseline. The post - procedure orders will be as directed. * If PAR score is less than 8 or not return to pre-procedure baseline then patient will follow Phase I monitoring till PAR is reached for Phase II. The Phase I may be done in procedure room or may call to secure a Phase I area. * If naloxone or flumazenil are used for reversal, hold in Phase I for an additional 60 -120 minutes before discharge to Phase II. Please call the Sedation Physician to re-evaluate and complete post-note for discharge to Phase II area. Do NOT discharge from procedure sedation or Phase 1 until post- sedation evaluation note is complete by procedure /sedation MD Sedation Discharge Instructions to be given to the patient at discharge to home.
--- NOTE | 2017-06-29 17:19 | Cardiac Catheterization ---
Procedure Note Procedure Date Jun 29, 2017. Pre-Procedure Diagnosis Angina AUC Score 7 Post-Procedure Diagnosis Severe CAD, Successful PCI Procedure(s) Performed Drug Eluting Stent [employer] Estimated Blood Loss 15 Medication(s) Clopidogrel, Fentanyl, Heparin, Nicardipine, Nitroglycerin, Versed, Lidocaine 1% Summary of Findings Indication: Refractory angina post CABG Access: 6Fr right MENTAL HEALTH NURSE PRACTITIONER Catheters: EBU 3.75 Findings: For full details of patient's coronary angiography please see cath report dictated by Dr. Pacheco. Briefly patient found to have an occluded SVG to OM along with 70% proximal circumflex into OM1. Decision made to proceed with PCI to circumflex/OM -- PCI -- Antithrombotic therapy: Heparin, Clopidogrel Procedure: LM cannulated with EBU 3.75 guide BMW wire passed across lesion into distal vessel Circumflex/OM lesion predilated with 2.5 compliant balloon Dilated lesion stented with 2.5 x 18 Xience JAY Post stent residual 50+% stenosis in OM 2nd 2.5 x 18 Xience JAY placed to mid OM Stent post-dilated with 2.75 noncompliant balloon IC vasodilators administered for spasm Post procedure SOO 3 flow, stent well expanded with minimal residual stenosis and no apparent cardiac complications. Arterial Closure: AngioSeal Summary: 1. Successful PCI of proximal circumflex into 1st obtuse marginal with 2 overlapping JAY (2.5 x 18, 2.5 x 18 Xience; post-dilated with 2.75 NC). Recommendations: To PCU for continued monitoring Loaded with Clopidogrel in laboratory administrative director Continue dual-antiplatelet therapy with clopidogrel/ASA for 6 months Continue ASCVD risk factor modification per Dr. Pacheco Hemodynamics Rest Ao: 108/62/81 Final Ao: 82/50/66 LV: 130/14 Recommendations PCI without planned CABG Specimens None Radiation Exposure (mGy) 4935 Contrast (mls) 260 Visi (60 for intervention) Fluids (cc crystalloids) 80 Drains None Anesthesia Moderate Procedural Complication(s) None Disposition PCU ACC Data Cardiac Status Clinical evaluation leading to the procedure CAD Presntation: Unstable angina Anginal Classification: CCS III Heart Failure: No, NYHA Class: CCS I Cardiogenic Shock w/in 24Hrs: No Cardiac Arrest w/in 24Hrs: No Imaging studies past 6 months: Yes Stress studies past 6 months: Yes Stress Echocardiogram: Yes - Positive, Risk/Extent of Ischemia (High) Diagnostic Physician's Name: Migel Pacheco DO Status: Elective Closure Device Percutaneous Entry Location: Femoral Closure Device: Angio-Seal Recommendations: PCI without planned CABG PCI Indication: Unstable Angina, Angina despite med therapy Lesion Segment Name: Circumflex/OM1 Culprit Artery: Yes Stenosis Prior to Rx (%): 70 Chronic Total Occlusion: No IVUS: No FFR: No Pre-Procedure SOO Flow: 3 Previously Treated Lesion: No Lesion Complexity: Non-High/Non-C Lesion Length (mm): 25 Thrombus Present: No Bifurcation Lesion: Yes Guidewire Across Lesion: Yes Guidewire: Stenosis Post-Procedure (%): 0 Post-Procedure SOO Flow: 3 Device(s) Deployed: Yes Intraprocedure Events Significant Dissection: No Perforation: No
[2017-06-29] MEDS: ATORVASTATIN 40 MG TAB PO SCH (21:21)
[2017-06-29] MEDS: INSULIN GLARGINE SOLOSTAR 100 UNITS/ML 3 ML PEN SQ SCH (21:22)
[2017-06-30] VITALS (7 sets, daily range): BP systolic 122–158; BP diastolic 73–82; PULSE 56–79; TEMP 36.6–37; O2SAT 92–98
[2017-06-30 06:39] LABS: BASO % 0.4 %; BASO ABS # 0.02 K/uL (0-0.2); EOS ABS # 0.05 K/uL (0-0.5); IG# 0.01 K/uL (0.00-0.02); LYMPH % 17.1 %; LYMPH ABS # 0.84 K/uL (1.2-3.4); MEAN CORPUSCULAR HEMOGLOBIN 29.4 pg (25-34); MEAN CORPUSCULAR HGB CONC 34.2 g/dl (32-36); MEAN PLATELET VOLUME 8.9 fL (7.4-10.4); MONO % 9.2 %; MONO ABS # 0.45 K/uL (0.11-0.59); NEUT % 72.1 %; NEUT ABS # 3.54 K/uL (1.4-6.5); PLATELET COUNT 187 K/uL (130-400); RED CELL DISTRIBUTION WIDTH CV 13.4 % (11.5-14.5); RED CELL DISTRIBUTION WIDTH SD 42.1 fL (36.4-46.3); WHITE BLOOD COUNT 4.91 K/uL (4.8-10.8)
[2017-06-30 07:20] LABS: CALCIUM 8.4 mg/dl (8.5-10.1); CREATININE 0.92 mg/dl (0.60-1.40); POTASSIUM 3.5 mmol/L (3.5-5.1)
[2017-06-30] MEDS: CLOPIDOGREL BISULFATE 75 MG TAB PO SCH (08:14)
[2017-06-30] MEDS: ASPIRIN 81 MG ECTAB PO SCH (08:15)
[2017-06-30] MEDS: METOPROLOL TARTRATE 25 MG TAB PO SCH ×2 (08:17→20:48)
[2017-06-30] MEDS: INSULIN ASPART 100 UNITS/ML 3 ML PEN SQ SCH ×3 (08:19→17:10)
--- NOTE | 2017-06-30 08:40 | Family Medicine Progress Note ---
Progress Note Date of Service Jun 30, 2017. Subjective Pt evaluation today including: conversation w/ patient Found patient sitting on edge of the bed, eating indian toast. Says he remains chest pain-free since 9 pm on . Denies any SOB, groin pain, or any concerns at all this morning. Constitutional: No fever, No chills Respiratory: No cough, No shortness of breath Cardiovascular: No chest pain Abdomen: No pain, No nausea, No vomiting, No diarrhea Male : No dysuria Medications Current Inpatient Medications Medications (Trade) Dose Ordered Sig/Mari Route Start Time Stop Time Status Last Admin Dose Admin Acetaminophen (Tylenol Tab) 650 mg Q4H PRN PO 06/28/17 20:15 07/28/17 20:14 06/29/17 17:26 650 MG Ondansetron HCl (Zofran Inj) 4 mg Q6H PRN IV 06/28/17 20:15 07/28/17 20:14 Nitroglycerin (Nitrostat Tab) 0.4 mg UD PRN SL 06/28/17 20:15 07/28/17 20:14 Polyethylene (Miralax Powder Packet) 17 gm DAILY PRN PO 06/28/17 20:15 07/28/17 20:14 Aspirin (Ecotrin Tab) 81 mg DAILY PO 06/29/17 09:00 07/29/17 08:59 06/30/17 08:15 81 MG Atorvastatin Calcium (Lipitor Tab) 80 mg QPM PO 06/28/17 21:00 07/28/17 20:59 06/29/17 21:21 80 MG Insulin Aspart (novoLOG ASPART) 10 units TIDM SQ 06/29/17 07:30 07/29/17 07:59 06/30/17 08:19 10 UNITS Insulin Glargine (Lantus Solostar Pen) 30 units QPM SQ 06/28/17 21:00 07/28/17 20:59 06/29/17 21:22 30 UNITS Glucose (Glucose 40% Gel) 15-30 GRAMS 15 GRAMS... UD PRN PO 06/28/17 21:00 07/28/17 20:59 Glucose (Glucose Chew Tab) 4-8 Tablets 4 Tabl... UD PRN PO 06/28/17 21:00 07/28/17 20:59 Dextrose (Dextrose 50% 50ML Syringe) 25-50ML OF 50% DW IV FOR... UD PRN IV 06/28/17 21:00 07/28/17 20:59 Glucagon (Glucagon Inj) 1 mg UD PRN SQ 06/28/17 21:00 07/28/17 20:59 Miscellaneous (Iv Fluids Completed) 1 ea PRN PRN N/A 06/28/17 22:15 06/28/18 22:14 Metoprolol Tartrate (Lopressor Iv) 5 mg Q4 PRN IV 06/29/17 11:00 07/29/17 10:59 Clopidogrel Bisulfate (plAVix TAB) 75 mg QAM PO 06/30/17 09:00 07/30/17 08:59 06/30/17 08:14 75 MG Metoprolol Tartrate (Lopressor Tab) 25 mg BID PO 06/30/17 09:00 07/28/17 20:59 06/30/17 08:17 25 MG Objective Vital Signs Date Time Temp Pulse Resp B/P (MAP) Pulse Ox O2 Delivery O2 Flow Rate FiO2 06/30/17 07:48 37.0 73 18 158/80 (106) 92 06/30/17 04:00 Room Air 06/30/17 03:24 36.6 61 15 122/75 (91) 98 Room Air 06/30/17 00:01 36.8 79 18 128/75 (92) 98 Room Air 06/29/17 23:59 Room Air 06/29/17 23:00 36.6 70 15 117/77 (90) 98 Room Air 06/29/17 22:00 36.8 73 18 122/73 (89) 98 Room Air 06/29/17 21:00 36.8 74 18 126/83 (97) 98 Room Air 06/29/17 20:00 36.7 58 18 123/77 (92) 96 Room Air 06/29/17 20:00 Room Air 06/29/17 19:47 36.3 06/29/17 19:26 59 22 124/77 (93) 98 Room Air 06/29/17 19:00 65 16 132/81 (98) 98 Room Air 06/29/17 18:30 52 14 142/80 (100) 98 Room Air 06/29/17 18:00 55 16 137/77 (97) 97 Room Air 06/29/17 17:45 56 18 143/80 (101) 96 Room Air 06/29/17 17:30 58 16 129/76 (93) 100 Room Air 06/29/17 17:15 36.8 60 19 126/76 (93) 99 Room Air 06/29/17 17:15 Room Air 06/29/17 17:05 65 18 125/87 (100) 98 Room Air 06/29/17 16:55 65 18 119/87 (98) 98 Room Air 06/29/17 12:00 Room Air 06/29/17 11:07 36.6 54 18 111/70 (84) 97 Physical Exam Notes: General Appearance: Awake, alert & oriented, very comfortable in general, NAD. CV: +S1S2 RRR, no murmur. No peripheral edema. Midline sternal CABG scar. Pulm: Clear to auscultation throughout. Abdomen: +BS, soft, non-tender, non-distended. Extremities: Left leg 1+ pretibial edema. No right leg edema. Bilateral compression stockings on. No calf tenderness. Moving all extremities naturally and easily. Right inguinal cath dressing in place, c/d/i. Neuro: No gross neuro deficits. Lines: Right arm PIV. Laboratory Results 06/30/17 06:12 Red Blood Count 4.42, Mean Corpuscular Volume 86.0, Mean Corpuscular Hemoglobin 29.4, Mean Corpuscular Hemoglobin Concent 34.2, Mean Platelet Volume 8.9, Neutrophils (%) (Auto) 72.1, Lymphocytes (%) (Auto) 17.1, Monocytes (%) (Auto) 9.2, Eosinophils (%) (Auto) 1.0, Basophils (%) (Auto) 0.4, Neutrophils # (Auto) 3.54, Lymphocytes # (Auto) 0.84, Monocytes # (Auto) 0.45, Eosinophils # (Auto) 0.05, Basophils # (Auto) 0.02 06/30/17 06:12 Test 06/29/17 16:39 06/29/17 18:42 06/30/17 06:12 06/30/17 06:34 Kaolin Activated Coagulation Time 224 SECONDS (94-140) Troponin I 0.015 ng/ml (0-0.045) White Blood Count 4.91 K/uL (4.8-10.8) Red Blood Count 4.42 M/uL (4.7-6.1) Hemoglobin 13.0 g/dL (14.0-18.0) Hematocrit 38.0 % (42-52) Mean Corpuscular Volume 86.0 fL (80-100) Mean Corpuscular Hemoglobin 29.4 pg (25-34) Mean Corpuscular Hemoglobin Concent 34.2 g/dl (32-36) Platelet Count 187 K/uL (130-400) Mean Platelet Volume 8.9 fL (7.4-10.4) Neutrophils (%) (Auto) 72.1 % Lymphocytes (%) (Auto) 17.1 % Monocytes (%) (Auto) 9.2 % Eosinophils (%) (Auto) 1.0 % Basophils (%) (Auto) 0.4 % Neutrophils # (Auto) 3.54 K/uL (1.4-6.5) Lymphocytes # (Auto) 0.84 K/uL (1.2-3.4) Monocytes # (Auto) 0.45 K/uL (0.11-0.59) Eosinophils # (Auto) 0.05 K/uL (0-0.5) Basophils # (Auto) 0.02 K/uL (0-0.2) RDW Standard Deviation 42.1 fL (36.4-46.3) RDW Coefficient of Variation 13.4 % (11.5-14.5) Immature Granulocyte % (Auto) 0.2 % Immature Granulocyte # (Auto) 0.01 K/uL (0.00-0.02) Anion Gap 6.0 mmol/L (3-11) Est Creatinine Clear Calc Drug Dose 83.8 ml/min Estimated GFR () 112.0 Estimated GFR (Non- 96.6 BUN/Creatinine Ratio 9.5 (10-20) Calcium Level 8.4 mg/dl (8.5-10.1) Magnesium Level 2.1 mg/dl (1.8-2.4) Chemistry Specimen Hemolysis Bedside Glucose 94 mg/dl (70-99) Assessment and Plan 52 yo male admitted on [id number] for ongoing chest pain. PMH: HLD, DM, CAD with a three-vessel CABG on 24Apr2017. Chest pain / CAD: Continues to deny any pain or SOB since 9 pm on . TnI x4 max 0.015. CXR with no acute findings. D dimer negative. 28Jun2017 TTE noted EF 55-60%, normal LVSF, and class I diastolic dysfunction. Went for cath yesterday () and received single JAY to inaja circumflex (see full report). NSR with HR 60's-80's overnight, 80's-110's post-procedure. On ASA 81 , Lipitor 80, Plavix 75, Metoprolol Tartrate 25 BID. Metoprolol lowered due to recent periods of bradycardia. - Planned ASA and plavix for at least six months. Diabetes Mellitus: Here on novolog and lantus. Monitoring blood sugars. HLD: On lipitor. Code status: Full code. Diet: DM2 diet. DVT prophy: SCD's for now. Also ASA and plavix. PT/OT: Deferred. Disbo: Admit to telemetry. Resident Physician Supervision Note: I interviewed and examined the patient. Discussed with Dr. Charles and agree with findings and plan as documented in the note. Any exceptions or clarifications are listed here: None Patient has done well overnight with his drug-eluting stent in his inaja circumflex artery is in no further chest pain but has not yet ambulated in the unit cardiology is asked that he continues to be monitored for an additional day given some EKG changes that were associated with this saphenous vein graft occlusion patient's understanding remains on medications for coronary artery disease and intervention including aspirin Plavix metoprolol lisinopril and a statin Vital signs show temperature 37 pulse 73 respiration rate 18 BP 150/80 his sternotomy is well-healed and nontender his heart appears regular lungs are clear There is a patient with recent coronary artery bypass grafts with 1 graft failure and stenting of his inaja coronary artery with a drug-eluting stent continue on medications as above and also dyspnea secondary risk prevention by monitoring and managing his diabetes Documented By: Brett Batista Resident Tracking Resident Involvement: Resident Care Provided Care Provided: Adult Hospital Medicine (inpatient)
[2017-06-30] MEDS ORDERED: LISINOPRIL 5 MG TAB PO ONE (12:45)
--- NOTE | 2017-06-30 14:40 | Cardiology Follow-Up ---
Subjective Subjective Date of Service: Jun 30, 2017. Pt evaluation today including: conversation w/ patient, conversation w/ family , physical exam, chart review, lab review, review of studies, review of inpatient medication list Additional Details: Pt seen and examined, with at bedside. States that he's been feeling well. No recurrence of chest discomfort overnight but has only been ambulating to bathroom. Denies sob, palpitations, lightheadedness or dizziness. Tele reviewed: sinus rhythm without arrhythmia or significant ectopy. Problem List Medical Problems: (1) Abdominal pain Status: Acute (2) Acute electrocardiogram changes Status: Acute (3) Chest pain Status: Acute (4) Hyperglycemia Status: Acute (5) Left sided chest pain Status: Acute (6) LLQ abdominal pain Status: Acute (7) Tobacco abuse counseling Status: Acute Review of Systems Constitutional: No fever, No chills Respiratory: No see HPI, No cough, No sputum, No wheezing, No shortness of breath, No dyspnea on exertion, No dyspnea at rest, No hemoptysis, No problem reported Cardiac: No see HPI, No chest pain, No orthopnea, No PND, No edema, No claudication, No palpitations, No problem reported Abdomen: No pain, No nausea, No vomiting, No diarrhea Musculoskeletal: No calf pain Male : No dysuria Objective Vital Signs Last Vital Signs Documentation Date Time Temp Pulse Resp B/P (MAP) Pulse Ox O2 Delivery O2 Flow Rate FiO2 06/30/17 12:00 Room Air 06/30/17 11:35 36.6 67 18 146/82 (103) 97 Physical Exam: General Appearance: WD/WN, no apparent distress Eyes: bilateral eyes normal inspection, bilateral eyes PERRL, bilateral eyes EOMI ENT: normal ENT inspection, hearing grossly normal, pharynx normal Neck: supple, no adenopathy, thyroid normal, no JVD, no carotid bruits, trachea midline Respiratory/Chest: chest non-tender, lungs clear, normal breath sounds, no respiratory distress, no accessory muscle use Cardiovascular: regular rate, rhythm, no edema, no JVD, no murmur, + gallop/S4 Abdomen: normal bowel sounds, non tender, soft, no organomegaly Extremities: normal inspection, no pedal edema, no calf tenderness, + pertinent finding (groin soft without significant echymosis or ) Neurologic/Psychiatric: technical document writer II-XII nml as tested, no motor/sensory deficits, alert, normal mood/affect, oriented x 3 Skin: normal color, warm/dry, no rash Lymphatic: no adenopathy Assessment and Plan 1. Unstable angina with subacute vein closure s/p CABG successful PCI to underlying OM disease good result angiographically patient tolerated procedure well already on asa, plavix and metoprolol no symptoms at rest would like to observe overnight for one more night, patient's would also prefer him to remain as an inpatient at this time will ambulate in hallway and follow for recurrence of chest discomfort 2. HTN will start low dose lisinopril given hx of DM2
[2017-06-30] MEDS: ATORVASTATIN 40 MG TAB PO SCH (20:48)
[2017-06-30] MEDS: INSULIN GLARGINE SOLOSTAR 100 UNITS/ML 3 ML PEN SQ SCH (20:49)
[2017-07-01 03:34] VITALS: BP 114/68; PULSE 57; TEMP 36.5; O2SAT 98
[2017-07-01 06:55] LABS: BASO % 0.4 %; BASO ABS # 0.02 K/uL (0-0.2); HEMOGLOBIN 13.3 g/dL (14.0-18.0); LYMPH % 23.8 %; LYMPH ABS # 1.21 K/uL (1.2-3.4); MEAN CELL VOLUME 85.9 fL (80-100); MEAN CORPUSCULAR HEMOGLOBIN 29.3 pg (25-34); MEAN CORPUSCULAR HGB CONC 34.1 g/dl (32-36); MONO % 11.4 %; MONO ABS # 0.58 K/uL (0.11-0.59); NEUT % 62.4 %; NEUT ABS # 3.17 K/uL (1.4-6.5); PLATELET COUNT 186 K/uL (130-400); RED CELL DISTRIBUTION WIDTH CV 13.3 % (11.5-14.5); RED CELL DISTRIBUTION WIDTH SD 41.8 fL (36.4-46.3); WHITE BLOOD COUNT 5.08 K/uL (4.8-10.8)
[2017-07-01 07:23] LABS: CALCIUM 8.4 mg/dl (8.5-10.1); CREATININE 1.08 mg/dl (0.60-1.40); POTASSIUM 3.6 mmol/L (3.5-5.1)
[2017-07-01 07:41] VITALS: BP 112/66; PULSE 74; TEMP 36.8; O2SAT 98
[2017-07-01] MEDS: ASPIRIN 81 MG ECTAB PO SCH (08:23)
[2017-07-01] MEDS: METOPROLOL TARTRATE 25 MG TAB PO SCH (08:23)
[2017-07-01] MEDS: CLOPIDOGREL BISULFATE 75 MG TAB PO SCH (08:23)
[2017-07-01] MEDS: INSULIN ASPART 100 UNITS/ML 3 ML PEN SQ SCH ×2 (08:28→11:52)
[2017-07-01] MEDS ORDERED: LISINOPRIL 5 MG TAB PO SCH (09:00)
[2017-07-01 11:36] VITALS: BP 104/70; PULSE 67; TEMP 36.7; O2SAT 98
[2017-07-01] MEDS ORDERED: LSN5 PO (11:39)
[2017-07-01] MEDS ORDERED: LPR25 PO (11:39)
[2017-07-01] MEDS ORDERED: PLV75 PO (11:39)
--- NOTE | 2017-07-01 11:44 | Discharge Instructions ---
Discharge Instructions Date of Service Jul 01, 2017. Admission Reason for Admission: Burning Chest Pain, S/P Triple Vessel Bypass Discharge Discharge Diagnosis / Problem: Coronary artery disease, stent placement Discharge Goals Goal(s): Decrease discomfort, Improve function, Improve disease control, Learn about illness Activity Recommendations Activity Limitations: per Instructions/Follow-up section . Instructions / Follow-Up Instructions / Follow-Up You were admitted to the hospital for your recent chest pains. The cardiologists evaluated you and placed a stent in one of your coronary (heart) arteries. - You are going home on multiple heart-related medications. Please bring this list of medications with you to your follow up visits with your woodworking machine operator and primary care provider to confirm how long they want you to remain on them. - Even though you were seen here and have been symptom-free, please do still return to the emergency department if you develop any new chest pains, difficulty breathing, or other acute concerns so that you can be re-evaluated quickly. General heart care instructions Home Care: * Take your medications exactly as directed. Don't skip doses. * Remember that recovery after a heart attack takes time. Plan to rest for at lease 4-8 weeks while you recover. Then return to normal activity when your doctor says it's okay. * Ask your doctor about joining a heart rehabilitation program. * Tell your doctor if you are feeling depressed. Feelings of sadness are common after a heart attack, but it is important that you speak to someone if you are feeling overwhelmed by these feelings. * If you are having chest pain, call 911 for an ambulance. Do NOT drive yourself to the hospital. * Ask your family members to learn CPR. * Learn to take your own blood pressure and pulse. Keep a record of your results. Ask your doctor when you should seek emergency medical attention. He or she will tell you which blood pressure reading is dangerous. Lifestyle Changes: * Maintain a healthy weight. Get help to lose any extra pounds. * Cut back on salt. * Limit canned, dried, packaged, and fast foods. * Don't add salt to your food. * Season foods with herbs instead of salt when you cook. * Break the smoking habit. Enroll in a stop-smoking program to improve your chances of success. * Limit fatty foods. * Ask your doctor about having your lipid levels checked regularly. * Build up your activity according to your doctor's recommendation. * Ask your doctor when it's okay to resume sexual activity. * Tell your doctor about any erectile dysfunction (ED) medication you are taking. Some ED medications are not safe if you take certain heart medications. * Try to manage stress. Follow Up: It is important for you to keep your follow up appointments with your medical provider. Current Hospital Diet Patient's current hospital diet: Diabetes Type 2 Diet Discharge Diet Recommended Diet: Diabetes Type 2 Diet Pending Studies Studies pending at discharge: no Laboratory Results Lipid Panel Test 06/29/17 06:25 Range/Units Triglycerides Level 126 0-150 mg/dl Cholesterol Level 100 0-200 mg/dl HDL Cholesterol 32 mg/dl Cholesterol/HDL Ratio 3.1 LDL Cholesterol, Calculated 43 mg/dl Medical Emergencies . Who to Call and When: Medical Emergencies: If at any time you feel your situation is an emergency, please call 911 immediately. Call 911 immediately or go to your nearest Emergency Room if you experience any of the following: Warning Signs and Symptoms of a Heart Attack * Chest pain that is not relieved by medication * Shortness of breath . Non-Emergent Contact Non-Emergency issues call your: Primary Care Provider, Pattern And Chain Maker . AMI Core Measures Reason no ASA as I/P: Treatment provided - N/A Reason no ASA at D/C: Treatment provided - N/A Reason no statin as I/P: Treatment provided - N/A Reason no statin at D/C: Treatment provided - N/A
--- NOTE | 2017-07-01 11:49 | Discharge Summary ---
Discharge Summary Date of Service Jul 01, 2017. Discharge Summary Admission Date: Jun 29, 2017 at 15:53 Discharge Date: Jul 01, 2017 Discharge Disposition: Home Principal Diagnosis: Coronary artery disease s/p stent placement Problems/Secondary Diagnoses: - Diabetes mellitus - Hyperlipidemia Immunizations: Have You Had Influenza Vaccine: Yes History of Tetanus Vaccine?: Yes History of Pneumococcal: Unknown History of Hepatitis B Vaccine: Yes Procedures: 28Jun2017 - CHEST ONE VIEW PORTABLE FINDINGS: Cardiac silhouette is upper limits of normal in size. Prior median sternotomy. Surgical clips project over the left heart border suggesting prior CABG. There is no pneumothorax, pleural effusion, focal airspace consolidation or overt pulmonary edema. Mild right hemidiaphragmatic elevation. Bones appear grossly intact. IMPRESSION: No acute process. Abbreviated Cath report from Findings: For full details of patient's coronary angiography please see cath report dictated by Dr. Pacheco. Briefly patient found to have an occluded SVG to OM along with 70% proximal circumflex into OM1. Decision made to proceed with PCI to circumflex/OM -- PCI -- Antithrombotic therapy: Heparin, Clopidogrel Procedure: LM cannulated with EBU 3.75 guide BMW wire passed across lesion into distal vessel Circumflex/OM lesion predilated with 2.5 compliant balloon Dilated lesion stented with 2.5 x 18 Xience JAY Post stent residual 50+% stenosis in OM 2nd 2.5 x 18 Xience JAY placed to mid OM Stent post-dilated with 2.75 noncompliant balloon IC vasodilators administered for spasm Post procedure SOO 3 flow, stent well expanded with minimal residual stenosis and no apparent cardiac complications. Arterial Closure: AngioSeal Summary: 1. Successful PCI of proximal circumflex into 1st obtuse marginal with 2 overlapping JAY (2.5 x 18, 2.5 x 18 Xience; post-dilated with 2.75 NC). 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 Pacheco Consultations: Cardiology note a/p on 01Jul2017 1. Unstable angina with subacute vein closure s/p CABG successful PCI to underlying OM disease good result angiographically patient tolerated procedure well already on asa, plavix and metoprolol no symptoms at rest would like to observe overnight for one more night, patient's would also prefer him to remain as an inpatient at this time will ambulate in hallway and follow for recurrence of chest discomfort 2. HTN will start low dose lisinopril given hx of DM2 Medication Reconciliation New Medications: Clopidogrel Bisulfate (Clopidogrel) 75 Mg Tab 75 MG PO QAM for 30 Days, #30 TAB 0 Refills Lisinopril (Lisinopril) 5 Mg Tab 5 MG PO QAM for 30 Days, #30 TAB 0 Refills Metoprolol Tartrate (Lopressor) 25 Mg Tab 25 MG PO BID for 30 Days, #60 TAB Continued Medications: Aspirin (Aspirin Ec) 81 Mg Tab 81 MG PO DAILY Atorvastatin (Lipitor) 80 Mg Tab 80 MG PO QPM, TAB Docusate Sodium (Docusate Sodium) 100 Mg Cap 1 CAP PO BID for 7 Days, #14 CAP Insulin Aspart (Novolog Flexpen) 100 Units/Ml Inj 10 UNITS PO TIDM Insulin Glargine (Basaglar Kwikpen) 100 Unit/Ml Inj 30 UNITS PO QPM Metformin Hcl (Glucophage) 500 Mg Tab 500 MG PO BID, TAB Multivitamins/Minerals (Mvi With Minerals) Tab 1 TAB PO DAILY, TAB Discontinued Medications: Metoprolol Tartrate (Lopressor) (Lopressor) 50 Mg Tab 50 MG PO BID, TAB Discharge Exam General Appearance: Awake, alert & oriented, very comfortable in general, NAD. CV: +S1S2 RRR, no murmur. No peripheral edema. Midline sternal CABG scar. [ No reported CP, SOB with suresh ambulation.] Pulm: Clear to auscultation throughout. Abdomen: +BS, soft, non-tender, non-distended. Extremities: Left leg trace pretibial edema. No right leg edema. Bilateral compression stockings on. No calf tenderness. Moving all extremities naturally and easily. Right inguinal cath dressing in place, c/d/i, without noted surrounding bruising. No difficulty with ambulation. Neuro: No gross neuro deficits. Review of Systems: Constitutional: No fever, No chills Respiratory: No cough, No shortness of breath, No dyspnea on exertion Cardiovascular: No chest pain, No orthopnea Abdomen: No pain, No nausea, No vomiting, No diarrhea Neurologic: + weakness, No numbness/tingling Hospital Course HPI at time of admission on Jun 28, 2017 at 20:05 The patient is a 52 year old male with a past medical history of DM, HLD, and CAD with a triple bypass on April 24 that presents with a 3 hour episode of chest pain. The patient states that the pain started at 3:30 pm, started as a knot in his left arm and then progressed to a burning sensation across his chest with a 6/10 severity. The pain has been ongoing since he has his bypass surgery in April, but was only intermittent, lasting between 15-20 minutes, and was usually incited by cold weather. The pain has now been occurring more frequently and at rest. The patient also describes an episode while on the treadmill at Cardiac rehab where he had a similar pain that was 10/10 severity. Today the patient was walking around his room when the pain began, with no report of increased exertion. The patient denies any shortness of breath with any of the episodes. Discharge summary on 01Jul2017 52 yo male admitted on 28Jun2017 for ongoing chest pain. PMH: HLD, DM, CAD with a three-vessel CABG on 24Apr2017. Chest pain / CAD: Continues to deny any pain or SOB since 9 pm on . TnI x4 max 0.015. CXR with no acute findings. D dimer negative. 28Jun2017 TTE noted EF 55-60%, normal LVSF, and class I diastolic dysfunction. Went for cath on and received single JAY to [place] circumflex (see full report). NSR post-procedure. On ASA 81 daily, Lipitor 80 daily, Plavix 75 daily, Metoprolol Tartrate 25 BID, Lisinopril 5 daily. Metoprolol lowered due to recent periods of bradycardia as an inpatient. - Planned ASA and plavix for at least six months. - Recommended close follow-up with PCM and cardiology. Patient says already has f/u appt for next . Diabetes Mellitus: Here on novolog and lantus. Return to prior home medications upon discharge. HLD: On lipitor. Resident Physician Supervision Note: I interviewed and examined the patient. Discussed with Dr. Charles and agree with findings and plan as documented in the note. Any exceptions or clarifications are listed here: None Patient is doing well has no issues with any chest discomfort palpitations shortness of breath his catheterization site is right groin is clean and dry there is no bruits and no pulsatile masses Patient's vital signs are stable 36 8 pulse 74 respiration rate 20 BP 112/66 his post-cath creatinine is 1.08 and his hemoglobin is also stable Patient is discharged home to follow-up with [facility] cardiology clinic maintaining his antiplatelet agent statin beta-shanell and SONIA inhibitor as previously prescribed from his coronary artery bypass surgery and continue after his drug-eluting stent placement in his circumflex artery ([place]) Documented By: Brett Batista Total Time Spent: Greater than 30 minutes This includes examination of the patient, discharge planning, medication reconciliation, and communication with other providers. Discharge Instructions Please refer to the electronic Patient Visit Report (Discharge Instructions) for additional information. Additional Copies To Otto Lindsay MD Resident Tracking Resident Involvement: Resident Care Provided Care Provided: Adult Hospital Medicine (inpatient)
--- NOTE | 2017-07-01 11:59 | Cardiology Follow-Up ---
Subjective Subjective Date of Service: Jul 01, 2017. Pt evaluation today including: conversation w/ patient, physical exam, chart review, lab review, review of studies, review of inpatient medication list Additional Details: Pt seen and examined with at bedside, states that he feels well. No recurrence of chest pain or sob. Ambulating in halls without difficulty. No pain at groin site. Tele reviewed: sinus rhythm without arrhythmia or significant ectopy. Problem List Medical Problems: (1) Abdominal pain Status: Acute (2) Acute electrocardiogram changes Status: Acute (3) Chest pain Status: Acute (4) Hyperglycemia Status: Acute (5) Left sided chest pain Status: Acute (6) LLQ abdominal pain Status: Acute (7) Tobacco abuse counseling Status: Acute Review of Systems Constitutional: No fever, No chills Respiratory: No cough, No shortness of breath Cardiac: No chest pain Abdomen: No pain, No nausea, No vomiting, No diarrhea Musculoskeletal: No calf pain Male : No dysuria Objective Vital Signs Last Vital Signs Documentation Date Time Temp Pulse Resp B/P (MAP) Pulse Ox O2 Delivery O2 Flow Rate FiO2 07/01/17 11:36 36.7 67 20 104/70 (81) 98 07/01/17 08:04 Room Air Physical Exam: General Appearance: WD/WN, no apparent distress Eyes: bilateral eyes normal inspection, bilateral eyes PERRL, bilateral eyes EOMI ENT: normal ENT inspection, hearing grossly normal, pharynx normal Neck: supple, no adenopathy, thyroid normal, no JVD, no carotid bruits, trachea midline Respiratory/Chest: chest non-tender, lungs clear, normal breath sounds, no respiratory distress, no accessory muscle use Cardiovascular: regular rate, rhythm, no edema, no JVD, no murmur, + gallop/S4 Abdomen: normal bowel sounds, non tender, soft, no organomegaly Extremities: normal inspection, no pedal edema, no calf tenderness, + pertinent finding (groin soft without significant echymosis or ) 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 Unstable angina with subacute vein closure s/p CABG successful PCI to underlying OM disease good result angiographically patient tolerated procedure well already on asa, plavix and metoprolol no symptoms with ambulation ok to d/c to home instructed not to return to work for 1 week already has appointment with cardiology on 07/03, will keep can provide with paperwork for job excuse at that visit 2. HTN controlled cont low dose lisinopril given hx of DM2
[2017-07-01 12:02] VITALS: BP 104/70; PULSE 67; TEMP 36.7; O2SAT 98
== END 2017-07-01 12:36 | disposition home or self-care (01) | DRG 247 ==
LOC: C.EDB 17:55 → C.2T 20:33 → ENRESERV 20:42 → OBSVTOIN 06-29 15:53
PROVIDERS: ADMIT Student in an Organized Health Care Education/Training Program; ATTEND Hospitalist
PROC: B215YZZ Fluoroscopy of Left Heart using Other Contrast (ICD-10-PCS; principal; 2017-06-30)
PROC: 4A023N7 Measurement of Cardiac Sampling and Pressure, Left Heart, Percutaneous Approach (ICD-10-PCS; principal; 2017-06-30)
PROC: B211YZZ Fluoroscopy of Multiple Coronary Arteries using Other Contrast (ICD-10-PCS; principal; 2017-06-30)
PROC: 027034Z Dilation of Coronary Artery, One Artery with Drug-eluting Intraluminal Device, Percutaneous Approach (ICD-10-PCS; principal; 2017-06-30)
DX: I25.10 Atherosclerotic heart disease of native coronary artery without angina pectoris (principal); E11.9 Type 2 diabetes mellitus without complications; E78.5 Hyperlipidemia, unspecified; Z79.82 Long term (current) use of aspirin; Z79.4 Long term (current) use of insulin; Z95.1 Presence of aortocoronary bypass graft; Z83.3 Family history of diabetes mellitus; Z82.49 Family history of ischemic heart disease and other diseases of the circulatory system

== ENCOUNTER 2017-09-02 23:32 | Emergency (ER) | payer OTHER ==
[~2017-09-02] VITALS: Ht 154.9 cm; Wt 75.8 kg
[~2017-09-02 23:32] MED LIST changes: +ASPI81TA28 PO; +ATOR-26 PO; +DOCU100C31 PO; +GLC/500 PO; -INSDGIPEN SC; +INSU100I23 SQ; +LPR25 PO; +LSN5 PO; +MULT-513 PO; +NVLGI/PEN PO; -NVLGI/PEN SQ; +PLV75 PO; -SIMV80TA2 PO
[2017-09-02 23:37] VITALS: TEMP 36.3; Ht 154.9 cm; Wt 75.8 kg
[2017-09-02] MEDS ORDERED: ALUMINUM/MAGNESIUM SUSP 30 ML UDC ONE (23:51)
[2017-09-02] MEDS ORDERED: LIDOCAINE HCL 2% VISC SOLN 20 ML UDC ONE (23:51)
[2017-09-02] MEDS ORDERED: RANITIDINE HCL 150 MG TAB PO STA (23:56)
--- NOTE | 2017-09-02 23:56 | EMERGENCY ROOM VISIT NOTE ---
History Report prepared by Tata: Carolyn Cast Under the Supervision of: Dr. Tressa Lindo D.O. First contact with patient: 23:40 Chief Complaint: THROAT PAIN/INJURY Stated Complaint: BURNING SENSATION IN THROAT,NAUSEA History of Present Illness The patient is a 52 year old male who presents to the Emergency Room with complaints of throat pain, nausea and chest discomfort beginning at 1999 tonight. The patient describes the pain as a burning sensation. He reports that he tried taking Maalox and an antacid for his pain. He states that the Maalox relieves his pain but only temporarily. The patient states that he was prescribed the antacid last month by Dr. Lindsay and that he has been taking it every day. Per nursing staff, the patient gets sick at the smell of pizza and smell of other food. He reports feeling nauseous and that he sometimes vomits from the pain, but he denies having chest pain, shortness of breath, diarrhea, and constipation. The patient reports a history of a triple bypass in April. Source of History: patient, nursing staff Onset: 1999 tonight Position: other (throat) Quality: burning Associated Symptoms: + nausea, + vomiting, No chest pain, No SOB, No diarrhea Note: also denies: constipation Review of Systems See HPI for pertinent positives & negatives. A total of 10 systems reviewed and were otherwise negative. Past Medical & Surgical Medical Problems: (1) Burning chest pain (2) Diabetes (3) Hyperlipemia (4) Hypertension Surgical Problems: (1) S/P triple vessel bypass Family History Diabetes mellitus FH: heart disease Hypertension Social History Smoking Status: Never Smoker Alcohol Use: none Drug Use: none Marital Status: Housing Status: lives with significant other Occupation Status: employed Current/Historical Medications Scheduled Antacid (Antacid), 1 DOSE PO DIRECTED Aspirin (Aspirin Ec), 81 MG PO DAILY Atorvastatin (Lipitor), 80 MG PO QPM Clopidogrel (Plavix), 75 MG PO DAILY Insulin Aspart (Novolog Flexpen), 15 UNITS PO TIDM Insulin Glargine (Basaglar Kwikpen), 40 UNITS SQ QPM Lisinopril (Zestril), 5 MG PO DAILY Metformin Hcl (Glucophage), 500 MG PO BID Metoprolol Tartrate (Lopressor) (Lopressor), 25 MG PO BID Multivitamins/Minerals (Mvi With Minerals), 1 TAB PO DAILY Ranitidine Hcl (Zantac), 150 MG PO BID Sennosides-Docusate Sodium (Stool Softener), 2 TABS PO DAILY Allergies Coded Allergies: Latex (Verified Allergy, Mild, RASH, 09/03/17) Ibuprofen (Verified Adverse Reaction, Unknown, VOMITING, 09/03/17) Physical Exam Vital Signs Date Time Temp Pulse Resp B/P (MAP) Pulse Ox O2 Delivery O2 Flow Rate FiO2 09/03/17 01:04 68 20 122/73 99 09/02/17 23:37 36.3 69 20 127/86 98 Room Air Physical Exam HEENT: Head - normocephalic and atraumatic Pupils are equal, round, and reactive to light. Extraocular eye muscles are intact, and sclera are anicteric. Nose - moist nasal mucosa without discharge. Mouth - moist buccal mucosa. Oropharynx is nonerythematous and there is no tonsillar exudate or edema noted. Neck: Supple; no JVD, nuchal rigidity, cervical lymphadenopathy, or auscultated bruits. Heart: Regular rate and rhythm. There is a normal S1 and S2 with no murmurs, clicks, or gallops appreciated. Lungs: Clear to auscultation bilaterally with no wheezes, rales, or rhonchi. Abdomen: Soft. Epigastrium pain at the bottom of sternotomy incision. Nondistended, with good bowel sounds. There are no palpable pulsatile masses or hepatosplenomegaly. There is no guarding, rigidity, or rebound noted. Extremities: No evidence of cyanosis, clubbing, or edema. There are easily palpable peripheral pulses. Skin: warm and dry with good turgor and no rashes. Medical Decision & Procedures Laboratory Results Test 09/03/17 00:05 Total Bilirubin 0.4 mg/dl (0.2-1) Direct Bilirubin < 0.1 mg/dl (0-0.2) Aspartate Amino Transf (AST/SGOT) 14 U/L (15-37) Alanine Aminotransferase (ALT/SGPT) 43 U/L (12-78) Alkaline Phosphatase 97 U/L (45-117) Total Protein 7.0 gm/dl (6.4-8.2) Albumin 3.7 gm/dl (3.4-5.0) Lipase 501 U/L (73-393) Laboratory results per my review. Medications Administered Medications (Trade) Dose Ordered Sig/Mari Route Start Time Stop Time Status Last Admin Dose Admin Lidocaine HCl (Viscous Lidocaine 2% Soln) 20 ml STK-MED ONCE .ROUTE 09/02/17 23:51 09/02/17 23:52 DC 09/02/17 23:54 20 ML Al Hydroxide/Mg Hydroxide (Maalox Susp) 30 ml STK-MED ONCE .ROUTE 09/02/17 23:51 09/02/17 23:52 DC 09/02/17 23:53 30 ML Ranitidine HCl (zANTac IV) 50 mg NOW STAT IV 09/02/17 23:58 09/02/17 23:59 DC 09/03/17 00:13 50 MG Procedure Medications Administered: Maalox Susp Lidocaine HCl Ranitidine HCl IV ED Course 2347: Past medical records reviewed. The patient was evaluated in room C4. A complete history and physical exam was performed. An IV lock was initiated and labs were drawn as above. 2351: Ordered Maalox Susp 30 ml, Lidocaine HCl 20 ml. 2358: Ordered Ranitidine HCl 50 mg IV. 0046: Upon reevaluation, the patient is doing well. I discussed findings and results with him. He verbalized agreement of the treatment plan. He was discharged home. Medical Decision The patient is a 52 year old male who presents to the ED with throat pain. Differential diagnosis includes esophagitis, gastritis, GERD, and acute coronary syndrome. Lab results show: Lipase-501 LFTs are normal This is a 52-year-old male patient presents to the emergency department with discomfort in his throat and chest. His symptoms seem consistent with GERD/ esophagitis. The patient had significant relief of the symptoms with the GI cocktail. He states that when he uses Maalox at home, the symptoms temporarily go away. The patient was prescribed some type of an acid from his PCP but is not sure of the name of it. He states that he has been taking it for 1 month but has not noticed an improvement. I have prescribed Zantac for the patient and presume that he may be taking a PPI. I have asked him to follow-up closely by phone later today with his PCP to determine what the medication is and if the dose can be increased. Otherwise, the patient will require close follow-up with his PCP later this week to have his lipase rechecked. He was told return to the emergency department if he developed worsening discomfort in his throat or chest or if he developed fever and vomiting. Medication Reconcilliation Current Medication List: was personally reviewed by me Blood Pressure Screening Patient's blood pressure: Normal blood pressure Impression Primary Impression: GERD (gastroesophageal reflux disease) Scribe Attestation The scribe's documentation has been prepared under my direction and personally reviewed by me in its entirety. I confirm that the note above accurately reflects all work, treatment, procedures, and medical decision making performed by me. Departure Information Dispostion Home / Self-Care Prescriptions Ranitidine Hcl (ZANTAC) 150 Mg Tab 150 MG PO BID for 15 Days, #30 TAB Prov: Tressa Lindo D.O. 09/03/17 Referrals Otto Lindsay MD (PCP) Forms HOME CARE DOCUMENTATION FORM, IMPORTANT VISIT INFORMATION, WORK / SCHOOL INSTRUCTIONS Patient Instructions GERD, GERD Lifestyle Changes, GERD Meds, [facility], Pancreatitis Additional Instructions Rest. Take zantac - 150mg every 12 hours Follow up with PCP this week for an appointment to have pancreatic enzymes rechecked. Return to the ER immediately for worsening pain, vomiting, fever. Contact PCP tomorrow about your prescribed antacid med Problem Qualifiers Primary Impression: GERD (gastroesophageal reflux disease) Esophagitis presence: with esophagitis Qualified Codes: K21.0 - Gastro- esophageal reflux disease with esophagitis
[2017-09-02] MEDS ORDERED: SENNTAB23 PO (23:57)
[2017-09-02] MEDS ORDERED: METO25TA56 PO (23:58)
[2017-09-02] MEDS ORDERED: RANITIDINE HCL 50 MG/100 ML D5W IV STA (23:58)
[2017-09-02] MEDS ORDERED: CLOP1TAB15 PO (23:59)
[2017-09-03] MEDS ORDERED: LISI-729 PO
[2017-09-03] MEDS ORDERED: ANT PO (00:17)
[2017-09-03 00:39] LABS: ALBUMIN 3.7 gm/dl (3.4-5.0); ALKALINE PHOSPHATASE 97 U/L (45-117); ALT/SGPT 43 U/L (12-78); AST/SGOT 14 U/L (15-37); LIPASE 501 U/L (73-393)
[2017-09-03] MEDS ORDERED: RANI150T3 PO (00:56)
[2017-09-03 01:04] VITALS: BP 122/73; PULSE 68; O2SAT 99
== END 2017-09-03 01:05 | disposition home or self-care (01) ==
LOC: C.EDB 23:33 → C.EDC 09-03 01:05
DX: K21.9 Gastro-esophageal reflux disease without esophagitis (principal); E11.9 Type 2 diabetes mellitus without complications; E78.5 Hyperlipidemia, unspecified; I10 Essential (primary) hypertension; Z95.1 Presence of aortocoronary bypass graft; Z82.49 Family history of ischemic heart disease and other diseases of the circulatory system; Z79.82 Long term (current) use of aspirin; Z79.4 Long term (current) use of insulin; Z79.84 Long term (current) use of oral hypoglycemic drugs; Z79.899 Other long term (current) drug therapy; Z88.6 Allergy status to analgesic agent; Z91.040 Latex allergy status

== ENCOUNTER 2017-09-05 19:41 | Emergency (ER) | payer OTHER ==
[~2017-09-05] VITALS: Ht 157.5 cm; Wt 74.4 kg
[~2017-09-05 19:41] MED LIST changes: +ANT PO; +CLOP1TAB15 PO; -DOCU100C31 PO; +LISI-729 PO; -LPR25 PO; -LSN5 PO; +METO25TA56 PO; -PLV75 PO; +RANI150T3 PO; +SENNTAB23 PO
[2017-09-05 19:44] VITALS: TEMP 36.7; Ht 157.5 cm; Wt 74.4 kg
[2017-09-05] MEDS ORDERED: SODIUM CHLORIDE 0.9% 1000ML 1,000 ML IV STA (19:54)
[2017-09-05] MEDS ORDERED: ONDANSETRON INJ 2 MG/ML 2 ML VIAL IV STA (19:54)
--- NOTE | 2017-09-05 20:06 | EMERGENCY ROOM VISIT NOTE ---
History Report prepared by Tata: Jabari Poole Under the Supervision of: Dr. Allan Medrano D.O. First contact with patient: 19:50 Chief Complaint: FLU LIKE SX Stated Complaint: STOMACH ACHE, THROWING UP, DIARRHEA History of Present Illness The patient is a 52 year old male who presents to the Emergency Room with complaints of constant flu-like symptoms beginning three days ago. The patient complains of nausea, vomiting, abdominal pain, back pain, and diarrhea. He notes that he had two episodes of diarrhea three nights ago but has not had a bowel movement today. He also complains of chronic leg edema due to having a triple bypass four months ago. He denies any CP, SOB, and urinary symptoms. Per , the patient has been having similar symptoms for the past few months. She reports that the patient was seen by his family doctor today who believed that his symptoms were being caused by acid reflux. She states that the patient was last seen in the emergency department three days ago for his flu-like symptoms. Source of History: patient, spouse/significant other () Onset: three days ago Position: other (global) Quality: other (flu-like symptoms) Timing: constant Associated Symptoms: + nausea, + vomiting, + abdominal pain, + back pain, + diarrhea (x2), No chest pain, No SOB, No urinary symptoms Note: The patient also complains of chronic leg edema. Review of Systems See HPI for pertinent positives & negatives. A total of 10 systems reviewed and were otherwise negative. Past Medical & Surgical Medical Problems: (1) Burning chest pain (2) Diabetes (3) Hyperlipemia (4) Hypertension Surgical Problems: (1) S/P triple vessel bypass Family History Diabetes mellitus FH: heart disease Hypertension Social History Smoking Status: Never Smoker Alcohol Use: none Drug Use: none Marital Status: Housing Status: lives with family Occupation Status: employed Current/Historical Medications Scheduled Antacid (Antacid), 1 DOSE PO DIRECTED Aspirin (Aspirin Ec), 81 MG PO DAILY Atorvastatin (Lipitor), 80 MG PO QPM Clopidogrel (Plavix), 75 MG PO DAILY Insulin Aspart (Novolog Flexpen), 15 UNITS PO TIDM Insulin Glargine (Basaglar Kwikpen), 40 UNITS SQ QPM Lisinopril (Zestril), 5 MG PO DAILY Metformin Hcl (Glucophage), 1,000 MG PO BID Metoprolol Tartrate (Lopressor) (Lopressor), 25 MG PO BID Multivitamins/Minerals (Mvi With Minerals), 1 TAB PO DAILY Ranitidine Hcl (Zantac), 150 MG PO BID Sennosides-Docusate Sodium (Stool Softener), 2 TABS PO DAILY Allergies Coded Allergies: Latex (Verified Allergy, Mild, RASH, 09/05/17) Ibuprofen (Verified Adverse Reaction, Unknown, VOMITING, 09/05/17) Physical Exam Vital Signs Date Time Temp Pulse Resp B/P (MAP) Pulse Ox O2 Delivery O2 Flow Rate FiO2 09/05/17 21:49 62 18 106/64 98 Room Air 09/05/17 20:19 96 Room Air 09/05/17 19:44 36.7 74 18 120/81 98 Room Air Physical Exam GENERAL: Patient is awake, alert, and in no acute distress. Patient is resting comfortably and showing no signs of anxiety EYES: The conjunctivae are clear. The pupils are round and reactive. EARS, NOSE, MOUTH AND THROAT: The nose is without any evidence of any deformity. Mucous membranes are moist tongue is midline NECK: The neck is nontender and supple. RESPIRATORY: Normal respiratory effort is noted there is no evidence of wheezing rhonchi or rales CARDIOVASCULAR: Regular rate and rhythm noted there no murmurs rubs or gallops normal S1 normal S2 GASTROINTESTINAL: Abdomen is mildly distended but soft, there is no guarding or rigidity appreciated. MUSCULOSKELETAL/EXTREMITIES: There is no evidence of gross deformity full range of motion is noted in the hips and shoulders SKIN: There is no obvious evidence of any rash. There are no petechiae, pallor or cyanosis noted. NEUROLOGIC: Patient is awake alert and oriented x3 Medical Decision & Procedures ER Provider Diagnostic Interpretation: Radiology results as stated below per my review and radiologist interpretation: CHEST ONE VIEW PORTABLE FINDINGS: The lungs are clear. The heart is normal in size. Poststernotomy changes. No pleural effusions. No pneumothorax. IMPRESSION: No acute process. Electronically signed by: Garret Arceo M.D. 09/05/2017 8:08 PM [address] AND PELVIS CT WITHOUT CONTRAST FINDINGS: There are postoperative changes. Chronic tree-in-bud nodular opacities within the right middle lobe. Linear scarlike density at the left lung base. Stable 6 mm nodule within the left lower lobe on image 36 and a stable 5 mm nodule within the right lower lobe on image 45. No pneumoperitoneum. No pneumatosis. No fractures within the visualized osseous structures. Tiny fat-containing umbilical hernia. Stable 7 mm hypodense lesion within the posterior segment of the right hepatic lobe. This is too small to characterize. The unenhanced gallbladder, spleen, adrenal glands, pancreas, and kidneys are unremarkable. No renal or ureteral stones. No hydronephrosis. Subcentimeter retroperitoneal and mesenteric lymph nodes do not meet CT criteria for pathologic involvement. The bladder is unremarkable. Suboptimal evaluation for bowel pathology due to the lack of intravenous and oral contrast. However, there is no definite bowel wall thickening or obstruction. A few sigmoid diverticula. Moderate stool within the colon. Normal appendix. IMPRESSION: 1. No bowel wall thickening or obstruction. 2. Normal appendix. 3. No change in the chronic bronchiolitis within the right middle lobe. 4. There are a total of 2 subcentimeter indeterminate pulmonary nodules within the lower lobes as described above with the largest measuring 6 mm. Please refer to the chart below for recommended follow-up. Please refer to below summary of Fleischner criteria recommendations for follow-up of incidental CT nodules (Karen Velasquez, Guidelines for management of small pulmonary nodules detected on CT scans: A statement from the Fleischner Society, Radiology 237: [phone].) SOLID NODULES Solitary nodule size: <6 mm * Low risk patients: no follow-up needed * high risk patients: optional CT at 12 months Solitary nodule size: 6-8 mm * Low risk patients: follow-up at 6-12 months, then consider further follow-up at 18-24 months * high risk patients: initial follow-up CT at 6-12 months and then at 18-24 months if no change Solitary nodule size: >8 mm * either low or high risk patients - consider follow-up CT at 3 months, and/or CT-PET, and/or biopsy Multiple nodules size: <6 mm * Low risk patients: no routine follow-up * high risk patients: optional CT at 12 months Multiple nodules size: 6-8 mm * Low risk patients: follow-up at 3-6 months, then consider further follow-up at 18-24 months * high risk patients: follow-up at 3-6 months, then at 18-24 months if no change Multiple nodules size: >8 mm * Low risk patients: follow-up at 3-6 months, then consider further follow-up at 18-24 months * high risk patients: follow-up at 3-6 months, then at 18-24 months if no change Note: newly detected indeterminate nodule in persons 35 years of age or older. * Low risk patients: minimal or absent history of smoking and/or other known risk factors * high risk patients: history of smoking or of other known risk factors (e.g. first degree relative with lung cancer, or exposure to asbestos, radon, uranium) * if a nodule up to 8 mm is partly solid or is ground glass further follow-up is required after 24 months to exclude possible slow growing adenocarcinoma (ADELA) SUBSOLID NODULES Solitary pure ground-glass nodule * nodule size <6 mm - no CT follow-up required * nodule size >=6 mm - follow-up CT at 6-12 months, then every 2 years until 5 years Solitary part-solid nodule * nodule size <6 mm - no CT follow-up required * nodule size >=6 mm - follow-up CT at 3-6 months. If unchanged, and solid component remains <6 mm, then annual follow-up for 5 years Multiple subsolid nodules * nodule size <6 mm - follow-up CT at 3-6 months, consider further follow-up at 2 and 4 years if stable * nodule size >=6 mm - follow-up CT at 3-6 months, subsequent management based on the most suspicious nodule(s) Electronically signed by: Garret Arceo M.D. 09/05/2017 8:46 PM Laboratory Results 09/05/17 19:55 Red Blood Count 4.73, Mean Corpuscular Volume 83.5, Mean Corpuscular Hemoglobin 28.5, Mean Corpuscular Hemoglobin Concent 34.2, Mean Platelet Volume 8.8, Neutrophils (%) (Auto) 63.7, Lymphocytes (%) (Auto) 26.1, Monocytes (%) (Auto) 7.9, Eosinophils (%) (Auto) 1.7, Basophils (%) (Auto) 0.3, Neutrophils # (Auto) 3.85, Lymphocytes # (Auto) 1.58, Monocytes # (Auto) 0.48, Eosinophils # (Auto) 0.10, Basophils # (Auto) 0.02 09/05/17 19:55 Test 5/16/18 19:55 White Blood Count 6.05 K/uL (4.8-10.8) Red Blood Count 4.73 M/uL (4.7-6.1) Hemoglobin 13.5 g/dL (14.0-18.0) Hematocrit 39.5 % (42-52) Mean Corpuscular Volume 83.5 fL (80-100) Mean Corpuscular Hemoglobin 28.5 pg (25-34) Mean Corpuscular Hemoglobin Concent 34.2 g/dl (32-36) Platelet Count 211 K/uL (130-400) Mean Platelet Volume 8.8 fL (7.4-10.4) Neutrophils (%) (Auto) 63.7 % Lymphocytes (%) (Auto) 26.1 % Monocytes (%) (Auto) 7.9 % Eosinophils (%) (Auto) 1.7 % Basophils (%) (Auto) 0.3 % Neutrophils # (Auto) 3.85 K/uL (1.4-6.5) Lymphocytes # (Auto) 1.58 K/uL (1.2-3.4) Monocytes # (Auto) 0.48 K/uL (0.11-0.59) Eosinophils # (Auto) 0.10 K/uL (0-0.5) Basophils # (Auto) 0.02 K/uL (0-0.2) RDW Standard Deviation 40.3 fL (36.4-46.3) RDW Coefficient of Variation 13.3 % (11.5-14.5) Immature Granulocyte % (Auto) 0.3 % Immature Granulocyte # (Auto) 0.02 K/uL (0.00-0.02) Prothrombin Time 9.8 SECONDS (9.0-12.0) Prothromb Time International Ratio 0.9 (0.9-1.1) Activated Partial Thromboplast Time 25.0 SECONDS (21.0-31.0) Partial Thromboplastin Ratio 1.0 Anion Gap 9.0 mmol/L (3-11) Est Creatinine Clear Calc Drug Dose 70.4 ml/min Estimated GFR () 89.3 Estimated GFR (Non- 77.0 BUN/Creatinine Ratio 12.2 (10-20) Calcium Level 8.8 mg/dl (8.5-10.1) Magnesium Level 1.8 mg/dl (1.8-2.4) Total Bilirubin 0.4 mg/dl (0.2-1) Direct Bilirubin 0.1 mg/dl (0-0.2) Aspartate Amino Transf (AST/SGOT) 17 U/L (15-37) Alanine Aminotransferase (ALT/SGPT) 45 U/L (12-78) Alkaline Phosphatase 92 U/L (45-117) Troponin I < 0.015 ng/ml (0-0.045) Total Protein 6.8 gm/dl (6.4-8.2) Albumin 3.9 gm/dl (3.4-5.0) Lipase 143 U/L (73-393) Thyroid Stimulating Hormone (TSH) 1.050 uIu/ml (0.300-4.500) Laboratory results per my review. Medications Administered Medications (Trade) Dose Ordered Sig/Mari Route Start Time Stop Time Status Last Admin Dose Admin Ondansetron HCl (Zofran Inj) 4 mg NOW STAT IV 09/05/17 19:54 09/05/17 19:55 DC 09/05/17 20:10 4 MG Sodium Chloride 1,000 ml @ 999 mls/hr Q1H1M STAT IV 09/05/17 19:54 09/05/17 20:54 DC 09/05/17 20:10 999 MLS/HR Ondansetron HCl (ZOFRAN ODT 4MG Home Pack) 1 homepack UD ONCE PO 09/05/17 21:45 09/05/17 21:46 DC 09/05/17 21:52 1 HOMEPACK ECG Per My Interpretation Indication: nausea Rate (beats per minute): 57 Rhythm: sinus bradycardia Findings: T-wave inversion (Anterior), no ectopy Comparison ECG Date: 06/30/2017 Change: no significant change ED Course 1950: The patient was evaluated in room A12. A complete history and physical examination were performed. 1953: Sodium Chloride 1000ml @ 999 mls/hr IV, Zofran Inj 4mg IV 2144: Ondansetron HCl 1 homepack PO 1944: Upon reevaluation, the patient is stable. I discussed the results and treatment plan with him. He verbalized agreement of the treatment plan. The patient was discharged home. Medical Decision Prior records/ancillary studies reviewed. Triage Nursing notes reviewed. Additional history obtained from the patient's significant other. The patient's history was concerning for abdominal pain. Differential diagnosis: Etiologies such as appendicitis, diverticulitis, PUD, biliary pathology, UTI, pancreatitis, obstruction, mesenteric ischemia, aortic pathology, infections, inflammatory bowel disease, renal colic, as well as others were entertained. The patient is a 52-year-old male who presented to the emergency department for an evaluation of nausea and epigastric abdominal pain. The patient was seen previously for similar complaints. He has had ongoing symptoms for the last few months. He was started on medications for gastritis with only minimal improvement. The patient's physical exam was not consistent with an acute surgical abdomen. I discussed patient's laboratory and radiographic studies with him. He was treated with IV fluids as well as IV anti-medics. On subsequent reevaluation he was somewhat improved. He was encouraged to continue all medications as prescribed and call his primary care physician in the morning. He was also encouraged to discuss the possibility that he may require a sooner follow-up appointment with gastroenterology. He was also encouraged to return the emergency department immediately if symptoms change worsen or the need arises. Medication Reconcilliation Current Medication List: was personally reviewed by me Blood Pressure Screening Patient's blood pressure: Normal blood pressure Blood pressure disposition: Did not require urgent referral Impression Primary Impression: Epigastric abdominal pain Additional Impression: Nausea Scribe Attestation The scribe's documentation has been prepared under my direction and personally reviewed by me in its entirety. I confirm that the note above accurately reflects all work, treatment, procedures, and medical decision making performed by me. Departure Information Dispostion Home / Self-Care Referrals Otto Lindsay MD (PCP) Forms HOME CARE DOCUMENTATION FORM, IMPORTANT VISIT INFORMATION Patient Instructions My [facility] Additional Instructions Continue all medications as prescribed. Call your family doctor in the morning to schedule a follow-up appointment. Follow-up with your helminthology teacher as scheduled. Problem Qualifiers
[2017-09-05 20:08] LABS: BASO % 0.3 %; BASO ABS # 0.02 K/uL (0-0.2); EOS % 1.7 %; HEMATOCRIT 39.5 % (42-52); HEMOGLOBIN 13.5 g/dL (14.0-18.0); IG# 0.02 K/uL (0.00-0.02); LYMPH % 26.1 %; LYMPH ABS # 1.58 K/uL (1.2-3.4); MEAN CELL VOLUME 83.5 fL (80-100); MEAN CORPUSCULAR HEMOGLOBIN 28.5 pg (25-34); MEAN CORPUSCULAR HGB CONC 34.2 g/dl (32-36); MEAN PLATELET VOLUME 8.8 fL (7.4-10.4); MONO % 7.9 %; MONO ABS # 0.48 K/uL (0.11-0.59); NEUT % 63.7 %; NEUT ABS # 3.85 K/uL (1.4-6.5); PLATELET COUNT 211 K/uL (130-400); RED CELL DISTRIBUTION WIDTH CV 13.3 % (11.5-14.5); RED CELL DISTRIBUTION WIDTH SD 40.3 fL (36.4-46.3); WHITE BLOOD COUNT 6.05 K/uL (4.8-10.8)
--- NOTE | 2017-09-05 20:09 | DIAGNOSTIC IMAGING REPORT ---
CHEST ONE VIEW PORTABLE HISTORY: EVALUATE ALTERED MENTAL STATUS/WEAKNESS COMPARISON: Chest 06/28/2017. FINDINGS: The lungs are clear. The heart is normal in size. Poststernotomy changes. No pleural effusions. No pneumothorax. IMPRESSION: No acute process. Electronically signed by: Garret Arceo M.D. 09/05/2017 8:08 PM Dictated Date/Time: 09/05/2017 8:07 PM
[2017-09-05 20:19] VITALS: O2SAT 96
[2017-09-05 20:20] LABS: INR 0.9 (0.9-1.1)
[2017-09-05 20:41] LABS: ALBUMIN 3.9 gm/dl (3.4-5.0); ALKALINE PHOSPHATASE 92 U/L (45-117); ALT/SGPT 45 U/L (12-78); AST/SGOT 17 U/L (15-37); BLOOD UREA NITROGEN 14 mg/dl (7-18); CALCIUM 8.8 mg/dl (8.5-10.1); CARBON DIOXIDE 24 mmol/L (21-32); CREATININE 1.11 mg/dl (0.60-1.40); GLUCOSE 289 mg/dl (70-99); LIPASE 143 U/L (73-393); SODIUM 134 mmol/L (136-145); TOTAL PROTEIN 6.8 gm/dl (6.4-8.2)
--- NOTE | 2017-09-05 20:47 | DIAGNOSTIC IMAGING REPORT ---
ABDOMEN AND PELVIS CT WITHOUT CONTRAST CT DOSE: 407.08 mGy.cm HISTORY: back pain and vomiring TECHNIQUE: Multiaxial CT images of the abdomen and pelvis were performed without contrast. A dose lowering technique was utilized adhering to the principles of ALARA. COMPARISON STUDY: Abdomen and pelvis CT 03/16/2017. FINDINGS: There are postoperative changes. Chronic tree-in-bud nodular opacities within the right middle lobe. Linear scarlike density at the left lung base. Stable 6 mm nodule within the left lower lobe on image 36 and a stable 5 mm nodule within the right lower lobe on image 45. No pneumoperitoneum. No pneumatosis. No fractures within the visualized osseous structures. Tiny fat-containing umbilical hernia. Stable 7 mm hypodense lesion within the posterior segment of the right hepatic lobe. This is too small to characterize. The unenhanced gallbladder, spleen, adrenal glands, pancreas, and kidneys are unremarkable. No renal or ureteral stones. No hydronephrosis. Subcentimeter retroperitoneal and mesenteric lymph nodes do not meet CT criteria for pathologic involvement. The bladder is unremarkable. Suboptimal evaluation for bowel pathology due to the lack of intravenous and oral contrast. However, there is no definite bowel wall thickening or obstruction. A few sigmoid diverticula. Moderate stool within the colon. Normal appendix. IMPRESSION: 1. No bowel wall thickening or obstruction. 2. Normal appendix. 3. No change in the chronic bronchiolitis within the right middle lobe. 4. There are a total of 2 subcentimeter indeterminate pulmonary nodules within the lower lobes as described above with the largest measuring 6 mm. Please refer to the chart below for recommended follow-up. Please refer to below summary of Fleischner criteria recommendations for follow-up of incidental CT nodules (Karen Velasquez, Guidelines for management of small pulmonary nodules detected on CT scans: A statement from the Fleischner Society, Radiology 237: [phone].) SOLID NODULES Solitary nodule size: <6 mm * Low risk patients: no follow-up needed * high risk patients: optional CT at 12 months Solitary nodule size: 6-8 mm * Low risk patients: follow-up at 6-12 months, then consider further follow-up at 18-24 months * high risk patients: initial follow-up CT at 6-12 months and then at 18-24 months if no change Solitary nodule size: >8 mm * either low or high risk patients - consider follow-up CT at 3 months, and/or CT-PET, and/or biopsy Multiple nodules size: <6 mm * Low risk patients: no routine follow-up * high risk patients: optional CT at 12 months Multiple nodules size: 6-8 mm * Low risk patients: follow-up at 3-6 months, then consider further follow-up at 18-24 months * high risk patients: follow-up at 3-6 months, then at 18-24 months if no change Multiple nodules size: >8 mm * Low risk patients: follow-up at 3-6 months, then consider further follow-up at 18-24 months * high risk patients: follow-up at 3-6 months, then at 18-24 months if no change Note: newly detected indeterminate nodule in persons 35 years of age or older. * Low risk patients: minimal or absent history of smoking and/or other known risk factors * high risk patients: history of smoking or of other known risk factors (e.g. first degree relative with lung cancer, or exposure to asbestos, radon, uranium) * if a nodule up to 8 mm is partly solid or is ground glass further follow-up is required after 24 months to exclude possible slow growing adenocarcinoma (ADELA) SUBSOLID NODULES Solitary pure ground-glass nodule * nodule size <6 mm - no CT follow-up required * nodule size >=6 mm - follow-up CT at 6-12 months, then every 2 years until 5 years Solitary part-solid nodule * nodule size <6 mm - no CT follow-up required * nodule size >=6 mm - follow-up CT at 3-6 months. If unchanged, and solid component remains <6 mm, then annual follow-up for 5 years Multiple subsolid nodules * nodule size <6 mm - follow-up CT at 3-6 months, consider further follow-up at 2 and 4 years if stable * nodule size >=6 mm - follow-up CT at 3-6 months, subsequent management based on the most suspicious nodule(s) Electronically signed by: Garret Arceo M.D. 09/05/2017 8:46 PM Dictated Date/Time: 09/05/2017 8:38 PM
[2017-09-05] MEDS ORDERED: ONDANSETRON HOME PACK 4MG OD TAB PO ONE (21:45)
[2017-09-05 21:49] VITALS: BP 106/64; PULSE 62; O2SAT 98
== END 2017-09-05 21:53 | disposition home or self-care (01) ==
LOC: C.EDB 19:41 → C.EDA 21:53
DX: R10.13 Epigastric pain (principal); R11.2 Nausea with vomiting, unspecified; M54.9 Dorsalgia, unspecified; R19.7 Diarrhea, unspecified; Z95.1 Presence of aortocoronary bypass graft; E11.9 Type 2 diabetes mellitus without complications; E78.5 Hyperlipidemia, unspecified; I10 Essential (primary) hypertension; Z83.3 Family history of diabetes mellitus; Z82.49 Family history of ischemic heart disease and other diseases of the circulatory system; Z79.82 Long term (current) use of aspirin; Z79.01 Long term (current) use of anticoagulants; Z79.4 Long term (current) use of insulin; Z79.84 Long term (current) use of oral hypoglycemic drugs; Z79.899 Other long term (current) drug therapy; Z91.040 Latex allergy status; Z88.6 Allergy status to analgesic agent

== ENCOUNTER → 2017-11-29 | Outpatient (CLI) | payer OTHER ==
[~2017-11-29] MED LIST changes: -ANT PO; +DAPA1TAB8 PO; -NVLGI/PEN PO; -RANI150T3 PO; -SENNTAB23 PO
--- NOTE | 2017-11-29 12:10 | DIAGNOSTIC IMAGING REPORT ---
RIGHT FIRST TOE 3 VIEWS HISTORY: R GREAT TOE PAIN COMPARISON: Right first toe 10/11/2017. FINDINGS: There is no fracture or dislocation. No radiographic evidence for osteomyelitis within the right first toe. Mild soft tissue swelling within the first toe. Only seen on the lateral view there appears to be a small focus of gas beneath the nail. No radiopaque foreign bodies. IMPRESSION: 1. No evidence for osteomyelitis within the right first toe. 2. Suggestion of a small focus of gas beneath the nail. Clinical recommended to assess for recent trauma or possibly infection. Electronically signed by: Garret Arceo M.D. 11/29/2017 12:09 PM Dictated Date/Time: 11/29/2017 12:07 PM
== END | disposition home or self-care (01) ==
LOC: C.RAD1850 10:44
PROVIDERS: ATTEND Family Medicine
DX: L03.031 Cellulitis of right toe (principal); E11.65 Type 2 diabetes mellitus with hyperglycemia

== ENCOUNTER 2021-03-24 05:07 | Observation (INO) ==
[2021-03-24 05:31] LABS: Basophils # (auto) 0.02 K/uL (0-0.2); Basophils % (auto) 0.3 %; Eosinophils # (auto) 0.12 K/uL (0-0.5); Eosinophils % (auto) 1.8 %; Hemoglobin 15.6 g/dL (14.0-18.0); Immature Granulocytes # (auto) 0.01 K/uL (0.00-0.02); Immature Granulocytes % (auto) 0.2 %; Lymphocytes # (auto) 1.33 K/uL (1.2-3.4); Lymphocytes % (auto) 20.1 %; Mean Corpuscular Hgb Conc 33.2 g/dL (32-36); Mean Corpuscular Volume 93.4 fL (80-100); Mean Platelet Volume 9.2 fL (7.4-10.4); Monocytes # (auto) 0.65 K/uL (0.11-0.59); Monocytes % (auto) 9.8 %; Neutrophils # (auto) 4.48 K/uL (1.4-6.5); Neutrophils % (auto) 67.8 %; Platelet Count 244 K/uL (130-400); RDW Coefficient of Variation 12.9 % (11.5-14.5); RDW Standard Deviation 44.3 fL (36.4-46.3); Red Blood Count 5.03 M/uL (4.7-6.1); White Blood Count 6.61 K/uL (4.8-10.8)
[2021-03-24 05:42] LABS: Alanine Aminotransferase 45 U/L (12-78); Albumin Level 4.2 gm/dl (3.4-5.0); Aspartate Aminotransferase 18 U/L (15-37); BUN Creatinine Ratio 19.6 (10-20); Blood Urea Nitrogen 23 mg/dl (7-18); Calcium 9.6 mg/dl (8.5-10.1); Carbon Dioxide 27 mmol/L (21-32); Chloride 108 mmol/L (98-107); Creatinine Clr Calc Pharmacy 106.1 ml/min; Est GFR (African American) 81.4 ml/min; Est GFR (Non-African American) 70.3 ml/min; Glucose 153 mg/dl (70-99); Lipase 176 U/L (73-393); Sodium 139 mmol/L (136-145)
[2021-03-24 05:47] LABS: Albumin Globulin Ratio 1.2 (0.9-2); Alkaline Phosphatase 78 U/L (45-117); Bilirubin,Total 0.5 mg/dl (0.2-1); Globulin 3.5 gm/dl (2.5-4.0); Total Protein 7.7 gm/dl (6.4-8.2); Troponin I < 0.015 ng/ml (0-0.045)
[2021-03-24] MEDS ORDERED: NITROGLYCERIN SL 0.4 MG/TAB TAB SL STA (05:49)
--- NOTE | 2021-03-24 08:26 | XRay Report ---
XR chest 1V portable HISTORY: Atypical Chest Pain COMPARISON: None. FINDINGS: The lungs are clear. The heart is normal in size. No pleural effusions. No pneumothorax. Th ere are poststernotomy changes. IMPRESSION: No acute process. ACT 112: Negative or not required by law. Electronically signed by: Garret Arceo M.D. 03/24/2021 8:25 AM
--- NOTE | 2021-03-24 10:14 | Cardiology Consultation ---
Date of Consultation March 24, 2021 Assessment & Plan (1) Coronary artery disease: (2) S/P triple vessel bypass: (3) Diabetes mellitus with insulin therapy: (4) Chest pain: Although the patient's cardiac markers are negative and his EKG shows no acute changes he does have a significant history of early coronary artery disease. Following his coronary artery bypass surgery 3 years ago he soon after returned with one of his grafts closed and he received a stent in the circumflex artery. I am concerned that his symptoms are new onset angina and I think the best way to evaluate him is to repeat a cardiac catheterization. I have explained the risk, benefit and intent to the procedure to him and he is willing to proceed. Unless the patient's clinical status changes we will plan on performing the cardiac catheterization in the morning. History of Present Illness History of Present Illness This is a 56-year-old male patient diabetic who in 2018 underwent coronary artery bypass surgery receiving a LEARY to the LAD and saphenous vein graft to the OM from the circumflex artery and a saphenous vein graft to the right coronary artery. Later that year the patient underwent a repeat cardiac catheterization because of exertional angina and was found to have the SVG to OM to be occluded. He received a drug-eluting stent within the port lions left circumflex artery. The patient usually follows with Dr. Newton and following the stent the patient has done well for several years. The patient yesterday was at work when he had the sudden onset of chest heaviness radiating discomfort into his left arm. It lasted for several minutes and then spontaneously resolved. He had the same discomfort this morning however, a little worse and he decided to present to the emergency department. After arrival there he has been pain-free. His cardiac markers are negative and his EKG is within normal limits. Allergies Allergy/AdvReac Type Severity Reaction Status Date / Time latex Allergy Mild RASH Verified 02/21/21 14:52 amoxicillin AdvReac Intermediate Rash Unverified 03/24/21 13:26 ibuprofen AdvReac Mild VOMITING Verified 03/24/21 13:26 Home Medications Medication Instructions Recorded Confirmed Type atorvastatin 80 mg tablet 80 mg PO HS 01/15/18 03/24/21 History clopidogrel 75 mg tablet 75 mg PO QAM 01/15/18 03/24/21 History dapagliflozin 10 mg tablet 10 mg PO QAM 01/15/18 03/24/21 History (Farxiga) lisinopril 5 mg tablet 5 mg PO QAM 01/15/18 03/24/21 History metoprolol tartrate 25 mg tablet 25 mg PO BID 01/15/18 03/24/21 History multivitamin (Multiple Vitamins) 1 tab PO QAM 01/15/18 03/24/21 History metformin 500 mg tablet,extended 1,000 mg PO BID 11/06/18 03/24/21 History release 24 hr pantoprazole 20 mg tablet,delayed 20 mg PO QAM 11/06/18 03/24/21 History release lancets (Accu-Chek Softclix #100 ea 01/12/20 02/21/21 History Lancets) pen needle, diabetic 31 gauge x #50 ea 01/12/20 02/21/21 History 3/16" (Comfort EZ Pen [place]) insulin glargine 100 unit/mL (3 15 unit SUBCUT HS ml 05/06/20 03/24/21 History mL) subcutaneous pen (Basaglar KwikPen U-100 Insulin) blood sugar diagnostic (Accu-Chek #10 ea 07/15/20 02/21/21 History Guide test strips) flash glucose scanning reader #1 ea 07/15/20 02/21/21 Rx (FreeStyle Violet 2 [place]) flash glucose sensor (FreeStyle #2 ea 08/23/20 02/21/21 Rx Violet 2 Sensor) insulin aspart U-100 100 unit/mL 0 unit SUBCUT TID ml 02/21/21 03/24/21 History (3 mL) subcutaneous pen (Novolog Flexpen U-100 Insulin aspart) aspirin 81 mg tablet,delayed 81 mg PO DAILY 03/24/21 03/24/21 History release cyanocobalamin (vitamin B-12) 100 100 mcg PO DAILY 03/24/21 03/24/21 History mcg tablet (Vitamin B-12) Patient History Medical History Coronary artery disease Diabetes Diabetes mellitus with insulin therapy GERD (gastroesophageal reflux disease) Hyperlipemia Hypertension T2DM (type 2 diabetes mellitus) Uncontrolled type 2 diabetes mellitus Surgical History History of heart artery stent S/P triple vessel bypass Family History Mother T2DM (type 2 diabetes mellitus) Grandmother (Maternal) T2DM (type 2 diabetes mellitus) Father Heart disease Kidney disease Hypertension Other Diabetes Social History Smoking Status: Never smoker Hx Alcohol Use: Yes Hx Substance Use: No Preferred Language: Bahamian Communication Ability: Effective 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 All other 10 point review of systems are negative. Physical Exam Physical Exam: General: no acute distress and stated age Head: normocephalic, no masses, lesions, tenderness or abnormalities Eyes: conjunctiva are pink and non-injected, sclera clear Neck: supple, no adenopathy, no bruits, normal jugular venous pulse, no hepatojugular reflux Chest: normal shape and normal respiratory effort Lungs: clear to auscultation and percussion Cardiac Exam: - regular rate & rhythm, no murmurs gallops or rubs - normal S1, normal S2 Pulses: 2(+) throughout Abdomen: abdomen soft, non-tender, no abnormal masses and no hepatosplenomegaly Musculoskeletal: no gait disturbance, no joint inflammation, no deforming arthritis Extremities: no edema and no cyanosis Neuro: grossly normal exam Results & Data ([facility]) Vital Signs (Past 12 Hours) Vital Signs Temp Pulse Pulse Resp BP BP Pulse Ox 03/24/21 09:00 59 L 21 117/78 96 03/24/21 08:00 53 L 20 95/53 L 96 03/24/21 07:30 58 L 16 110/62 98 03/24/21 07:00 56 L 13 106/61 98 03/24/21 06:30 58 L 19 101/63 95 03/24/21 06:00 64 20 98/60 L 94 03/24/21 05:52 98 03/24/21 05:30 70 18 121/65 94 03/24/21 05:15 96 03/24/21 05:13 36.6 C 75 20 113/75 97 Laboratory Results Laboratory Results - last 24 hr 03/24/21 03/24/21 03/24/21 05:00 05:00 08:55 WBC 6.61 RBC 5.03 Hgb 15.6 Hct 47.0 MCV 93.4 MCH 31.0 MCHC 33.2 RDW Std Deviation 44.3 RDW Coeff of Sudhakar 12.9 Plt Count 244 MPV 9.2 Immature Gran % (Auto) 0.2 Neut % (Auto) 67.8 Lymph % (Auto) 20.1 Campbell % (Auto) 9.8 Eos % (Auto) 1.8 Baso % (Auto) 0.3 Neut # (Auto) 4.48 Lymph # (Auto) 1.33 Campbell # (Auto) 0.65 H Eos # (Auto) 0.12 Baso # (Auto) 0.02 Immature Gran # (Auto) 0.01 Sodium 139 Potassium 4.0 Chloride 108 H Carbon Dioxide 27 Anion Gap 4.0 BUN 23 H Creatinine 1.17 Est Cr Clr Drug Dosing 106.1 Est GFR ( Amer) 81.4 Est GFR (Non-Af Amer) 70.3 BUN/Creatinine Ratio 19.6 Glucose 153 H Calcium 9.6 Total Bilirubin 0.5 AST 18 ALT 45 Alkaline Phosphatase 78 Troponin I < 0.015 Total Protein 7.7 Albumin 4.2 Globulin 3.5 Albumin/Globulin Ratio 1.2 Lipase 176 SARS-CoV-2, RNA, NAAT NEGATIVE 03/24/21 10:43 WBC RBC Hgb Hct MCV MCH MCHC RDW Std Deviation RDW Coeff of Sudhakar Plt Count MPV Immature Gran % (Auto) Neut % (Auto) Lymph % (Auto) Campbell % (Auto) Eos % (Auto) Baso % (Auto) Neut # (Auto) Lymph # (Auto) Campbell # (Auto) Eos # (Auto) Baso # (Auto) Immature Gran # (Auto) Sodium Potassium Chloride Carbon Dioxide Anion Gap BUN Creatinine Est Cr Clr Drug Dosing Est GFR ( Amer) Est GFR (Non-Af Amer) BUN/Creatinine Ratio Glucose Calcium Total Bilirubin AST ALT Alkaline Phosphatase Troponin I < 0.015 Total Protein Albumin Globulin Albumin/Globulin Ratio Lipase SARS-CoV-2, RNA, NAAT
--- NOTE | 2021-03-24 10:18 | History & Physical Report ---
Date of Service March 24, 2021 Assessment & Plan (1) Coronary artery disease: Plan: Patient with CABG including SAPPHIRE with exertional chest pain. He is an insulin requiring diabetic likely having high pretest probability. He is not a smoker so that is something in his favor. We will check an additional troponin at 11AM cardiology be consulted to determine if he should have a catheterization versus stress test versus further observation. Patient will be on telemetry bed. I did order an echocardiogram at this time. He continues on aspirin Plavix metoprolol lisinopril and atorvastatin. He is kept n.p.o. (2) Diabetes mellitus with insulin therapy: Plan: Patient be on insulin sliding scale plus basal dose he will have Metformin held (3) Hypertension: Plan: Blood pressures controlled on multiple agents which are can continue at this time (4) Hyperlipemia: Plan: Is on max dose high potency atorvastatin (5) GERD (gastroesophageal reflux disease): Plan: Continues on pantoprazole History of Present Illness Primary Care Provider: Roger Lindsay MD 56-year-old male underwent three-vessel CABG in 2018 1 being a LEARY who shortly after his CABG represented to [facility] and had a stent placed in what sounds like an obtuse marginal of circumflex artery.. Patient has been doing well following with [facility] but over the last 2 days he had exertional chest pain. He describes this as someone sitting on his chest. 1 day prior to presentation it was intermittent throughout the day but would resolve with rest. This morning when walking to his job at [employer] the pain was significant associated with left arm numbness and tingling and required the patient to sit and rest. The patient states his chest pain continued until EMS gave him nitroglycerin now is since been pain-free. Initial troponins unremarkable and initial EKG is without acute current of injury. The patient is an insulin requiring diabetic denies any of his recent medications being changed said no upper respiratory symptoms or cold symptoms and is Covid negative in the ER. I did text messaged cardiology on-call for [facility] who will evaluate the patient and consider for diagnostic catheterization versus were stratification by other means Allergies Allergy/AdvReac Type Severity Reaction Status Date / Time latex Allergy Mild RASH Verified 02/21/21 14:52 amoxicillin AdvReac Unknown Rash Unverified 03/24/21 07:50 ibuprofen AdvReac Unknown VOMITING Verified 02/21/21 14:52 Home Medications Medication Instructions Recorded Confirmed Type atorvastatin 80 mg tablet 80 mg PO HS 01/15/18 03/24/21 History clopidogrel 75 mg tablet 75 mg PO QAM 01/15/18 03/24/21 History dapagliflozin 10 mg tablet 10 mg PO QAM 01/15/18 03/24/21 History ([facility]) lisinopril 5 mg tablet 5 mg PO QAM 01/15/18 03/24/21 History metoprolol tartrate 25 mg tablet 25 mg PO BID 01/15/18 03/24/21 History multivitamin (Multiple Vitamins) 1 tab PO QAM 01/15/18 03/24/21 History metformin 500 mg tablet,extended 1,000 mg PO BID 11/06/18 03/24/21 History release 24 hr pantoprazole 20 mg tablet,delayed 20 mg PO QAM 11/06/18 03/24/21 History release lancets (Accu-Chek Softclix #100 ea 01/12/20 02/21/21 History Lancets) pen needle, diabetic 31 gauge x #50 ea 01/12/20 02/21/21 History 3/16" (Comfort EZ Pen [place]) insulin glargine 100 unit/mL (3 15 unit SUBCUT HS ml 05/06/20 03/24/21 History mL) subcutaneous pen (Basaglar KwikPen U-100 Insulin) blood sugar diagnostic (Accu-Chek #10 ea 07/15/20 02/21/21 History Guide test strips) flash glucose scanning reader #1 ea 07/15/20 02/21/21 Rx (FreeStyle Violet 2 [place]) flash glucose sensor (FreeStyle #2 ea 08/23/20 02/21/21 Rx Violet 2 Sensor) insulin aspart U-100 100 unit/mL 0 unit SUBCUT TID ml 02/21/21 03/24/21 History (3 mL) subcutaneous pen (Novolog Flexpen U-100 Insulin aspart) aspirin 81 mg tablet,delayed 81 mg PO DAILY 03/24/21 03/24/21 History release cyanocobalamin (vitamin B-12) 100 100 mcg PO DAILY 03/24/21 03/24/21 History mcg tablet (Vitamin B-12) Past Med/Surg History Medical History Coronary artery disease Diabetes Diabetes mellitus with insulin therapy GERD (gastroesophageal reflux disease) Hyperlipemia Hypertension T2DM (type 2 diabetes mellitus) Uncontrolled type 2 diabetes mellitus Surgical History History of heart artery stent S/P triple vessel bypass Family History Mother T2DM (type 2 diabetes mellitus) Grandmother (Maternal) T2DM (type 2 diabetes mellitus) Father Heart disease Kidney disease Hypertension Other Diabetes Social History Smoking Status: Never smoker marital status: current occupational status: employed Feels Safe at Home: Yes Review of Systems Review of Systems: Chest pressure since resolved and fatigue no headache, no visual changes no speech or swallowing issues Exertional chest pain described as pressure left arm radiation with paresthesias also since resolved no shortness of breath, cough or wheezes no abdominal pain, nausea or vomiting, diarrhea or constipation no dysuria, hematuria or frequency no focal joint pain or swelling no back pain, CVA tenderness or radicular pain no bruising, bleeding or rashes no focal signs of weakness or numbness or altered sensation no complaints of anxiety or depression.. Physical Exam Physical Exam: The patient appeared well nourished and normally developed. Vital signs as documented. Head exam is normocephalic atraumatic Neck is without JVD, thyromegaly, or carotid bruits. Lungs are clear to auscultation, no focal loss of breath sounds Cardiac exam, Rhythm is regular.. No murmurs, rubs or gallops. Abdominal exam reveals normal bowel sounds, soft non tender, no masses Extremities are nonedematous and both pedal pulses are present Neurologic exam is alert and oriented, no focal loss of strength or sensation Skin is without bruises or rashes Psychologically is without concerns for anxiety or depression.. Results & Data Results & Data ([facility]) Vital Signs (Past 12 Hours) Vital Signs Temp Pulse Pulse Resp BP BP Pulse Ox 03/24/21 09:00 59 L 21 117/78 96 03/24/21 08:00 53 L 20 95/53 L 96 03/24/21 07:30 58 L 16 110/62 98 12/02/21 07:00 56 L 13 106/61 98 03/24/21 06:30 58 L 19 101/63 95 03/24/21 06:00 64 20 98/60 L 94 03/24/21 05:52 98 03/24/21 05:30 70 18 121/65 94 03/24/21 05:15 96 03/24/21 05:13 98 F 75 20 113/75 97 Code Status & VTE Plan VTE Prophylaxis Plan VTE Prophylaxis will be ordered: Yes PG Care Time/CCT Total # of Minutes Spent Total Time Spent with Patient: Total time spent is greater than 50% in coordination of care (as documented) at patient's floor/unit and/or counseling patient: Coding Level of Care Code INT OBSERVATION CARE 50M LVL 2 Diagnoses Coronary artery disease I25.10 Diabetes mellitus with insulin therapy E11.9; Z79.4 Hypertension I10 Hyperlipemia E78.5 GERD (gastroesophageal reflux disease) K21.9
--- NOTE | 2021-03-24 14:25 | Electrocardiogram Report ---
Test Reason : Blood Pressure : / mmHG Vent. Rate : 065 BPM Atrial Rate : 065 BPM P-R Int : 136 ms QRS Dur : 090 ms QT Int : 418 ms P-R-T Axes : 059 069 065 degrees QTc Int : 434 ms Normal sinus rhythm Normal ECG When compared with ECG of 06-NOV-2018 13:08, Nonspecific T wave abnormality has replaced inverted T waves in Anterior leads Confirmed by Otto Okeefe ([id number]) on 03/24/2021 2:24:50 PM Referred By: REFERRED SELF Confirmed By:Luis Alberto Okeefe
--- NOTE | 2021-03-24 19:42 | Emergency Department Note ---
Impression & Plan Chest pain Admit to the [facility] service ED Provider Note NAME: DAPHNIE GANDARA III AGE: 56 SEX: M ARRIVES VIA: Ambulance INFORMANT: Patient ED PROVIDER(S): Tressa Lindo DO CHIEF COMPLAINT: Chest heaviness PLAN: Disposition: Admit to the [facility] service Condition: Stable MEDICAL DECISION MAKING: This is a 56-year-old male patient who presents to the emergency department with two separate episodes of chest discomfort on exertion. The first one was relieved with rest. Today's episode was relieved with nitroglycerin. The patient has cardiac enzymes which were negative. The patient does have a significant cardiac history with triple bypass. I discussed the case with the [facility] Hospitalist and they will evaluate her for that management. Triage Nursing notes reviewed and agree with them. Prior medical records reviewed Vital Signs: reviewed and unremarkable Differential diagnosis: Anxiety, cardiac ischemia, STEMI, NSTEMI, GERD, aortic dissection ER treatment provided: Sublingual nitro Diagnostics interpreted by me: ECG: Normal sinus rhythm at a rate of [address] segment elevation or signs of ischemia. There is no ectopy Cardiac Monitoring: Normal sinus rhythm at a rate of 87 Laboratory studies: See below Imaging studies: As per my interpretation portable chest x-ray: No acute pulmonary pathology noted HPI: 56/M arrives for evaluation of chest discomfort. 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 He states it feels like someone is sitting on his chest. He also had associated left arm numbness. The patient underwent triple bypass surgery 4 years ago. He had a similar episode yesterday which lasted for approximately 2 hours and was brought on by exertion. It was relieved with rest. Patient was given four baby aspirin and sublingual nitro which did seem to relieve some of the discomfort. ROS: See above HPI for pertinent positives & negatives. A total of 10 systems reviewed and were otherwise negative. PAST MEDICAL HISTORY:See Below PAST SURGICAL HISTORY:See Below FAMILY HISTORY:See Below SOCIAL HISTORY:See Below HOME MEDICATIONS:See list ALLERGIES:See list VITALS:See Below PHYSICAL EXAMINATION: HEENT: Head - normocephalic and atraumatic Pupils are equal, round, and r eactive to light. Extraocular eye muscles are intact, and sclera are anicteric. Nose - moist nasal mucosa without discharge. Mouth - moist buccal mucosa. Oropharynx is nonerythematous and there is no tonsillar exudate or edema noted. Neck: Supple; no JVD or cervical lymphadenopathy Heart: Regular rate and rhythm. There is a normal S1 and S2 with no murmurs, clicks, or gallops appreciated. Lungs: Clear to auscultation bilaterally with no wheezes, rales, or rhonchi. Abdomen: Soft, completely nontender, nondistended, with good bowel sounds. There are no palpable pulsatile masses or hepatosplenomegaly. There is no guarding, rigidity, or rebound noted. Extremities: No evidence of cyanosis, clubbing, or edema. There are easily palpable peripheral pulses. Skin: warm and dry with good turgor and no rashes. ED COURSE: Times/Reassessments: 0535: The patient was evaluated in room C9. A complete history and physical was performed. An IV lock had been initiated. An order was placed for continuous cardiac monitoring. The patient was in a normal sinus rhythm at a rate of 87. A twelve-lead EKG was obtained as described above. The patient was still experiencing some chest discomfort as a 2/10. He was given sublingual nitroglycerin which did relieve his discomfort. A portable chest x-ray was performed which was unremarkable. I did discuss the case with the [facility] hospitalist and they will evaluate for further management. Tressa Lindo DO Past Med/Surg History Medical History Coronary artery disease Diabetes Diabetes mellitus with insulin therapy GERD (gastroesophageal reflux disease) Hyperlipemia Hypertension T2DM (type 2 diabetes mellitus) Uncontrolled type 2 diabetes mellitus Surgical History History of heart artery stent S/P triple vessel bypass Family History Mother T2DM (type 2 diabetes mellitus) Grandmother (Maternal) T2DM (type 2 diabetes mellitus) Father Heart disease Kidney disease Hypertension Other Diabetes Social History Smoking Status: Never smoker marital status: current occupational status: employed Feels Safe at Home: Yes Allergies Allergies Allergy/AdvReac Type Severity Reaction Status Date / Time latex Allergy Mild RASH Verified 02/21/21 14:52 amoxicillin AdvReac Intermediate Rash Unverified 03/24/21 13:26 ibuprofen AdvReac Mild VOMITING Verified 03/24/21 13:26 Home Meds Home Medications Medication Instructions Recorded Confirmed atorvastatin 80 mg tablet 80 mg PO HS 01/15/18 03/24/21 clopidogrel 75 mg tablet 75 mg PO QAM 01/15/18 03/24/21 dapagliflozin 10 mg tablet 10 mg PO QAM 01/15/18 03/24/[address]) lisinopril 5 mg tablet 5 mg PO QAM 01/15/18 03/24/21 metoprolol tartrate 25 mg tablet 25 mg PO BID 01/15/18 03/24/21 multivitamin (Multiple Vitamins) 1 tab PO QAM 01/15/18 03/24/21 metformin 500 mg tablet,extended 1,000 mg PO BID 11/06/18 03/24/21 release 24 hr pantoprazole 20 mg tablet,delayed 20 mg PO QAM 11/06/18 03/24/21 release lancets (Accu-Chek Softclix #100 ea 01/12/20 02/21/21 Lancets) pen needle, diabetic 31 gauge x #50 ea 01/12/20 02/21/21 3/16" (Comfort EZ Pen [place]) insulin glargine 100 unit/mL (3 15 unit SUBCUT HS ml 05/06/20 03/24/21 mL) subcutaneous pen (Basaglar KwikPen U-100 Insulin) blood sugar diagnostic (Accu-Chek #10 ea 07/15/20 02/21/21 Guide test strips) insulin aspart U-100 100 unit/mL 0 unit SUBCUT TID ml 02/21/21 03/24/21 (3 mL) subcutaneous pen (Novolog Flexpen U-100 Insulin aspart) aspirin 81 mg tablet,delayed 81 mg PO DAILY 03/24/21 03/24/21 release cyanocobalamin (vitamin B-12) 100 100 mcg PO DAILY 03/24/21 03/24/21 mcg tablet (Vitamin B-12) Previous Rx's Medication Instructions Recorded flash glucose scanning reader #1 ea 07/15/20 (AllyAlign HealthStyle Violet 2 [place]) flash glucose sensor (FreeStyle #2 ea 08/23/20 Violet 2 Sensor) Results & Data (ED) Vital Signs Vital Signs - 24 hr 03/24/21 05:13 03/24/21 05:15 03/24/21 05:30 Temperature 36.6 C Temperature Source Oral Pulse Rate 75 Pulse Rate [Apical] 70 Pulse Rate from SpO2 Sensor Respiratory Rate 20 18 Blood Pressure 113/75 Blood Pressure [Right Arm] 121/65 Blood Pressure Mean 87 Blood Pressure Mean [Right Arm] 83 Pulse Oximetry 97 96 94 Oxygen Delivery Method Room Air Room Air Room Air Sepsis New/Unexplained Change in Mental Status No Sepsis Action Taken by Nursing No Action Required 03/24/21 05:52 03/24/21 06:00 03/24/21 06:30 Temperature Temperature Source Pulse Rate 64 58 L Pulse Rate [Apical] Pulse Rate from SpO2 Sensor 66 59 L Respiratory Rate 20 19 Blood Pressure 98/60 L 101/63 Blood Pressure [Right Arm] Blood Pressure Mean 72 75 Blood Pressure Mean [Right Arm] Pulse Oximetry 98 94 95 Oxygen Delivery Method Room Air Room Air Room Air Sepsis New/Unexplained Change in Mental Status Sepsis Action Taken by Nursing 03/24/21 07:00 03/24/21 07:30 03/24/21 08:00 Temperature Temperature Source Pulse Rate 56 L 58 L 53 L Pulse Rate [Apical] Pulse Rate from SpO2 Sensor 57 L 60 56 L Respiratory Rate 13 16 20 Blood Pressure 106/61 110/62 95/53 L Blood Pressure [Right Arm] Blood Pressure Mean 76 78 67 Blood Pressure Mean [Right Arm] Pulse Oximetry 98 98 96 Oxygen Delivery Method Sepsis New/Unexplained Change in Mental Status Sepsis Action Taken by Nursing Laboratory Data Result diagrams: 03/24/21 05:00 03/24/21 05:00 Lab Results 03/24/21 03/24/21 03/24/21 Range/Units 05:00 05:00 08:55 WBC 6.61 (4.8-10.8) K/uL RBC 5.03 (4.7-6.1) M/uL Hgb 15.6 (14.0-18.0) g/dL Hct 47.0 (42-52) % MCV 93.4 (80-100) fL MCH 31.0 (25-34) pg MCHC 33.2 (32-36) g/dL RDW Std Deviation 44.3 (36.4-46.3) fL RDW Coeff of Sudhakar 12.9 (11.5-14.5) % Plt Count 244 (130-400) K/uL MPV 9.2 (7.4-10.4) fL Immature Gran % (Auto) 0.2 % Neut % (Auto) 67.8 % Lymph % (Auto) 20.1 % [place] % (Auto) 9.8 % Eos % (Auto) 1.8 % Baso % (Auto) 0.3 % Neut # (Auto) 4.48 (1.4-6.5) K/uL Lymph # (Auto) 1.33 (1.2-3.4) K/uL [place] # (Auto) 0.65 H (0.11-0.59) K/uL Eos # (Auto) 0.12 (0-0.5) K/uL Baso # (Auto) 0.02 (0-0.2) K/uL Immature Gran # (Auto) 0.01 (0.00-0.02) K/uL Sodium 139 (136-145) mmol/L Potassium 4.0 (3.5-5.1) mmol/L Chloride 108 H (98-107) mmol/L Carbon Dioxide 27 (21-32) mmol/L Anion Gap 4.0 (3-11) BUN 23 H (7-18) mg/dl Creatinine 1.17 (0.6-1.4) mg/dl Est Cr Clr Drug Dosing 106.1 ml/min Est GFR ( Amer) 81.4 ml/min Est GFR (Non-Af Amer) 70.3 ml/min BUN/Creatinine Ratio 19.6 (10-20) Glucose 153 H (70-99) mg/dl Calcium 9.6 (8.5-10.1) mg/dl Total Bilirubin 0.5 (0.2-1) mg/dl AST 18 (15-37) U/L ALT 45 (12-78) U/L Alkaline Phosphatase 78 (45-117) U/L Troponin I < 0.015 (0-0.045) ng/ml Total Protein 7.7 (6.4-8.2) gm/dl Albumin 4.2 (3.4-5.0) gm/dl Globulin 3.5 (2.5-4.0) gm/dl Albumin/Globulin Ratio 1.2 (0.9-2) Lipase 176 (73-393) U/L SARS-CoV-2, RNA, NAAT NEGATIVE (NEGATIVE) Administered Medications Discontinued Medications Nitroglycerin (Nitroglycerin Sl 0.4 Mg/Tab Tab) 0.4 mg SL NOW STA Stop: 03/24/21 05:50 Last Admin: 03/24/21 05:52 Dose: 0.4 mg Documented by: [id number] Imaging Data Radiologist's Impression: Chest X-Ray 03/24/21 05:18 XR chest 1V portable HISTORY: Atypical Chest Pain COMPARISON: None. FINDINGS: The lungs are clear. The heart is normal in size. No pleural effusions. No pneumothorax. There are poststernotomy changes. IMPRESSION: No acute process. ACT 112: Negative or not required by law. Electronically signed by: aGrret Arceo M.D. 03/24/2021 8:25 AM Discharge Plan Visit Data Chief Complaint: Chest Pain Stated Complaint: CHEST PAIN ED Provider: Tressa Lindo Discharge Problem: Chest pain Discharge Instructions Interventions: ED Discharge Assessment Last Done: 03/24/21 14:05 Discharge Problem: Chest pain Qualifiers: Chest pain type: precordial pain Qualified Code(s): R07.2 - Precordial pain
[2021-03-24] MEDS ORDERED: GLUCOSE 10 TABS/TUBE PO PRN (23:08)
[2021-03-24] MEDS ORDERED: NITROGLYCERIN SL 0.4 MG/TAB TAB SL PRN (23:08)
[2021-03-24] MEDS ORDERED: DEXTROSE 50% 50 ML SYRINGE IV PRN (23:08)
[2021-03-24] MEDS ORDERED: ONDANSETRON INJ 2 MG/ML 2 ML VIAL IV PRN (23:08)
[2021-03-24] MEDS ORDERED: ALUMINUM/MAGNESIUM SUSP 30 ML UDC PO PRN (23:08)
[2021-03-24] MEDS ORDERED: INSULIN ASPART 100 UNITS/ML 3 ML PEN SQ SCH (23:08)
[2021-03-24] MEDS ORDERED: CARBOHYDRATES FOR HYPOGLYCEMIA PO PRN (23:08)
[2021-03-24] MEDS ORDERED: GLUCAGON FOR INJ 1 MG VIAL SQ PRN (23:08)
[2021-03-24] MEDS ORDERED: GLUCOSE 40% GEL 15 GM TUBE PO PRN (23:08)
[2021-03-24] MEDS ORDERED: ACETAMINOPHEN 325 MG TAB PO PRN (23:08)
[2021-03-24] MEDS ORDERED: INSULIN GLARGINE SOLOSTAR 100 UNITS/ML 3 ML PEN SQ SCH (23:45)
[2021-03-24] MEDS ORDERED: ATORVASTATIN 40 MG TAB PO SCH (23:45)
[2021-03-25] MEDS ORDERED: SODIUM CHLORIDE 0.9% 1000ML 1,000 ML IV SCH
[2021-03-25] MEDS: CLOPIDOGREL BISULFATE 75 MG TAB PO SCH ×2 (00:53→08:51)
[2021-03-25] MEDS: CYANOCOBALAMIN (VITAMIN B-12) 100 MCG TABLET PO SCH ×2 (00:53→08:46)
[2021-03-25] MEDS: METOPROLOL TARTRATE 25 MG TAB PO SCH ×2 (00:53→08:47)
[2021-03-25] MEDS: PANTOprazole 40 MG TAB PO SCH ×2 (00:54→08:46)
[2021-03-25] MEDS: lisinopril 5 MG TAB PO SCH ×2 (00:54→09:42)
[2021-03-25] MEDS: ASPIRIN 81 MG ECTAB PO SCH ×2 (00:55→08:47)
[2021-03-25] MEDS: MULTIVITAMIN TAB PO SCH ×2 (00:55→08:47)
[2021-03-25] MEDS: INSULIN ASPART 100 UNITS/ML 3 ML PEN SC SCH ×2 (00:57→08:53)
[2021-03-25 08:31] LABS: Estimated Average Glucose 189 mg/dl; Hemoglobin A1C 8.2 % (4.5-5.6)
[2021-03-25] MEDS ORDERED: MIDAZOLAM HCL 1 MG/ML 2ML VIAL ONE (08:49)
--- NOTE | 2021-03-25 10:05 | Post Anesthesia Assessment ---
Date of Service March 25, 2021 Post Sedation Assessment Vital Signs Temp Pulse Pulse Resp BP BP Pulse Ox 03/25/21 07:37 59 L 18 116/67 99 03/25/21 07:12 55 L 16 101/62 96 03/25/21 03:00 50 L 16 112/65 96 03/25/21 01:04 03/25/21 00:43 65 16 117/62 98 03/24/21 13:00 36.8 C 87 18 118/73 97 03/24/21 11:11 36.9 C 19 113/71 96 03/24/21 10:30 57 L 21 110/70 96 Pulse Ox 03/25/21 07:37 03/25/21 07:12 03/25/21 03:00 03/25/21 01:04 97 03/25/21 00:43 03/24/21 13:00 03/24/21 11:11 03/24/21 10:30 Discharge Sedation Level of Care: Fast Track Phase II Post Sedation Plan On clinical assessment, the patient appears to have tolerated the sedation without complications. Patient is recovering as anticipated. Patient will continue to be monitored by nursing and may be discharged when sedation discharge criteria are met per below protocol. Upon Completions of procedure up to 15 minutes continue every 5 minute vital signs and the P.A.R. score; then discharge to a Phase I or Fast Track to Phase II per the following guidelines: * Discharge Patient to appropriate Phase II area if PAR is 8 or greater or return to pre- procedure baseline. The post - procedure orders will be as directed. * If PAR score is less than 8 or not return to pre-procedure baseline then patient will follow Phase I monitoring till PAR is reached for Phase II. The Phase I may be done in procedure room or may call to secure a Phase I area. * If naloxone or flumazenil are used for reversal, hold in Phase I for continued monitoring from when last reversal dose was given for a minimum of 60 minutes or longer pending the nurse and/or physician discretion of patient condition before discharge to Phase II. Please call the Sedation Physician to re-evaluate and complete post-note for discharge to Phase II area. Do NOT discharge from procedure sedation or Phase 1 until post- sedation evaluation note is complete by procedure /sedation MD Sedation Discharge Instructions to be given to the patient at discharge to home.
--- NOTE | 2021-03-25 10:05 | Pre Anesthesia Assessment ---
Date of Service March 25, 2021 Pre Sedation Assessment Vital Signs Temp Pulse Pulse Resp BP BP Pulse Ox 03/25/21 07:37 59 L 18 116/67 99 03/25/21 07:12 55 L 16 101/62 96 03/25/21 03:00 50 L 16 112/65 96 03/25/21 01:04 03/25/21 00:43 65 16 117/62 98 03/24/21 13:00 36.8 C 87 18 118/73 97 03/24/21 11:11 36.9 C 19 113/71 96 03/24/21 10:30 57 L 21 110/70 96 Pulse Ox 03/25/21 07:37 03/25/21 07:12 03/25/21 03:00 03/25/21 01:04 97 03/25/21 00:43 03/24/21 13:00 03/24/21 11:11 03/24/21 10:30 Pre-Sedation Airway Assessment Smoking Status: Never smoker Hx Sleep Apnea: No Short, Thick Neck: No Thyromental Distance: > or= 3.5 Finger Breadths Oral Cavity: + WNL Mallampati Class: III ASA: ASA3 NPO Status Date of Last Intake of Fluids: 03/25/21 Time of Last Intake of Fluids: 01:30 Date of Last Intake of Solid Food: 03/24/21 Time of Last Intake of Solid Foods: 13:00 Notes The planned sedation has been discussed with the patient. Informed Consent was obtained. I have identified the patient, determined the appropriateness of sedation and have assessed the patient immediately prior to the procedure. All medicine(s) and interventions are by my order.
--- NOTE | 2021-03-25 10:18 | Cardiac Catheterization ---
Date of Service March 25, 2021 Cardiac Cath Report Cardiac Cath Report Procedure: 1. Coronary angiography 2. Left ventriculogram 3. Left heart catheterization History: This is a 56-year-old male patient with known coronary artery disease who underwent coronary artery bypass surgery in 2018 receiving a saphenous vein graft to the circumflex marginal and right coronary artery. Patient also received an [place] graft to the LAD. 3 months later he represented with an occlusion of the saphenous vein graft to the OM and received a stent within the circumflex artery. Patient was in his usual state of health and then started to have chest pain and presented to the emergency department. After an informed discussion with the patient in a shared decision-making process we felt it would be best that he proceed directly to cardiac catheterization. Procedure summary: After informed consent was obtained the patient was taken to the cardiac catheterization lab where access was obtained using a retrograde Salinger technique from the right femoral artery. Preformed 5 [place] diagnostic catheters were utilized for the coronary angiograms. A 5 [place] pigtail catheter was utilized for the left heart catheterization and left ventriculogram. Following the procedure the arterial site was closed using manual pressure the patient was taken to the holding area the Management Sme in stable condition. ACC data: Start time 9:30 AM End time 9:58 AM Opening aortic pressure 109/62 Closing aortic pressure 123/69 Left ventricular pressure 130/20 IV sedation 1 mg intravenous Versed IV fluids 62 cc normal saline Contrast 160 cc Optiray Fluoroscopy time 8.3 minutes Radiation 778 mGy DAP 68.60 [place] per centimeter squared Right dominant system AUC score 7 Coronary angiography: Selective injections of the [place] left coronary artery reveal the left main trunk to be widely patent. The LAD is occluded after the takeoff of a medium size diagonal branch the left circumflex is patent. There is evidence of a previous stent which enters into a large first marginal branch. The AV groove portion of the artery continues on and is small distally. There is also a marginal branch just prior to the takeoff of the stented marginal which is functionally occluded and fills distally from left to left collaterals. Selective injections of the [place] right coronary artery reveal it to be occluded at its ostium. Selective injections of the [place] graft revealed to be widely patent supplying excellent antegrade flow to the distal LAD as well as some retrograde flow to the mid and proximal LAD. Injections into the saphenous vein graft to the right coronary artery revealed to be widely patent supplying both antegrade and retrograde flow to the right coronary artery. Left ventriculogram: The left ventricle is of normal size with normal systolic function. The mitral valve is competent. The aortic root and ascending aorta have normal morphology and diameter. Summary: The patient's [place] graft is widely patent along with the saphenous vein graft to the right coronary artery. The saphenous vein graft to the circumflex was known to be occluded from previous studies. The [place] right coronary artery is occluded at its ostium. The left circumflex artery is patent including the stent within a large marginal branch. There is the appearance of a functionally occluded first marginal branch that is filling from left to left collaterals distally. The [place] LAD is occluded in its mid segment. Recommendations: Continued medical management of the patient's coronary artery disease.
--- NOTE | 2021-03-25 16:42 | Discharge Summary ---
Date of Service March 25, 2021 Admission HPI Per Admitting Provider 56-year-old male underwent three-vessel CABG in 2018 1 being a LEARY who shortly after his CABG represented to [facility] and had a stent placed in what sounds like an obtuse marginal of circumflex artery.. Patient has been doing well following with [facility] cardiology but over the last 2 days he had exertional chest pain. He describes this as someone sitting on his chest. 1 day prior to presentation it was intermittent throughout the day but would resolve with rest. This morning when walking to his job at [employer] the pain was significant associated with left arm numbness and tingling and requ ired the patient to sit and rest. The patient states his chest pain continued until EMS gave him nitroglycerin now is since been pain-free. Initial troponins unremarkable and initial EKG is without acute current of injury. The patient is an insulin requiring diabetic denies any of his recent medications being changed said no upper respiratory symptoms or cold symptoms and is Covid negative in the ER. I did text messaged cardiology on-call for [facility] who will evaluate the patient and consider for diagnostic catheterization versus were stratification by other means Principal Diagnosis stable angina non occulusive CAD Discharge Exam The patient appeared well Vital signs as documented. Lungs are clear to auscultation and appear unlabored Cardiac exam, Rhythm is regular.. No murmurs, rubs or gallops. Abdominal exam reveals normal bowel sounds, soft non tender, no masses Extremities are nonedematous and both pedal pulses are normal. Patient's cardiac catheterization groin access was performed in the right side. Hemostasis is in place at the time of examination anticipating the patient will be good for discharge later in the day Neurologic exam is alert and oriented, no focal loss of strength or sensation Skin is without bruises or rashes Psychologically is without concerns for anxiety or depression. Discharge Data Allergies Allergy/AdvReac Type Severity Reaction Status Date / Time latex Allergy Mild RASH Verified 02/21/21 14:52 amoxicillin AdvReac Intermediate Rash Unverified 03/24/21 13:26 ibuprofen AdvReac Mild VOMITING Verified 03/24/21 13:26 Consultations 03/24/21 08:27 ED Decision to Admit Stat 03/24/21 09:39 Consult Cardiology Routine 03/24/21 23:08 Consult Cardiology Routine Procedures Performed Operation Date: 03/25/21 09:00 Actual Procedures p Cath, Left w/Cors Vent Grafts - Migel Pacheco, DO s Cineradiography w/Routine Exam - Migel Pacheco, Ordered Studies 03/25/21 06:38 CL Cath Imgs for PACS use only Routine Hospital Course (1) Coronary artery disease: Patient with CABG including LEARY with exertional chest pain. He is an insulin requiring diabetic. He is not a smoker so that is something in his favor. cardiac catheterization 03/25/21 The patient's [place] graft is widely patent along with the saphenous vein graft to the right coronary artery. The saphenous vein graft to the circumflex was known to be occluded from previous studies. The [place] right coronary artery is occluded at its ostium. The left circumflex artery is patent including the stent within a large marginal branch. There is the appearance of a functionally occluded first marginal branch that is filling from left to left collaterals distally. The [place] LAD is occluded in its mid segment. Dr Pacheco recommended adding prn sl nitro to help if symptoms recur but no other medication changes (2) Diabetes mellitus with insulin therapy: Farxiga insulin therapy at home plus Metformin (3) Hypertension: Blood pressures controlled on multiple agents which are can continue at this time (4) Hyperlipemia: Is on max dose high potency atorvastatin (5) GERD (gastroesophageal reflux disease): Continues on pantoprazole Total Time Total Time Spent Total Time Spent (In Minutes): It required greater than 30 minutes to prepare this patient for discharge Discharge Plan Discharge Items Patient Disposition: Home - Self-Care Reason For Visit: EXERTIONAL CHEST PAIN Discharge Diagnosis: stable angina Activity: Resume your previous activity Non-emergency contact: Primary Care Provider Call non-emergency contact if: you have any medication questions Follow-up/Referrals: Roger Lindsay MD [Primary Care Provider] - Diet: Regular Addtl Attending Provider Instructions: Call 911 or immediately go to the Hospital Emergency Department nearest your location if you feel you have an emergent problem. ACTIVITY RECOMMENDATIONS: * Do not lift over 5 pounds until after post-operative visit. * You may travel as a passenger in a car, but do not drive yourself until permitted by the doctor. * You may climb stairs three times each day, but not if tired or feeling weak. * Wear a sling for 10 days on the arm on the side of the incision if a pacemaker was implanted. * Do not raise the arm above your head on the side of the incision if a pacemaker was implanted. SPECIAL CARE INSTRUCTIONS: PLEASE CALL THE DOCTOR IF: * You measure your temperature with a thermometer and it is over 102 degrees F. * There is unexpected redness, swelling, pain or drainage from an incision. * You have unexpected shortness of breath. * You have increasing pain not helped by your medication. * You have urgent concerns about your surgery. * You are unable to eat or drink well. * You have uncontrollable nausea, vomiting or diarrhea. * You cannot eat your food. INCISION WOUND CARE: * Cover incision with sterile 4x4 gauze and secure with tape for 5 days. * Change the 4x4 gauze daily. * Do not use ointments or creams on the surgical wound. * You may shower 5 days after surgery. Be sure to dry off the wound. * Do not take a tub bath until after you are seen in the doctor's office. * Your surgery wound can be open to air five days after surgery. * Cover groin entry site with band-aid for 48 hours. TOBACCO AND ALCOHOL: * Alcohol should not be used. * Tobacco should not be used. SKIN IRRITATION: * You may experience some redness and/or swelling in the area where radiation was administered. If any skin irritation occurs, please contact your family physician. FOLLOW-UP VISIT: DOCTOR APPOINTMENT: * Please keep your appointment with the surgeon as scheduled. * Call the surgeon's office if an appointment change is needed. Pending Studies at Discharge: No Stand-Alone Forms: Anesthesia/Sedation, Adult, [facility], Work/School Release Medications and DC Order Prescriptions: New nitroglycerin 0.4 mg tablet, sublingual 0.4 mg sublingual Q5M Qty: 1 RF: 2 Continued (DME) lancets [Accu-Chek Softclix Lancets] Misc See Rx Instructions .ROUTE .MEDSUPPLY Qty: 100 RF: 0 (DME) pen needle, diabetic [Comfort EZ Pen [place]] 31 gauge x 3/16" needle See Rx Instructions .ROUTE .MEDSUPPLY Qty: 50 RF: 0 (DME) FreeStyle Violet 2 Sensor Kit See Rx Instructions miscellaneous .MEDSUPPLY Qty: 2 RF: 11 insulin aspart U-100 [Novolog Flexpen U-100 Insulin] 100 unit/mL (3 mL) insulin pen 0 unit subcut TID RF: 0 (DME) Accu-Chek Guide test strips Strip See Rx Instructions .ROUTE .MEDSUPPLY Qty: 10 RF: 0 (DME) FreeStyle Violet 2 [place] Misc See Rx Instructions miscellaneous .MEDSUPPLY Qty: 1 RF: 0 multivitamin [Multiple Vitamins] Tablet 1 tab PO QAM RF: 0 metoprolol tartrate 25 mg Tablet 25 mg PO BID RF: 0 clopidogrel 75 mg Tablet 75 mg PO QAM RF: 0 atorvastatin 80 mg Tablet 80 mg PO HS RF: 0 lisinopril 5 mg Tablet 5 mg PO QAM RF: 0 Farxiga 10 mg Tablet 10 mg PO QAM RF: 0 Basaglar KwikPen U-100 Insulin 100 unit/mL (3 mL) insulin pen 15 unit SUBCUT HS RF: 0 pantoprazole 20 mg tablet,delayed release (DR/EC) 20 mg PO QAM RF: 0 metformin 500 mg tablet extended release 24 hr 1,000 mg PO BID RF: 0 cyanocobalamin (vitamin B-12) [Vitamin B-12] 100 mcg Tablet 100 mcg PO DAILY RF: 0 aspirin 81 mg Tablet,Delayed Release (Dr/Ec) 81 mg PO DAILY RF: 0 Discharge Orders: Discharge Order (Routine); Ordered 03/25/21 Ordered By: Brett Wells/Other Patient Handouts: Managing Type 2 Diabetes, 5 Steps for Eating Healthier, Diabetes: Meal Planning Admission Data Admit Date/Time: 03/24/21 08:58 Attending Provider: Brett Batista Admit Provider: Brett Batista Primary Care Provider: Roger Lindsay Other Providers: Roger Okeefe ; Brett Batista ; Migel Pacheco Other Interventions: Discharge Summary Assessment (RN) Last Done: 03/25/21 13:48 Coding Level of Care Code D/C DAY MANAGEMENT >30 MINS Diagnoses Coronary artery disease I25.10 Diabetes mellitus with insulin therapy E11.9; Z79.4 Hypertension I10 Hyperlipemia E78.5 GERD (gastroesophageal reflux disease) K21.9
== END 2021-03-25 14:44 | disposition home or self-care (01) ==
LOC: ED 05:07 → EDINP 05:07

== ENCOUNTER 2025-01-20 14:25 | Observation (INO) ==
--- NOTE | 2025-01-20 14:34 | Emergency Department Note ---
History of Present Illness General Chief complaint: Chest Pain Stated complaint: BURNING SENSATION IN CHEST, CHEST PAIN Time Seen by Provider: 01/20/25 14:33 History of Present Illness This is a 59-year-old male that presents to the emergency department via private vehicle with complaints of "burning sensation in chest, chest pain". Patient notes history of coronary artery bypass grafting in 2018 performed at [facility]. Patient does utilize nitro as needed for chest pain. Over the past few months he notes increase in chest pain but normally the pain abates with nitroglycerin. However he notes that around 5:30 AM he was walking to his vehicle and when he walked back he began with chest discomfort. He describes this as a burning sensation and heaviness in the central chest area. No trauma. No injury. He took nitroglycerin and pain is now 1/10 and much improved but still present. He did take low-dose aspirin earlier today. He is on Plavix as well. The onset of the symptoms today was around 5 AM. No shortness of breath. No leg swelling. No calf pain. Patient denies any history of PE. Home Medications Medication Instructions Recorded Confirmed Type clopidogrel 75 mg tablet 75 mg PO QAM 01/15/18 01/20/25 History dapagliflozin propanediol 10 mg 10 mg PO QAM 01/15/18 01/20/25 History tablet (Farxiga) metoprolol tartrate 25 mg tablet 25 mg PO BID 01/15/18 01/20/25 History multivitamin (Multiple Vitamins 1 tab PO QAM 01/15/18 01/20/25 History tablet) metformin 500 mg tablet,extended 1,000 mg PO BID 11/06/18 01/20/25 History release 24 hr pantoprazole 20 mg tablet,delayed 20 mg PO QAM 11/06/18 01/20/25 History release aspirin 81 mg tablet,delayed 81 mg PO DAILY 03/24/21 01/20/25 History release nitroglycerin 0.4 mg sublingual 0.4 mg sublingual Q5M #1 btl 03/25/21 01/20/25 Rx tablet pen needle, diabetic 31 gauge x #400 ea 06/08/21 12/01/24 Rx 3/16" (Comfort EZ Pen Ernest) lancets 33 gauge (Abdoul López #450 ea 08/07/22 12/01/24 Rx Plus Lancet) blood-glucose,research/program director,cont #1 ea 08/09/22 12/01/24 Rx (Dexcom G7 Labor Economics Professor) blood-glucose sensor (Dexcom G7 #9 ea 07/27/23 12/01/24 Rx Sensor device) blood sugar diagnostic (Accu-Chek #100 ea 08/18/24 12/01/24 Rx Guide test strips) Novolog U-100 Insulin aspart 100 85 unit (0.85 mL) continuous 11/10/24 01/20/25 Rx unit/mL subcutaneous solution subcutaneous infusion DAILY #30 mL (insulin aspart U-100) atorvastatin 80 mg tablet 80 mg PO HS #30 tabs 12/01/24 01/20/25 Rx ezetimibe 10 mg tablet 10 mg PO DAILY #30 tabs 01/14/25 01/20/25 Rx Allergies Allergy/AdvReac Type Severity Reaction Status Date / Time latex Allergy Mild RASH Verified 01/20/25 16:12 amoxicillin AdvReac Intermediate Rash Verified 01/20/25 16:12 ibuprofen AdvReac Mild DIZZINESS/GI Verified 01/20/25 16:12 INTOLERANCE Past Med/Surg History Problem List (Updated 01/20/25 @ 18:31 by Bright Amaya PA-C) Hx of CABG (Acute) Chest pain (Acute) Hyperlipemia T2DM (type 2 diabetes mellitus) (Acute) Uncontrolled type 2 diabetes mellitus (Chronic) Medical History Diabetes mellitus with insulin therapy Coronary artery disease GERD (gastroesophageal reflux disease) Hypertension Surgical History History of heart artery stent S/P triple vessel bypass Family History Mother T2DM (type 2 diabetes mellitus) Grandmother (Maternal) T2DM (type 2 diabetes mellitus) Father Heart disease Kidney disease Hypertension Other Diabetes Social History Smoking Status: Never smoker Hx Alcohol Use: Yes Hx Substance Use: No Preferred Language: Honduran Communication Ability: Effective Motor Tune Up Specialist Required: No Beliefs That Will Affect Care: None marital status: Current Living Situation: Spouse current occupational status: employed Feels Safe at Home: Yes Assistive Devices: Glasses Review of Systems A total of 10 systems reviewed and were otherwise negative Physical Exam Vital Signs Vital Signs - 24 hr 01/20/25 14:27 01/20/25 14:39 01/20/25 14:47 Temperature 36.4 C L Temperature Source Temporal Artery Scan Pulse Rate 65 65 59 L Pulse Rate from SpO2 Sensor Respiratory Rate 20 17 Blood Pressure 124/68 115/64 Blood Pressure Mean 86 81 Pulse Oximetry 97 96 Oxygen Delivery Method Room Air Sepsis New/Unexplained Change in Mental Status N/A Sepsis Action Taken by Nursing No Action Required 01/20/25 14:48 01/20/25 15:00 01/20/25 15:00 Temperature Temperature Source Pulse Rate Pulse Rate from SpO2 Sensor Respiratory Rate Blood Pressure 123/74 123/74 Blood Pressure Mean 105 105 Pulse Oximetry Oxygen Delivery Method Room Air Sepsis New/Unexplained Change in Mental Status Sepsis Action Taken by Nursing 01/20/25 15:03 01/20/25 15:30 01/20/25 15:30 Temperature Temperature Source Pulse Rate 62 61 Pulse Rate from SpO2 Sensor 62 62 Respiratory Rate 24 23 Blood Pressure 123/75 Blood Pressure Mean 93 Pulse Oximetry 94 96 Oxygen Delivery Method Sepsis New/Unexplained Change in Mental Status Sepsis Action Taken by Nursing 01/20/25 15:30 01/20/25 15:30 01/20/25 15:51 Temperature Temperature Source Pulse Rate 61 64 Pulse Rate from SpO2 Sensor 65 Respiratory Rate 22 17 Blood Pressure 123/75 123/75 Blood Pressure Mean 93 93 Pulse Oximetry 97 96 Oxygen Delivery Method Sepsis New/Unexplained Change in Mental Status Sepsis Action Taken by Nursing VITAL SIGNS - Vital signs and nursing notes were reviewed. Stable and afebrile. GENERAL -59-year-old male appearing his stated age who is in no acute distress. Communicates well with provider and answers questions appropriately. SKIN - Without rashes. No meningeal or petechial rash. HEAD - NC/AT. EYES - PERRL with EOMI bilaterally. Sclera anicteric. EARS - No deformities of external structures noted on gross examination bilaterally. NOSE - Midline and without cyanosis. No epistaxis or purulent drainage noted. MOUTH/OROPHARYNX - Without perioral cyanosis. NECK - No nuchal rigidity. LUNGS - CTA CARDIAC - RRR ABDOMEN - Abdominal contour normal without pulsations or visible masses. BS normoactive all four quadrants. No tenderness, palpable masses, hepatosplenomegaly, or ascites noted. EXTREMITIES - No clubbing or peripheral cyanosis. +5/5 strength noted in UE/LE bilaterally. NEUROLOGIC - Cranial nerves II through XII grossly intact. PSYCH -alert, oriented and pleasant on exam. Course Administered Medications Sucralfate (Sucralfate 1 Gm/10 Ml Udc) 1 gm PO QID SHAYNE Stop: 02/19/25 16:59 Last Admin: 01/20/25 17:19 Dose: 1 gm Documented By: DM Discontinued Medications Aspirin (Aspirin 81 Mg Ectab) 243 mg PO NOW STA Stop: 01/20/25 15:05 Last Admin: 01/20/25 15:14 Dose: 243 mg Documented By: SONIA Nitroglycerin (Nitroglycerin Sl 0.4 Mg/Tab Tab) 0.4 mg SL Q5M SHAYNE Stop: 02/19/25 16:29 Last Admin: 01/20/25 17:14 Dose: Not Given Documented By: [facility] Admin: 01/20/25 17:03 Dose: Not Given Documented By: [facility] Admin: 01/20/25 17:03 Dose: Not Given Documented By: [facility] Admin: 01/20/25 17:02 Dose: Not Given Documented By: [facility] Medical Decision Making Laboratory Data 01/20/25 14:40 01/20/25 14:40 Lab Results 01/20/25 01/20/25 Range/Units 14:40 16:08 WBC 5.63 (4.8-10.8) K/ul RBC 4.64 L (4.70-6.10) M/uL Hgb 14.2 (14.0-18.0) g/dl Hct 41.8 L (42.0-52.0) % MCV 90.1 (80.0-100.0) fL MCH 30.6 (25.0-34.0) pg MCHC 34.0 (32.0-36.0) g/dL RDW Std Deviation 42.0 (36.4-46.3) fL RDW Coeff of Sudhakar 12.9 (11.5-14.5) % Plt Count 246 (130-400) K/uL MPV 8.9 L (9.4-12.4) fL Immature Gran % (Auto) 0.4 % Neut % (Auto) 67.0 % Lymph % (Auto) 21.5 % [place] % (Auto) 8.5 % Eos % (Auto) 2.1 % Baso % (Auto) 0.5 % Neut # (Auto) 3.77 (1.40-6.50) K/uL Lymph # (Auto) 1.21 (1.20-3.40) K/uL [place] # (Auto) 0.48 (0.11-0.59) K/uL Eos # (Auto) 0.12 (0.00-0.50) K/uL Baso # (Auto) 0.03 (0.00-0.20) K/uL Immature Gran # (Auto) 0.02 (0.01-0.20) K/uL PT 10.3 (9.0-12.0) Seconds INR 1.0 (0.9-1.1) APTT 25 (21-31) Seconds PTT Ratio 0.9 Sodium 140 (136-145) mmol/L Potassium 3.9 (3.5-5.1) mmol/L Chloride 105 (98-107) mmol/L Carbon Dioxide 26 (21-32) mmol/L Anion Gap 9 (3-11) BUN 15 (6-23) mg/dl Creatinine 0.90 (0.6-1.4) mg/dl Est Cr Clr Drug Dosing 81.1 ml/min eGFR 99.62 BUN/Creatinine Ratio 16.7 (10-20) Glucose 149 H (70-99(Fasting)) mg/dl POC Glucose 95 (70-99) mg/dl Calcium 9.3 (8.6-10.3) mg/dl Total Bilirubin 0.6 (0.2-1.0) mg/dl AST 18 (13-39) U/L ALT 25 (7-52) U/L Alkaline Phosphatase 55 (34-104) U/L Troponin I High Sens 2.8 (0-20) pg/ml Total Protein 6.6 (6.0-8.3) gm/dl Albumin 4.5 (3.4-5.0) gm/dl Globulin 2.1 L (2.5-4.0) gm/dl Albumin/Globulin Ratio 2.1 H (0.9-2) Lipase 39 (11-82) U/L Imaging Data Radiologist's Impression: Chest X-Ray 01/20/25 14:49 XR chest 1V portable CLINICAL HISTORY: chest pain COMPARISON STUDY: 02/08/2024 FINDINGS: Stable CABG. Heart size and pulmonary vasculature are normal. No consolidation or pleural effusion. No pneumothorax. IMPRESSION: No acute findings. ACT 112: Negative or not required by law. Electronically signed by: Rodolfo Castro M.D. 01/20/2025 3:08 PM MDM Narrative Patient was seen and evaluated as above in room C07. Review was performed of triage nursing notes and vital signs. I did review pertinent previous visits and patient history. After obtaining a thorough history and physical examination the above work up was performed. Patient presents to us today with the above symptoms. Options of care were discussed with the patient. IV access was established. Labs were drawn. EKG was performed per my interpretation this reveals normal sinus rhythm at a rate of 61 bpm. QTc 398. QRS 88. No ST elevation on this rhythm tracing. A chest x-ray was performed. Findings as above and I agree there are no acute findings. Labs reveal no leukocytosis or concerning anemia. Coags normal. No evidence of kidney or liver failure. Troponin negative. Will note that in the setting of symptoms that began at 5 AM today, 1 troponin should be sufficient. Lipase normal. The patient has a significant cardiac history. He is essentially pain-free at this time, initially was 1/10 on arrival. Remainder of the aspirin dose was ordered to equal 325. He had low-dose aspirin earlier today. The patient I do believe would benefit from further evaluation and management in the inpatient setting. Case discussed with hospitalist service, Dr. Oviedo. I also discussed the case with Dr. Quiñones, [facility] cardiology. Patient initially was apprehensive to staying however did present to bedside and patient also discussed with his parents at bedside and plan will be to proceed with staying in the hospital as the patient is now amenable. I did update Dr. Quiñones on the patient's plan out to stay in the hospital which I believe would be best. Patient will be n.p.o. after midnight. Please refer to further documentation regarding his stay. GCS: 15 In the evaluation and treatment of this patient the following differential diagnoses were entertained: ACS, PE, dissection, pneumonia, costochondritis, among others. Impression & Plan Chest pain, T2DM (type 2 diabetes mellitus), Hx of CABG Discharge Plan Visit Data Chief Complaint: Chest Pain Stated Complaint: BURNING SENSATION IN CHEST, CHEST PAIN ED Provider: Kisha Bartlett ED Midlevel Provider: Bright Amaya Discharge Problem: Chest pain, T2DM (type 2 diabetes mellitus), Hx of CABG Patient Disposition: Admitted As Inpatient Condition: Good
[2025-01-20 14:59] LABS: Hematocrit (blood only) 41.8 % (42.0-52.0); Hemoglobin 14.2 g/dl (14.0-18.0); Immature Granulocytes # (auto) 0.02 K/uL (0.01-0.20); Immature Granulocytes % (auto) 0.4 %; Mean Corpuscular Hemoglobin 30.6 pg (25.0-34.0); Mean Corpuscular Volume 90.1 fL (80.0-100.0); Platelet Count 246 K/uL (130-400); RDW Standard Deviation 42.0 fL (36.4-46.3); Red Blood Count 4.64 M/uL (4.70-6.10); White Blood Count 5.63 K/ul (4.8-10.8)
--- NOTE | 2025-01-20 15:09 | XRay Report ---
XR chest 1V portable CLINICAL HISTORY: chest pain COMPARISON STUDY: 02/08/2024 FINDINGS: Stable CABG. Heart size and pulmonary vasculature are normal. No consolidation or pleural e ffusion. No pneumothorax. IMPRESSION: No acute findings. ACT 112: Negative or not required by law. Electronically signed by: Rodolfo Castro M.D. 01/20/2025 3:08 PM
[2025-01-20] MEDS: ASPIRIN 81 MG ECTAB PO STA (15:14)
[2025-01-20 15:17] LABS: Alanine Aminotransferase 25.0 U/L (7-52); Albumin Globulin Ratio 2.1 (0.9-2); Albumin Level 4.5 gm/dl (3.4-5.0); Alkaline Phosphatase 55.0 U/L (34-104); Anion Gap 9.0 (3-11); Bilirubin,Total 0.6 mg/dl (0.2-1.0); Blood Urea Nitrogen 15.0 mg/dl (6-23); Calcium 9.3 mg/dl (8.6-10.3); Carbon Dioxide 26.0 mmol/L (21-32); Chloride 105.0 mmol/L (98-107); Creatinine Clr Calc Pharmacy 81.1 ml/min; Globulin 2.1 gm/dl (2.5-4.0); Glucose 149.0 mg/dl (70-99(Fasting)); Lipase 39.0 U/L (11-82); Potassium 3.9 mmol/L (3.5-5.1); Sodium 140.0 mmol/L (136-145); Total Protein 6.6 gm/dl (6.0-8.3)
[2025-01-20 15:29] LABS: INR 1.0 (0.9-1.1); Partial Thromboplastin Time 25 Seconds (21-31); Prothrombin Time 10.3 Seconds (9.0-12.0)
[2025-01-20] MEDS ORDERED: ACETAMINOPHEN 325 MG TAB PO PRN (16:29)
[2025-01-20] MEDS ORDERED: PHARMACY GLYCEMIC MGMT CONSULT PRN (16:29)
--- NOTE | 2025-01-20 16:40 | History & Physical Report ---
Date of Service January 20, 2025 Assessment & Plan (1) Chest pain: Plan: -asa, plavix, metoprolol, statin -nitro prn -Cardiology Dr. Quiñones spoken with -stress test in am -keep NPO (2) Coronary artery disease: Plan: -s/p CABGx3 (3) T2DM (type 2 diabetes mellitus): Plan: -insulin pump -lantus -pharm consult for glycemic management Plan Heparin SQ for DVT px History of Present Illness Chief Complaint: Burning in the chest Primary Care Provider: Otto Lindsay MD Pt is a 59 y/o male with pmh of CAD s/p CABG x3, DM who presents with "burning in his chest" that started earlier today. Pt denies any palpitations or SOB. He currently rates the discomfort at 10. In the ER his EKG and troponin were negative for ischemia. His case was discussed with his offshore wind operations manager Dr. Quiñones who recommended admission for stress test in the am. Pt was initially reluctant to stay, however later on agreed. Allergies Allergy/AdvReac Type Severity Reaction Status Date / Time latex Allergy Mild RASH Verified 01/20/25 16:12 amoxicillin AdvReac Intermediate Rash Verified 01/20/25 16:12 ibuprofen AdvReac Mild DIZZINESS/GI Verified 01/20/25 16:12 INTOLERANCE Home Medications Medication Instructions Recorded Confirmed Type clopidogrel 75 mg tablet 75 mg PO QAM 01/15/18 01/20/25 History dapagliflozin propanediol 10 mg 10 mg PO QAM 01/15/18 01/20/25 History tablet (Farxiga) metoprolol tartrate 25 mg tablet 25 mg PO BID 01/15/18 01/20/25 History multivitamin (Multiple Vitamins 1 tab PO QAM 01/15/18 01/20/25 History tablet) metformin 500 mg tablet,extended 1,000 mg PO BID 11/06/18 01/20/25 History release 24 hr pantoprazole 20 mg tablet,delayed 20 mg PO QAM 11/06/18 01/20/25 History release aspirin 81 mg tablet,delayed 81 mg PO DAILY 03/24/21 01/20/25 History release nitroglycerin 0.4 mg sublingual 0.4 mg sublingual Q5M #1 btl 03/25/21 01/20/25 Rx tablet pen needle, diabetic 31 gauge x #400 ea 06/08/21 12/01/24 Rx 3/16" (Comfort EZ Pen [place]) lancets 33 gauge (OneTouch Delica #450 ea 08/07/22 12/01/24 Rx Plus Lancet) blood-glucose,strategic alliances manager,cont #1 ea 08/09/22 12/01/24 Rx (Dexcom G7 Silhouette Artist) blood-glucose sensor (Dexcom G7 #9 ea 07/27/23 12/01/24 Rx Sensor device) blood sugar diagnostic (Accu-Chek #100 ea 08/18/24 12/01/24 Rx Guide test strips) Novolog U-100 Insulin aspart 100 85 unit (0.85 mL) continuous 11/10/24 01/20/25 Rx unit/mL subcutaneous solution subcutaneous infusion DAILY #30 mL (insulin aspart U-100) atorvastatin 80 mg tablet 80 mg PO HS #30 tabs 12/01/24 01/20/25 Rx ezetimibe 10 mg tablet 10 mg PO DAILY #30 tabs 01/14/25 01/20/25 Rx Past Med/Surg History Problem List Hyperlipemia T2DM (type 2 diabetes mellitus) Uncontrolled type 2 diabetes mellitus (Chronic) Medical History Diabetes mellitus with insulin therapy Coronary artery disease GERD (gastroesophageal reflux disease) Hypertension Surgical History History of heart artery stent S/P triple vessel bypass Family History Mother T2DM (type 2 diabetes mellitus) Grandmother (Maternal) T2DM (type 2 diabetes mellitus) Father Heart disease Kidney disease Hypertension Other Diabetes Social History Smoking Status: Never smoker Hx Alcohol Use: Yes Hx Substance Use: No Preferred Language: Citizen Of [place] Communication Ability: Effective Neurology Specialist Required: No Beliefs That Will Affect Care: None marital status: Current Living Situation: Spouse current occupational status: employed Feels Safe at Home: Yes Assistive Devices: Glasses Review of Systems Review of Systems: CONST: Negative for fever, body aches and chills. HENT: Negative for neck pain/stiffness, headache, congestion, sore throat, swelling. EYES: Negative for discharge/pain or vision changes. RESP: Negative for cough/hemoptysis and shortness of breath. CV: + chest pain, difficulty breathing, palpitations. ABD: Negative pain, nausea, vomiting. : Negative increase frequency, dysuria, blood in urine or stool. MUSC: Negative for muscle aches, edema. SKIN: Negative rash, lesions/sores. NEURO: Negative headache, dizziness, weakness. Physical Exam Physical Exam: GENERAL APPEARANCE NAD, activity normal for age, well developed/ well nourished, no cyanosis, pallor, or diaphoresis. EYES lids/conjunctiva normal. EARS/NOSE/THROAT Mucous membranes moist, nares normal, lips/teeth normal uvula midline without oral pharyngeal erythema, exudate or swelling TMs normal bilaterally. No lymphangitis/lymphedema. HEAD/NECK normocephalic atraumatic, no facial trauma, neck is supple. RESPIRATORY respiratory effort normal, speaks in full sentences, no tripod position, no accessory muscle use. Lungs clear to auscultation without rhonchi, wheezes, rales CARDIAC Regular rate and rhythm, no edema. ABDOMINAL Soft, ND/NT. No evidence of fluid wave. No pulsatile masses on exam, rebound tenderness, Ordoñez sign or pain over Mcburney's point. MUSCLES/EXTREMITIES No abnormal range of motion, no swelling. SKIN Warm, pink and dry. No rashes, dermatoses, petechiae or lesions. NEUROLOGICAL Speech is clear and appropriate. Normal level of consciousness. Gait and coordination are normal. 5/5 strength in all extremities. PSYCH Normal mood and affect. Judgement/competence is appropriate Results & Data Results & Data Vital Signs (Past 12 Hours) Vital Signs Temp Pulse Resp BP Pulse Ox O2 Del Method 01/20/25 15:51 64 17 96 01/20/25 15:30 123/75 01/20/25 15:30 61 22 123/75 97 01/20/25 15:30 12375 01/20/25 15:30 61 23 96 01/20/25 15:03 62 24 94 01/20/25 15:00 123/74 01/20/25 15:00 123/74 01/20/25 14:48 Room Air 01/20/25 14:47 59 L 01/20/25 14:39 65 17 115/64 96 01/20/25 14:27 36.4 C L 65 20 124/68 97 Room Air PG Care Time/CCT Total # of Minutes Spent Total Time Spent with Patient: Total time spent is greater than 50% in coordination of care (as documented) at patient's floor/unit and/or counseling patient: Coding Level of Care Code 49175 INT INP/OBS CARE 2/55MIN Diagnoses Chest pain R07.9 Coronary artery disease I25.10 Type 2 diabetes mellitus with other circulatory complication, with long-term current use of insulin E11.59; Z79.4 Diabetes mellitus long chain beamer insulin use: with shelter use Diabetes mellitus complication status: with circulatory complication Diabetes mellitus complication detail: with other circulatory complications (3) T2DM (type 2 diabetes mellitus) Diabetes mellitus long chain beamer insulin use: with long chain beamer use Diabetes mellitus complication status: with circulatory complication Diabetes mellitus complication detail: with other circulatory complications Qualified Code(s): E11.59 - Type 2 diabetes mellitus with other circulatory complications; Z79.4 - [facility] (current) use of insulin
[2025-01-20] MEDS: NITROGLYCERIN SL 0.4 MG/TAB TAB SL SCH (17:02)
[2025-01-20] MEDS ORDERED: NITROGLYCERIN SL 0.4 MG/TAB TAB SL PRN (17:05)
[2025-01-20] MEDS: SUCRALFATE 1 GM/10 ML UDC PO SCH (17:19)
[2025-01-20] MEDS ORDERED: CARBOHYDRATES FOR HYPOGLYCEMIA PO PRN (18:45)
[2025-01-20] MEDS ORDERED: GLUCOSE 10 TAB/TUBE PO PRN (18:45)
[2025-01-20] MEDS ORDERED: GLUCAGON FOR INJ 1 MG VIAL SQ PRN (18:45)
[2025-01-20] MEDS ORDERED: GLUCOSE 40% GEL 15 GM TUBE PO PRN (18:45)
[2025-01-20] MEDS ORDERED: DEXTROSE 50% 50 ML SYRINGE IV PRN (18:45)
[2025-01-20] MEDS ORDERED: INSULIN ASPART 100 UNITS/ML VIAL SC PRN (18:45)
[2025-01-20] MEDS: ATORVASTATIN 40 MG TAB PO SCH (21:43)
[2025-01-20] MEDS: METOPROLOL TARTRATE 25 MG TAB PO SCH (21:43)
[2025-01-20] MEDS: INSULIN, Rapid-Acting PUMP SCH (22:39)
[2025-01-20] MEDS: HEPARIN SOD 5,000 UNIT/0.5 ML VIAL SQ SCH (22:45)
[2025-01-21] MEDS ORDERED: INSULIN ASPART PER UNIT CHARGE SQ SCH (09:00)
[2025-01-21] MEDS ORDERED: NON-FORMULARY MEDICATION (Insulin Glargine U-300 Conc [Toujeo Max U-300 Solostar] 300 unit SQ SCH (09:00)
[2025-01-21] MEDS: CLOPIDOGREL BISULFATE 75 MG TAB PO SCH (10:16)
[2025-01-21] MEDS: CYANOCOBALAMIN (B-12) 500 MCG TABLET PO SCH (10:16)
[2025-01-21] MEDS: EZETIMIBE 10 MG TAB PO SCH (10:17)
[2025-01-21] MEDS: MULTIVITAMIN TAB PO SCH (10:17)
[2025-01-21] MEDS: ASPIRIN 81 MG ECTAB PO SCH (10:17)
--- NOTE | 2025-01-21 10:22 | Cardiology Consultation ---
Date of Consultation January 21, 2025 Assessment & Plan (1) Chest pain: (2) Hx of CABG: (3) T2DM (type 2 diabetes mellitus): Plan Patient is a 59-year-old male with known longstanding coronary artery disease as outlined above. Presented with symptoms of throat burning and chest burning without exertional relationship. EKGs and cardiac enzymes without evidence of acute coronary syndrome. Stress echocardiography today demonstrates no stress-induced ischemia at 7 METS level workload and 89% age-predicted maximal heart rate. Mild throat burning at peak exertion Recommendations continued medical therapy: Agree with increase in proton pump inhibitor. Continue outpatient cardiac medications. May consider addition of long-acting nitrates though contraindicated with the use of sildenafil. Will arrange for outpatient cardiology follow-up History of Present Illness Reason for Consultation: Chest pain Attending Physician: William Oviedo MD History of Present Illness Patient is a 59-year-old male with cardiac concerns as below 1. Chronic coronary disease s/p CABG x3 with LEARY to the LAD, saphenous vein graft to the OM of the left circumflex artery and saphenous vein graft to the right coronary artery 04/2017. -SVG to OM occluded 06/2017 s/p JAY to [place] [facility] -repeat cardiac catheterization performed 03/2021 demonstrating stable disease. 2. Dyslipidemia 3. Hypotension related to medical therapies. 4. DM-2 Patient presents this admission noting having developed a burning sensation from upper epigastric area all the way to the throat yesterday. Symptoms lasted several hours in duration before resolving. Sought ER evaluation with initial EKG normal and cardiac enzyme normal. Patient is generally active about home and job notes no specific exertional relationship. Notes no tachypalpitations syncope or near syncope. Patient compliant with medications. No fevers chills or unexplained infections. No bleeding difficulties. Appetite and weight are stable. Allergies Allergy/AdvReac Type Severity Reaction Status Date / Time latex Allergy Mild RASH Verified 01/20/25 16:12 amoxicillin AdvReac Intermediate Rash Verified 01/20/25 16:12 ibuprofen AdvReac Mild DIZZINESS/GI Verified 01/20/25 16:12 INTOLERANCE Home Medications Medication Instructions Recorded Confirmed Type clopidogrel 75 mg tablet 75 mg PO QAM 01/15/18 01/20/25 History dapagliflozin propanediol 10 mg 10 mg PO QAM 01/15/18 01/20/25 History tablet (Farxiga) metoprolol tartrate 25 mg tablet 25 mg PO BID 01/15/18 01/20/25 History multivitamin (Multiple Vitamins 1 tab PO QAM 01/15/18 01/20/25 History tablet) metformin 500 mg tablet,extended 1,000 mg PO BID 11/06/18 01/20/25 History release 24 hr pantoprazole 20 mg tablet,delayed 20 mg PO QAM 11/06/18 01/20/25 History release aspirin 81 mg tablet,delayed 81 mg PO DAILY 03/24/21 01/20/25 History release nitroglycerin 0.4 mg sublingual 0.4 mg sublingual Q5M #1 btl 03/25/21 01/20/25 Rx tablet pen needle, diabetic 31 gauge x #400 ea 06/08/21 12/01/24 Rx 3/16" (Comfort EZ Pen [place]) lancets 33 gauge (OneTouch Delica #450 ea 08/07/22 12/01/24 Rx Plus Lancet) blood-glucose,aquarium specialist,cont #1 ea 08/09/22 12/01/24 Rx (Dexcom G7 Escalator Mechanic) blood-glucose sensor (Dexcom G7 #9 ea 07/27/23 12/01/24 Rx Sensor device) blood sugar diagnostic (Accu-Chek #100 ea 08/18/24 12/01/24 Rx Guide test strips) Novolog U-100 Insulin aspart 100 85 unit (0.85 mL) continuous 11/10/24 01/20/25 Rx unit/mL subcutaneous solution subcutaneous infusion DAILY #30 mL (insulin aspart U-100) atorvastatin 80 mg tablet 80 mg PO HS #30 tabs 12/01/24 01/20/25 Rx ezetimibe 10 mg tablet 10 mg PO DAILY #30 tabs 01/14/25 01/20/25 Rx Patient History Medical History Diabetes mellitus with insulin therapy Coronary artery disease GERD (gastroesophageal reflux disease) Hypertension Surgical History History of heart artery stent S/P triple vessel bypass Family History Mother T2DM (type 2 diabetes mellitus) Grandmother (Maternal) T2DM (type 2 diabetes mellitus) Father Heart disease Kidney disease Hypertension Other Diabetes Social History Smoking Status: Never smoker Hx Alcohol Use: No Hx Substance Use: No Preferred Language: Dive[place] Communication Ability: Effective Medical Information Specialist Required: No Beliefs That Will Affect Care: None marital status: Current Living Situation: Spouse current occupational status: employed Feels Safe at Home: Yes Assistive Devices: Glasses Review of Systems Review of Systems: All systems reviewed & are unremarkable except as noted in HPI & below Physical Exam Constitutional: WD/WN, vitals as above no acute distress Eyes: PERRL, conjunctivae normal, anicteric sclerae ENMT: external ear and nose normal, oropharynx normal Neck: trachea midline, no thyromegaly Respiratory: normal respiratory effort, lungs clear to auscultation Cardiovascular: Rate/Rhythm: regular rate and regular rhythm Heart Sounds: normal S1 and normal S2; no gallop, no murmur and no cardiac rub Vessels: normal carotid upstroke; no JVD Extremities: no edema Chest (Breasts): Additional Comments: Well-healed sternal incision Gastrointestinal (Abdomen): normal bowel sounds, soft, nontender, no hepatosplenomegaly Musculoskeletal: no cyanosis or clubbing, extremities motor strength 5/5 Neurologic: PERRL, EOMI, accommodation nl, no face palsy, no dysarthria Results & Data Vital Signs (Past 12 Hours) Vital Signs Temp Pulse Pulse Pulse Resp BP BP 01/21/25 08:06 36.7 C 62 16 120/67 01/21/25 07:17 50 L 01/21/25 02:08 36.7 C 60 16 101/54 L 01/20/25 22:36 36.5 C 57 L 18 127/79 01/20/25 22:26 56 L Pulse Ox O2 Del Method 01/21/25 08:06 97 Room Air 01/21/25 07:17 01/21/25 02:08 97 Room Air 01/20/25 22:36 96 Room Air 01/20/25 22:26 Laboratory Results Laboratory Results - last 24 hr 01/20/25 01/20/25 01/20/25 14:40 16:08 18:23 WBC 5.63 RBC 4.64 L Hgb 14.2 Hct 41.8 L MCV 90.1 MCH 30.6 MCHC 34.0 RDW Std Deviation 42.0 RDW Coeff of Sudhakar 12.9 Plt Count 246 MPV 8.9 L Immature Gran % (Auto) 0.4 Neut % (Auto) 67.0 Lymph % (Auto) 21.5 [place] % (Auto) 8.5 Eos % (Auto) 2.1 Baso % (Auto) 0.5 Neut # (Auto) 3.77 Lymph # (Auto) 1.21 [place] # (Auto) 0.48 Eos # (Auto) 0.12 Baso # (Auto) 0.03 Immature Gran # (Auto) 0.02 PT 10.3 INR 1.0 APTT 25 PTT Ratio 0.9 Sodium 140 Potassium 3.9 Chloride 105 Carbon Dioxide 26 Anion Gap 9 BUN 15 Creatinine 0.90 Est Cr Clr Drug Dosing 81.1 eGFR 99.62 BUN/Creatinine Ratio 16.7 Glucose 149 H POC Glucose 95 117 H Calcium 9.3 Total Bilirubin 0.6 AST 18 ALT 25 Alkaline Phosphatase 55 Troponin I High Sens 2.8 Total Protein 6.6 Albumin 4.5 Globulin 2.1 L Albumin/Globulin Ratio 2.1 H Lipase 39 01/20/25 01/21/25 22:36 08:14 WBC RBC Hgb Hct MCV MCH MCHC RDW Std Deviation RDW Coeff of Sudhakar Plt Count MPV Immature Gran % (Auto) Neut % (Auto) Lymph % (Auto) [place] % (Auto) Eos % (Auto) Baso % (Auto) Neut # (Auto) Lymph # (Auto) [place] # (Auto) Eos # (Auto) Baso # (Auto) Immature Gran # (Auto) PT INR APTT PTT Ratio Sodium Potassium Chloride Carbon Dioxide Anion Gap BUN Creatinine Est Cr Clr Drug Dosing eGFR BUN/Creatinine Ratio Glucose POC Glucose 98 88 Calcium Total Bilirubin AST ALT Alkaline Phosphatase Troponin I High Sens Total Protein Albumin Globulin Albumin/Globulin Ratio Lipase Diagnostic Findings Stress echocardiogram without induced ischemia by EKG or echocardiographic criteria at 5 minutes and 30 seconds on a standard Mathieu protocol, 7.0 METS and 89% age-predicted maximal heart rate. Fatigue and mild throat burning at peak exertion. Late recovery inferior ST segment abnormalities on EKG consistent with known circumflex disease PG Care Time/CCT Total # of Minutes Spent Total Time Spent with Patient: Total time spent is greater than 50% in coordination of care (as documented) at patient's floor/unit and/or counseling patient: Coding Level of Care Code 05716 IN/OBS CONSULT LVL 5,80M History Comprehensive Exam Comprehensive Medical Decision Making High Complexity Diagnoses Chest pain R07.9 Hx of CABG Z95.1 Type 2 diabetes mellitus with other circulatory complication, with long-term current use of insulin E11.9 Time Spent (min) 85
--- NOTE | 2025-01-21 10:39 | Discharge Summary ---
Discharge Summary Date of Service January 21, 2025 Principal Dx & Hospital Course #1 = Principal Diagnosis (1) Chest pain: -asa, plavix, metoprolol, statin -nitro prn -Cardiology Dr. Quiñones spoken with -stress test in am -keep NPO -Stress test negative for any evidence of ischemia (2) Coronary artery disease: -s/p CABGx3 (3) T2DM (type 2 diabetes mellitus): -insulin pump -lantus -pharm consult for glycemic management Plan Heparin SQ for DVT px Admission HPI Per Admitting Provider Pt is a 59 y/o male with pmh of CAD s/p CABG x3, DM who presents with "burning in his chest" that started earlier today. Pt denies any palpitations or SOB. He currently rates the discomfort at 1/10. In the ER his EKG and troponin were negative for ischemia. His case was discussed with his middle school history teacher Dr. Quiñones who recommended admission for stress test in the am. Pt was initially reluctant to stay, however later on agreed. Discharge Exam GENERAL APPEARANCE NAD, activity normal for age, well developed/ well nourished, no cyanosis, pallor, or diaphoresis. EYES lids/conjunctiva normal. EARS/NOSE/THROAT Mucous membranes moist, nares normal, lips/teeth normal uvula midline without oral pharyngeal erythema, exudate or swelling TMs normal bilaterally. No lymphangitis/lymphedema. HEAD/NECK normocephalic atraumatic, no facial trauma, neck is supple. RESPIRATORY respiratory effort normal, speaks in full sentences, no tripod position, no accessory muscle use. Lungs clear to auscultation without rhonchi, wheezes, rales CARDIAC Regular rate and rhythm, no edema. ABDOMINAL Soft, ND/NT. No evidence of fluid wave. No pulsatile masses on exam, rebound tenderness, Ordoñez sign or pain over Mcburney's point. MUSCLES/EXTREMITIES No abnormal range of motion, no swelling. SKIN Warm, pink and dry. No rashes, dermatoses, petechiae or lesions. NEUROLOGICAL Speech is clear and appropriate. Normal level of consciousness. Gait and coordination are normal. 5/5 strength in all extremities. PSYCH Normal mood and affect. Judgement/competence is appropriate Discharge Plan Discharge Items Patient Disposition: Home - Self-Care Reason For Visit: CHEST PAIN Discharge Diagnosis: Chest pain Condition on Discharge: Good Activity: Resume your previous activity Non-emergency contact: Primary Care Provider Call non-emergency contact if: you have any medication questions Follow-up/Referrals: Otto Lindsay MD [Primary Care Provider] - Diet: Carb Consistent or DM2 Addtl Attending Provider Instructions: Follow up with PMD in 1 week Pending Studies at Discharge: No Stand-Alone Forms: [facility], Work/School Release, Smoking Cessation Medications and DC Order Prescriptions: Continued (DME) lancets [OneTouch Delica Plus Lancet] 33 gauge misc See Rx Instructions .Route Qty: 450 3RF Rx Instructions: use to test blood sugar 5 times daily (DME) Dexcom G7 Sensor Device See Rx Instructions .ROUTE .MEDSUPPLY Qty: 9 3RF Rx Instructions: change every 10 days insulin aspart U-100 [Novolog U-100 Insulin aspart] 100 unit/mL solution 85 unit continuous subcutaneous infusion DAILY Qty: 30 5RF Rx Instructions: for use in insulin pump ezetimibe 10 mg tablet 10 mg PO DAILY Qty: 30 5RF (DME) pen needle, diabetic [Comfort EZ Pen [place]] 31 gauge x 3/16" needle See Rx Instructions .ROUTE .MEDSUPPLY Qty: 400 3RF Rx Instructions: Inject insulin four times daily (DME) Dexcom G7 Collar Runner Misc See Rx Instructions .ROUTE .MEDSUPPLY Qty: 1 0RF Rx Instructions: As directed (DME) Accu-Chek Guide test strips Strip See Rx Instructions .Route Qty: 100 4RF Rx Instructions: Test up to three times a day. atorvastatin 80 mg tablet 80 mg PO HS Qty: 30 5RF multivitamin [Multiple Vitamins] Tablet 1 tab PO QAM metoprolol tartrate 25 mg Tablet 25 mg PO BID clopidogrel 75 mg Tablet 75 mg PO QAM dapagliflozin propanediol [Farxiga] 10 mg Tablet 10 mg PO QAM pantoprazole 20 mg tablet,delayed release (DR/EC) 20 mg PO QAM metformin 500 mg tablet extended release 24 hr 1,000 mg PO BID aspirin 81 mg Tablet,Delayed Release (Dr/Ec) 81 mg PO DAILY nitroglycerin 0.4 mg tablet, sublingual 0.4 mg sublingual Q5M Qty: 1 2RF Discharge Orders: Discharge Order (Routine); Ordered 01/21/25 Ordered By: William Oviedo Admission Data Admit Date/Time: 01/20/25 16:30 Attending Provider: William Oviedo Admit Provider: William Oviedo Primary Care Provider: Otto Lindsay Other Providers: Pawan Quiñones; William Oviedo Hospital Stay Data Consultations 01/20/25 15:42 ED Decision to Admit Stat 01/20/25 16:25 Consult Cardiology Routine Pending Results Patient Have Any Pending Studies at Discharge: No Discharge Instructions Given to Patient (Per Discharging Provider) Follow up with PMD in 1 week Total Time Total Time Spent Total Time Spent (In Minutes): 50 Coding Level of Care Code 67170 INP/OBS DISCH >30 MIN Diagnoses Chest pain R07.9 Coronary artery disease I25.10 Type 2 diabetes mellitus with other circulatory complication, with long-term current use of insulin E11.9
[2025-01-21] MEDS: PNEUMOCOCCAL VACCINE (PCV20) 20-VAL CONJ-DIP CRM/PF 0.5 ML SYR IM ONE (11:03)
[2025-01-21] MEDS: INFLUENZA VACC TS2025-26(6m+)/PF (IIV3) 0.5mL Syr IM ONE (11:05)
--- NOTE | 2025-01-21 17:59 | Electrocardiogram Report ---
Test Reason : Blood Pressure : */* mmHG Vent. Rate : 61 BPM Atrial Rate : 61 BPM P-R Int : 142 ms QRS Dur : 88 ms QT Int : 396 ms P-R-T Axes : 64 59 72 degrees QTcB Int : 398 ms Normal sinus rhythm Normal ECG When compared with ECG of 08-Feb-2024 19:30, No significant change was found Confirmed by Otto Okeefe ([id number]) on 01/21/2025 5:58:56 PM Referred By: REFERRED SELF Confirmed By: Otto Okeefe
== END 2025-01-21 11:40 | disposition home or self-care (01) | DRG 313 ==
LOC: ED 14:25 → INTOOBSV 16:30 → EDINP 16:30 → 2N 22:07